=== PATIENT | female | born 1975 | race Two or more races ===

== ENCOUNTER → 2021-10-05 15:24 | Outpatient (BNV) | payer MEDICAID, SELFPAY | PROVIDERS: PCP Family Medicine; Visit Provider Internal Medicine Medical Oncology | DX: D50.9 Iron deficiency anemia, unspecified (principal) | CPT/HCPCS: 99203; 99213; 99214 ==

== ENCOUNTER 2022-05-02 13:26 | Outpatient (REF) | payer MEDICAID, SELFPAY ==
--- NOTE | ~2022-05-02 | MM_ITS ---
EXAMINATION: MM SCREENING DIGITAL BREAST TOMOSYNTHESIS, BILATERAL CLINICAL INFORMATION: Screening. Asymptomatic. The lifetime risk of breast cancer based on the Tyrer-Cuzick Model is 7%. COMPARISON: Mammography: 09/19/2019 (baseline) TECHNIQUE: Digital breast tomosynthesis is performed in both the craniocaudal and mediolateral oblique views along with computer-aided detection (CAD). Synthesized 2D images are generated from the tomosynthesis. FINDINGS: There are scattered areas of fibroglandular density (ACR BI-RADS breast composition Category b). Breast tissue composition borders on predominantly fatty. Background fibroglandular and stromal markings are normal. There is no mass or architectural abnormality or abnormal calcifications. The axilla and skin contours are unremarkable. MM/MM tomosynthesis screening BI IMPRESSION: No mammographic evidence of malignancy. ASSESSMENT: BI-RADS 1: Negative RECOMMENDATION: Routine annual mammography screening. This patient's information was entered into a reminder system with a target due date for their next mammogram.
== END 2022-05-02 13:27 | disposition home or self-care (01) ==
LOC: HO.MAMMO 13:26
PROVIDERS: Visit Provider Family Medicine
DX: Z12.31 Encounter for screening mammogram for malignant neoplasm of breast (principal)
CPT/HCPCS: 77063; 77067

== ENCOUNTER 2022-10-24 10:56 | Outpatient (REF) | payer MEDICAID, SELFPAY | END 2022-10-24 10:57 | disposition home or self-care (01) | LOC: HO.MDS 10:56 | PROVIDERS: Visit Provider Internal Medicine Medical Oncology | DX: D50.9 Iron deficiency anemia, unspecified (principal) | CPT/HCPCS: 96365; J1756 ==

== ENCOUNTER 2022-10-28 17:01 | Outpatient (REF) | payer MEDICAID, SELFPAY ==
--- NOTE | ~2022-10-28 | US_ITS ---
EXAMINATION: US VENOUS WITH DOPPLER UPPER EXTREMITY, RIGHT CLINICAL INFORMATION: Right arm edema and swelling. Thrombophlebitis suspected. COMPARISON: None TECHNIQUE: Ultrasound of the upper extremity is performed using compression sonography and color and pulse Doppler flow with assessment of augmentation of flow. There is also imaging and Doppler assessment of the jugular and subclavian veins. Spectral analysis with color-flow imaging is performed. FINDINGS: Respiratory variation, normal compression, and augmented flow are noted throughout the upper extremity including the axillary and brachial veins. There is normal flow in the internal jugular and subclavian veins. There is superficial venous thrombosis in the distal cephalic vein. The brachial vein appears patent and compressible. US/US venous duplex UE RT IMPRESSION: 1. No DVT demonstrated in the right upper extremity. 2. Superficial venous thrombosis/thrombophlebitis of the distal cephalic vein.
== END 2022-10-28 17:02 | disposition home or self-care (01) ==
LOC: HO.US 17:01
PROVIDERS: Visit Provider Emergency Medicine
DX: T80.1XXA Vascular complications following infusion, transfusion and therapeutic injection, initial encounter (principal); I80.8 Phlebitis and thrombophlebitis of other sites; M79.601 Pain in right arm
CPT/HCPCS: 93971

== ENCOUNTER 2022-11-04 12:45 | Outpatient (REF) | payer MEDICAID, SELFPAY | END 2022-11-04 12:46 | disposition home or self-care (01) | LOC: HO.MDS 12:45 | PROVIDERS: Visit Provider Internal Medicine Medical Oncology | DX: D50.9 Iron deficiency anemia, unspecified (principal) | CPT/HCPCS: 96365; J1756 ==

== ENCOUNTER 2022-11-21 12:52 | Outpatient (REF) | payer MEDICAID, SELFPAY ==
[2022-11-21 13:36] LABS: MANUAL DIFF FLAG NO
[2022-11-21 13:44] LABS: Basophils Percent Auto 0.5 % (0-2); Eosinophils Absolute Auto 0.2 X10*3/uL (0.0-0.4); Eosinophils Percent Auto 2.5 % (0-4); Hematocrit 32.1 % (37.0-47.0); Hemoglobin 9.4 g/dl (12.0-16.0); Imm Gran Abs Auto 0.02 X10*3/uL (0.00-0.03); Imm Gran Pct Auto 0.3 % (0.0-0.4); Lymphocytes Absolute Auto 1.9 X10*3/uL (1.2-4.9); Lymphocytes Percent Auto 28.7 % (20-40); Mean Corpuscular HGB Conc 29.3 g/dl (31.0-35.0); Mean Corpuscular Hemoglobin 21.2 pg (27.0-33.0); Mean Corpuscular Volume 72.3 fL (80.0-98.0); Monocytes Absolute Auto 0.4 X10*3/uL (0.1-1.2); Neutrophils Absolute Auto 4.1 x10*3/uL (2.0-8.3); Platelet Count 311 X10*3/uL (160-400); Red Blood Count 4.44 X10*6/uL (4.20-5.50); Red Cell Distribution Width 22.7 % (11.0-16.0); White Blood Count 6.5 X10*3/uL (4.8-10.8)
== END 2022-11-21 12:53 | disposition home or self-care (01) ==
LOC: HO.MDS 12:52
PROVIDERS: Visit Provider Internal Medicine Medical Oncology
DX: D50.9 Iron deficiency anemia, unspecified (principal)
CPT/HCPCS: 36415; 85025; 96365; J1756

== ENCOUNTER 2022-12-06 11:02 | Outpatient (REF) | payer MEDICAID, SELFPAY ==
[2022-12-06 11:33] LABS: MANUAL DIFF FLAG NO
[2022-12-06 11:35] LABS: Basophils Percent Auto 0.5 % (0-2); Eosinophils Absolute Auto 0.2 X10*3/uL (0.0-0.4); Eosinophils Percent Auto 3.2 % (0-4); Hematocrit 33.9 % (37.0-47.0); Hemoglobin 10.3 g/dl (12.0-16.0); Imm Gran Abs Auto 0.02 X10*3/uL (0.00-0.03); Imm Gran Pct Auto 0.3 % (0.0-0.4); Lymphocytes Absolute Auto 1.7 X10*3/uL (1.2-4.9); Lymphocytes Percent Auto 26.6 % (20-40); Mean Corpuscular HGB Conc 30.4 g/dl (31.0-35.0); Mean Corpuscular Hemoglobin 22.2 pg (27.0-33.0); Mean Corpuscular Volume 72.9 fL (80.0-98.0); Mean Platelet Volume 9.5 fL (9.4-12.3); Monocytes Absolute Auto 0.4 X10*3/uL (0.1-1.2); Monocytes Percent Auto 6.6 % (2-11); Neutrophils Absolute Auto 4.1 x10*3/uL (2.0-8.3); Neutrophils Percent Auto 62.8 % (45-73); Platelet Count 238 X10*3/uL (160-400); Red Blood Count 4.65 X10*6/uL (4.20-5.50); White Blood Count 6.5 X10*3/uL (4.8-10.8)
== END 2022-12-06 11:03 | disposition home or self-care (01) ==
LOC: HO.MDS 11:02
PROVIDERS: Visit Provider Internal Medicine Medical Oncology
DX: D50.9 Iron deficiency anemia, unspecified (principal)
CPT/HCPCS: 36415; 85025; 96365; J1756

== ENCOUNTER 2022-12-15 10:59 | Outpatient (REF) | payer MEDICAID, SELFPAY | END 2022-12-15 11:00 | disposition home or self-care (01) | LOC: HO.MDS 10:59 | PROVIDERS: Visit Provider Internal Medicine Medical Oncology | DX: D50.9 Iron deficiency anemia, unspecified (principal) | CPT/HCPCS: 96365; J1756 ==

== ENCOUNTER 2022-12-23 15:27 | Outpatient (REF) | payer MEDICAID, SELFPAY ==
[2022-12-23 15:13] LABS: MANUAL DIFF FLAG NO
[2022-12-23 15:15] LABS: Basophils Percent Auto 0.5 % (0-2); Eosinophils Absolute Auto 0.2 X10*3/uL (0.0-0.4); Eosinophils Percent Auto 2.9 % (0-4); Hematocrit 33.3 % (37.0-47.0); Hemoglobin 10.3 g/dl (12.0-16.0); Lymphocytes Absolute Auto 1.8 X10*3/uL (1.2-4.9); Mean Corpuscular HGB Conc 30.9 g/dl (31.0-35.0); Mean Corpuscular Hemoglobin 23.7 pg (27.0-33.0); Mean Corpuscular Volume 76.7 fL (80.0-98.0); Mean Platelet Volume 10.2 fL (9.4-12.3); Monocytes Absolute Auto 0.4 X10*3/uL (0.1-1.2); Monocytes Percent Auto 6.2 % (2-11); Neutrophils Absolute Auto 4.1 x10*3/uL (2.0-8.3); Neutrophils Percent Auto 62.4 % (45-73); Platelet Count 317 X10*3/uL (160-400); Red Blood Count 4.34 X10*6/uL (4.20-5.50); Red Cell Distribution Width 22.8 % (11.0-16.0); White Blood Count 6.5 X10*3/uL (4.8-10.8)
== END 2022-12-23 15:28 | disposition home or self-care (01) ==
LOC: HO.MDS 15:27
PROVIDERS: Visit Provider Internal Medicine Medical Oncology
DX: D50.9 Iron deficiency anemia, unspecified (principal)
CPT/HCPCS: 36415; 85025; 96365; J1756

== ENCOUNTER 2024-01-02 13:21 | Outpatient (REF) | payer MEDICAID, SELFPAY | END 2024-01-02 13:22 | disposition home or self-care (01) | LOC: HO.MAMMO 13:21 | PROVIDERS: PCP Family Medicine; Visit Provider Family Medicine | DX: Z12.31 Encounter for screening mammogram for malignant neoplasm of breast (principal) | CPT/HCPCS: 77063; 77067 ==

== ENCOUNTER → 2024-01-02 13:30 | Outpatient (BNV) | payer MEDICAID, SELFPAY | PROVIDERS: PCP Family Medicine; Visit Provider Radiology Diagnostic Radiology | DX: Z12.31 Encounter for screening mammogram for malignant neoplasm of breast (principal) | CPT/HCPCS: 77063; 77067 ==

== ENCOUNTER 2024-01-10 13:04 | Outpatient (AMB) | payer MEDICAID, SELFPAY ==
--- NOTE | 2024-01-10 13:10 | A.OFFVIS_ITS ---
Intake Vital Signs 01/10/24 13:12 Height 5 ft 3 in Weight 167 lb 8.821 oz BMI 29.7 BP 132/80 Blood Pressure Location Lt brachial Position Sitting Pulse 94 Intake Visit Reasons: Colonoscopy screening Intake Note: Siobhan presents in the office as a new patient colonoscopy screening. CC: Head Of Human Resources Required: No Allergies No Known Allergies [No Known Allergies*] Allergy (Unverified 01/10/24 13:12) Medication List - Last Reconciled 01/10/24 by Loulou Fuentes PA-C cholecalciferol (vitamin D3) (Vitamin D3) 1 cap PO DAILY lisinopril 30 mg PO DAILY omeprazole 1 cap PO DAILY HPI HPI Comments History of Present Illness Details A 48 y/o female referred for index screening colonoscopy She is hesitant- she does not want colonoscopy- her sister did cologuard-she had questions about this. No family hx colon cancer She has no GI concerns Appetite good Bowels are normal No nausea, Vomiting, hematemesis, hematochezia fever or chills PFSH Medical History (Updated 01/10/24 @ 13:40 by Loulou Fuentes PA-C) Personal history of kidney stones Depression Anxiety High cholesterol Pre-diabetes Microcytic anemia Surgical History Hx of removal of cyst Family History Maternal Grandmother Heart disease Father Cirrhosis of liver Social History Household Members: Spouse and Children Housing: Apartment Are you a primary inspector health care facilities to a significant other at home: No Do you presently have visiting nurse or other home services: No Alcohol intake: current Alcohol intake frequency: holidays/special occasions only Patient Tobacco Use Status: Current everyday Tobacco user Tobacco use type: Cigarette service: No Current occupational status: employed Current occupation: [employer] Review of Systems Const Details: All systems reviewed and are negative All systems reviewed & are unremarkable except as noted in HPI and below Physical Exam Vital Signs: Last Vital Signs Pulse 94 01/10/24 13:12 BP 132/80 01/10/24 13:12 BMI result Body Mass Index 29.7 Const General: cooperative, healthy appearing, comfortable and no acute distress Orientation/consciousness: patient oriented x3 Limitations: no limitations Eyes Sclerae: sclerae normal Resp Effort & Inspection: normal respiratory effort and able to speak in complete sentences Auscultation: clear to auscultation bilaterally, no rales, no rhonchi and no wheezes Cardio Rate: regular rate Rhythm: regular rhythm Heart sounds: S1 normal heart sound present and S2 normal heart sound present GI Palpation (GI): Soft to palpation and nontender Auscultation: normal bowel sounds Skin General skin exam: no rashes or lesions noted Neuro General: patient oriented x3 Extrem General: Yes full ROM Psych Appearance: grossly normal and well kempt Mental Status: mental status grossly normal Speech and movement: Normal speech and movement present and Clear speech present Affect: normal affect Attitude: cooperative Thought process: Normal thought process present Thought content: Normal thought content present Insight: Good insight present (Psych) Judgement: Good judgement present (Psych) Assessment & Plan Assessment & Plan (1) Encounter for screening colonoscopy: Comment: Very pleasant 48-year-old female referred for index screening colonoscopy very hesitant-we discussed alternatives to include Cologuard, proximally 13% false positive-if positive if we recommend colonoscopy Colonoscopy is gold standard Code(s): Z12.11 - Encounter for screening for malignant neoplasm of colon Plan: Cologuard if positive colonoscopy Plan cologuard if positive colonoscopy Orders: Orders Colonoscopy - GI Use Only 01/10/24 Z12.11 - Encounter for screening for malignant neoplasm of colon Referrals Cologuard Test Z12.11 - Encounter for screening for malignant neoplasm of colon Medications: New polyethylene glycol 3350 (Miralax) Take as directed by mouth the day before your procedure. 238 grams PO ONCE PRN 238 grams 0RF laxative effect 1 day bisacodyl (Dulcolax (bisacodyl)) Day before procedure @ 12 noon Take 4 tablets by mouth followed by large glass of water 20 mg (4 x 5 mg) PO ONCE PRN 4 tabs 0RF colonoscopy prep 1 day Z12.11 - Encounter for screening for malignant neoplasm of colon Patient Instructions: Will schedule colonoscopy-however if she reconsiders she will inform us. We discussed procedure, rare risk need for escorted due to anesthesia as well as prep MiraLax Gatorade, reviewed literature given We have submitted for Cologuard-at least this will give us - colon cancer screen. She will call 2 weeks after submitting sample for results She is encouraged to call with any questions or concerns or reconsideration. Appreciate the opportunity assist in the care this pleasant patient Coding Level of Care Code New Pt Level 3 (36393) Diagnoses Encounter for screening colonoscopy Z12.11 Time Spent (min) 30
[2024-01-10 13:12] VITALS: BP 132/80; PULSE 94; BMI 29.7
== END 2024-01-10 14:30 | disposition home or self-care (01) ==
PROVIDERS: Visit Provider Physician Assistant
DX: Z12.11 Encounter for screening for malignant neoplasm of colon (principal); Z01.818 Encounter for other preprocedural examination
CPT/HCPCS: 99203

== ENCOUNTER → 2024-01-10 13:04 | Outpatient (BNVA) | payer MEDICAID, SELFPAY | PROVIDERS: Visit Provider Physician Assistant | DX: Z01.818 Encounter for other preprocedural examination (principal) | CPT/HCPCS: 99212 ==

== ENCOUNTER 2024-01-17 10:45 | Outpatient (REF) | payer MEDICAID, SELFPAY ==
--- NOTE | ~2024-01-17 | US_ITS ---
EXAMINATION: US PELVIS CLINICAL INFORMATION: Ongoing menorrhagia and anemia; the last menstrual period was on 11/30/2023. COMPARISON: CT abdomen and pelvis dated 07/07/2020. TECHNIQUE: Ultrasound of the pelvis is performed using both transabdominal and transvaginal transducers along with Doppler. Transvaginal imaging is performed due to inadequate visualization transabdominally. FINDINGS: The uterus is of normal size and echogenicity, measuring 8.5 x 4.9 x 5.4 cm. The uterus is anteverted and anteflexed. A regular homogeneous endometrium is identified measuring 1.1 cm. Nabothian cysts are seen within the cervix FIBROIDS: There is 1 fibroid seen. 1. Location: Mid rightward body, subendometrial. Size: 3.4 x 2.8 x 3.1 cm. Fibroid characteristics: Heterogeneous echotexture. Both ovaries are of normal size and echogenicity. The ovaries show normal doppler flow. The right ovary measures 2.7 x 2.0 x 1.9 cm for a volume of 5.2 mL. A few punctate calcifications are noted. The left ovary measures 2.7 x 1.9 x 2.1 cm for a volume of 5.5 mL. There is no pelvic free fluid. No adnexal mass is seen. US/US pelvic and transvaginal IMPRESSION: 1. A uterine fibroid is seen, as detailed. 2. Nabothian cysts are seen within the cervix. 3. .There are punctate calcifications, possibly sequela of prior infection or inflammation, or psammomatous calcifications. These are of doubtful clinical significance.
== END 2024-01-17 10:46 | disposition home or self-care (01) ==
LOC: HO.US 10:45
PROVIDERS: PCP Student in an Organized Health Care Education/Training Program; Visit Provider Student in an Organized Health Care Education/Training Program
DX: D50.9 Iron deficiency anemia, unspecified (principal); D25.9 Leiomyoma of uterus, unspecified; N88.8 Other specified noninflammatory disorders of cervix uteri; N84.1 Polyp of cervix uteri
CPT/HCPCS: 76830; 76856

== ENCOUNTER 2024-01-19 11:43 | Outpatient (REF) | payer MEDICAID, SELFPAY ==
[2024-01-19 14:03] LABS: Estimated Average Glucose 148 mg/dL; Hemoglobin A1c % 6.8 % (<6.0)
[2024-01-19 14:04] LABS: Hematocrit 35.6 % (37.0-47.0); Hemoglobin 9.8 g/dl (12.0-16.0); Mean Corpuscular HGB Conc 27.5 g/dl (31.0-35.0); Mean Corpuscular Hemoglobin 18.3 pg (27.0-33.0); Mean Corpuscular Volume 66.4 fL (80.0-98.0); Mean Platelet Volume 10.4 fL (9.4-12.3); Platelet Count 270 X10*3/uL (160-400); Red Blood Count 5.36 X10*6/uL (4.20-5.50); Red Cell Distribution Width 19.4 % (11.0-16.0); White Blood Count 5.5 X10*3/uL (4.8-10.8)
[2024-01-19 14:23] LABS: Alanine Aminotransferase 32 U/L (0-31); Albumin Level 4.4 g/dL (3.5-5.0); Alkaline Phosphatase 81 U/L (39-117); Anion Gap 13 (12-20); Aspartate Amino Transferase 30 U/L (5-31); Bilirubin Total 0.3 mg/dL (0.0-1.0); Blood Urea Nitrogen 12 mg/dL (9-16); Calcium 9.4 mg/dL (8.4-10.2); Carbon Dioxide 28 mmol/L (22-29); Chloride 103 mmol/L (96-108); Cholesterol 216 mg/dL (<200); Estimated Glomerular Filt Rate > 60; Glucose Random 173 mg/dL (60-115); HDL Cholesterol 43 mg/dL (>40); Iron 23 mcg/dL (30-160); LDL Cholesterol Calculated 129 mg/dL (<100); Percent Iron Saturation 5 % (15-50); Potassium 5.3 mmol/L (3.3-5.1); Sodium 139 mmol/L (135-145); Total Iron Binding Capacity 470 mcg/dL (228-428); Total Protein 7.7 g/dL (6.5-8.0); Triglycerides 224 mg/dL (<150); Unsaturated Iron Binding 447 ug/dL
[2024-01-19 14:26] LABS: Ferritin 11 ng/mL (10-250); TSH reflex Free T4 1.09 uIU/mL (0.32-4.0)
[2024-01-19 17:16] LABS: CT PCR NOT DETECTED (Not Detect.); NG PCR NOT DETECTED (Not Detect.)
[2024-01-20 09:47] LABS: HBS Num1 119.73 mIU/mL (0-7.99); HBc Num1 0.13 S/CO (0.00-0.79); HBsAGNum1 0.43 S/CO (0.00-0.99); HIV AB/AG Nonreactive (Nonreactive); HIV Num 1 0.06 S/CO (0.00-0.99); Hepatitis B Core Antibody Nonreactive (Nonreactive); Hepatitis B Surface Antigen Negative (Negative); ~HepC Num1 0.14 S/CO (0.00-0.79); ~Hepatitis B Surface Antibody REACTIVE (Nonreactive); ~Hepatitis C Antibody Nonreactive (Nonreactive)
[2024-01-20 09:51] LABS: Syphilis Screen Nonreactive (Nonreactive)
== END 2024-01-19 11:44 | disposition home or self-care (01) ==
LOC: HO.HHCL 11:43
PROVIDERS: Visit Provider Student in an Organized Health Care Education/Training Program
DX: Z00.00 Encounter for general adult medical examination without abnormal findings (principal); D50.9 Iron deficiency anemia, unspecified; Z20.2 Contact with and (suspected) exposure to infections with a predominantly sexual mode of transmission
CPT/HCPCS: 0353U; 36415; 80053; 80061; 82728; 83036; 83540; 84443; 85027; 86704; 86706; 86780; 86803; 87340; 87389

== ENCOUNTER 2024-03-27 10:54 | Outpatient (AMB) | payer MEDICAID, SELFPAY ==
--- NOTE | 2024-03-27 10:59 | A.OFFVIS_ITS ---
Vital Signs 03/27/24 11:00 Height 5 ft 3 in Weight 169 lb BMI 29.9 BP 142/80 H Intake Visit Reasons: US follow up/bleeding/PCP referral Intake Note: Having irregular period and painful Field Recorder Required: No Information Interpreted: non-clinical & clinical Rehab/Pre Vocational Counselor: Rehab/Pre Vocational Counselor Present (Aidyn) Allergies No Known Allergies [No Known Allergies*] Allergy (Verified 03/27/24 11:07) Is last menstrual period known: Yes Last menstrual period: 02/28/24 Post menopausal: No HPI Comments Details: Patient is here today referred from her primary care due to her heavy menstrual bleeding and history of anemia. She reports her cycles were usually on time but had skipped up to 3 months in early winter. Bleeding is 6 days and heavy with clots for the entirety. She reports her last Pap was 2021. Records reveal GC chlamydia were negative, fibroid noted on ultrasound. Admits to being sexually active with long-term recent STD exposure. Does not have any pelvic pain. Currently having treatment plan and follow up for her hypertension. [facility] Medical History (Updated 03/27/24 @ 12:48 by Madison Epstein CNM) Fibroid Personal history of kidney stones Depression Anxiety High cholesterol Pre-diabetes Microcytic anemia Surgical History Hx of tubal ligation Hx of removal of cyst Family History Maternal Grandmother Heart disease Father Cirrhosis of liver Social History Household Members: Spouse and Children Housing: Apartment Are you a primary career development manager to a significant other at home: No Do you presently have visiting nurse or other home services: No Alcohol intake: current Alcohol intake frequency: a few times a week Patient Tobacco Use Status: Current everyday Tobacco user Tobacco use type: Cigarette Cigarettes Per Day: 9 service: No Current occupational status: employed 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 Female Reproductive History Menstrual Age of Menarche: 15 Date of last menstrual period: 02/28/24 control method: permanent sterilization Total pregnancies: 4 Full term: 3 Number of Living Children: 3 Ab induced: 1 Date of last pap smear: 03/16/22 (negative) History of abnormal pap smear: Yes Date of Mammogram: 01/02/24 Review of Systems Const All systems reviewed & are unremarkable except as noted in HPI and below Physical Exam Vital Signs: Last Vital Signs BP 142/80 H 03/27/24 11:00 BMI result Body Mass Index 29.9 Const General: cooperative, healthy appearing and no acute distress Orientation/consciousness: patient oriented x3 GI Inspection: Yes normal to inspection Palpation (GI): Soft to palpation and Other GI palpation findings present (Nontender) Rectal Exam - Female: visual inspection normal General: Yes bladder normal to palpation External Female Exam: normal appearance of the urethra Speculum Exam - Vagina: normal appearance of the vagina, normal palpation and normal vaginal discharge Speculum Exam - Cervix: normal appearance of the cervix, normal palpation and Other cervical findings present (Ectopy with superficial blood vessels bled slightly with Pap) Bimanual exam- vagina & uterus: normal bimanual exam, normal palpation, uterine size normal, bladder normal to palpation, normal palpation, uterine shape normal and non-tender Bimanual Exam- Adnexa, other: normal adnexae Neuro General: patient oriented x3 Results Reviewed Results Reviewed: [place] [id number] Ultrasound Report Signed Patient: Siobhan Armijo MR#: [id number] : 1975 Acct:[id number] Age/Sex: 48 / F ADM Date: 01/17/24 Loc: .[place] Attending Dr: Angelia Minor MD Ordering Physician: Angelia Magdaleno MD Date of Service: 01/17/24 Procedure(s): US pelvic and transvaginal Accession Number(s): [id number] cc: Angelia Magdaleno MD~ EXAMINATION: US PELVIS CLINICAL INFORMATION: Ongoing menorrhagia and anemia; the last menstrual period was on 11/30/2023. COMPARISON: CT abdomen and pelvis dated 07/07/2020. TECHNIQUE: Ultrasound of the pelvis is performed using both transabdominal and transvaginal transducers along with Doppler. Transvaginal imaging is performed due to inadequate visualization transabdominally. FINDINGS: The uterus is of normal size and echogenicity, measuring 8.5 x 4.9 x 5.4 cm. The uterus is anteverted and anteflexed. A regular homogeneous endometrium is identified measuring 1.1 cm. Nabothian cysts are seen within the cervix FIBROIDS: There is 1 fibroid seen. 1. Location: Mid rightward body, subendometrial. Size: 3.4 x 2.8 x 3.1 cm. Fibroid characteristics: Heterogeneous echotexture. Both ovaries are of normal size and echogenicity. The ovaries show normal doppler flow. The right ovary measures 2.7 x 2.0 x 1.9 cm for a volume of 5.2 mL. A few punctate calcifications are noted. The left ovary measures 2.7 x 1.9 x 2.1 cm for a volume of 5.5 mL. There is no pelvic free fluid. No adnexal mass is seen. US/US pelvic and transvaginal IMPRESSION: 1. A uterine fibroid is seen, as detailed. 2. Nabothian cysts are seen within the cervix. 3. .There are punctate calcifications, possibly sequela of prior infection or inflammation, or psammomatous calcifications. These are of doubtful clinical significance. Dictated By: Derek Kirkpatrick MD Signed By: <Electronically signed by Derek Kirkpatrick MD in OV> 01/22/24 1520 DD/ 1119 TD/TT: Direct Support Staff Member: GURPREET Assessment & Plan Assessment & Plan (1) Abnormal uterine bleeding (AUB): Code(s): N93.9 - Abnormal uterine and vaginal bleeding, unspecified (2) Fibroid: Code(s): D21.9 - Benign neoplasm of connective and other soft tissue, unspecified Plan Discussed: Workup for AUB to include an endometrial biopsy, anticipatory guidance reviewed today for biopsy to include [id number] Tylenol or ibuprofen per manufacture's recommendation on dosing to be taken 1 hour before her procedure with food and fluids. Advised her that treatment would include consideration for progesterone only products with the recommendation of a Mirena IUD. Today she has not that interested because she had a friend to reports she developed cancer from her IUD. Due to her recent hypertension I advised her estrogen would be avoided at this time. All of her questions and concerns were addressed to the best of my ability and shared decision making. She is agreeable to the plan of care. Appointment to be scheduled today before leaving the office. This note is constructed using voice recognition software. While every effort has been made to ensure accuracy, rolling mill operator errors may have been included. Orders: Orders Pap Smear Today N93.9 - Abnormal uterine and vaginal bleeding, unspecified Bacterial Vaginosis Panel Today N93.9 - Abnormal uterine and vaginal bleeding, unspecified Coding Level of Care Code New Pt Level 4 (51480) Diagnoses Abnormal uterine bleeding (AUB) N93.9 Fibroid D21.9
[2024-03-27 11:00] VITALS: BP 142/80; BMI 29.9
== END 2024-03-27 13:23 | disposition home or self-care (01) ==
PROVIDERS: PCP Student in an Organized Health Care Education/Training Program; Visit Provider Advanced Practice Midwife
DX: N93.9 Abnormal uterine and vaginal bleeding, unspecified (principal); D21.9 Benign neoplasm of connective and other soft tissue, unspecified
CPT/HCPCS: 99204

== ENCOUNTER 2024-03-27 10:54 | Outpatient (REF) | payer MEDICAID, SELFPAY ==
[2024-03-27 16:15] LABS: Bacterial Vaginosis PCR NEGATIVE (Negative); Candida Group PCR NOT DETECTED (Not Detect); Candida glab krusei PCR NOT DETECTED (Not Detect); Trichomonas vaginalis PCR NOT DETECTED (Not Detect)
[2024-04-03 20:44] LABS: HPV mRNA E6/E7 rflx Not Detected (Not Detected)
== END 2024-03-27 10:55 | disposition home or self-care (01) ==
LOC: HO.LNP 10:54
PROVIDERS: PCP Student in an Organized Health Care Education/Training Program; Visit Provider Advanced Practice Midwife
DX: N93.9 Abnormal uterine and vaginal bleeding, unspecified (principal); N92.6 Irregular menstruation, unspecified; R10.2 Pelvic and perineal pain; D21.9 Benign neoplasm of connective and other soft tissue, unspecified; Z20.2 Contact with and (suspected) exposure to infections with a predominantly sexual mode of transmission
CPT/HCPCS: 0352U; 87624; 88142; 99212

== ENCOUNTER 2024-11-14 13:46 | Outpatient (REF) | payer MEDICAID, SELFPAY ==
[2024-11-14 16:17] LABS: Eosinophils Absolute Auto 0.2 X10*3/uL (0.0-0.4); Imm Gran Abs Auto 0.01 X10*3/uL (0.00-0.03); Imm Gran Pct Auto 0.2 % (0.0-0.4); MANUAL DIFF FLAG SCAN; SCAN SMEAR FLAG 1
[2024-11-14 16:18] LABS: Basophils Percent Auto 0.8 % (0-2); Eosinophils Percent Auto 3.2 % (0-4); Lymphocytes Absolute Auto 1.6 X10*3/uL (1.2-4.9); Lymphocytes Percent Auto 29.3 % (20-40); Mean Corpuscular HGB Conc 26.2 g/dl (31.0-35.0); Mean Corpuscular Hemoglobin 15.8 pg (27.0-33.0); Monocytes Absolute Auto 0.5 X10*3/uL (0.1-1.2); Monocytes Percent Auto 8.7 % (2-11); Neutrophils Absolute Auto 3.1 x10*3/uL (2.0-8.3); Neutrophils Percent Auto 57.8 % (45-73); PLT CLUMP 1; Red Blood Count 4.31 X10*6/uL (4.20-5.50); Red Cell Distribution Width 21.1 % (11.0-16.0)
[2024-11-14 16:24] LABS: Mean Corpuscular Volume 60.3 fL (80.0-98.0); PLT ABN DIST 1
[2024-11-14 16:27] LABS: Hemoglobin 6.8 g/dl (12.0-16.0)
[2024-11-14 16:28] LABS: Estimated Average Glucose 128 mg/dL; Hemoglobin A1C 75.3013 umol/L; Hemoglobin A1c % 6.1 % (<6.0); Total Hemoglobin (HGBA1C) 1742.7531 umol/L
[2024-11-14 16:38] LABS: Platelet Count 198 X10*3/uL (160-400); White Blood Count 5.3 X10*3/uL (4.8-10.8)
[2024-11-14 16:39] LABS: SLIDE REVIEW VERIFIED
[2024-11-14 17:07] LABS: Vitamin B12 422 pg/mL (200-900)
--- OUTSIDE RECORDS SUMMARY | 2024-11-14 17:37 | XMS_ITS | Clinical Summary ---
Author Organization [employer] Address [address] [place] [address] [address] [place] [address] Care Team Providers Care Science And Operations Officer Name Role Phone Sheyla Harris MD Primary Care Provider [phone] Madison Epstein Unavailable Meka García LEI Unavailable Allergies No known active allergies Medications rosuvastatin (Crestor) 10 MG tabletIndication s:Type 2 diabetes mellitus without complication, without long-term current use of insulin (CMS/HCC),Dyslip idemia Take 1 tablet (10 mg) by mouth Once per day. 30 tablet 02/28/20 24 025 Active Blood Glucose Monitoring Suppl (FreeStyle [place] Lite) w/Device kitIndications:T ype 2 diabetes mellitus without complication, without long-term current use of insulin (CMS/HCC) Use to test blood sugar bid dx dm 1 kit 02/28/20 24 Active glucose blood (FREESTYLE LITE) test stripIndications :Type 2 diabetes mellitus without complication, without long-term current use of insulin (CMS/HCC) Use bid. Dx diabetes 60 each 02/28/20 24 Active FreeStyle lancetsIndicatio ns:Type 2 diabetes mellitus without complication, without long-term current use of insulin (CMS/HCC) 1 each by Other route 2 times daily. Use bid, dx type 2 diabetes 60 each 02/28/20 24 Active Alcohol Swabs (Alcohol Pads) 70 % padsIndications: Type 2 diabetes mellitus without complication, without long-term current use of insulin (CMS/HCC) Use as directed on skin 100 each 02/28/20 24 Active semaglutide (Ozempic) 2 MG/1.5ML solution pen-injectorIndi cations:Type 2 diabetes mellitus without complication, without long-term current use of insulin ([facility]) Inject 0.25mg subcutaneously q week x 4 weeks then incase to 0.5mg subcutaneously q week. 1.5 mL 02/28/20 24 Active sennosides (Senokot) 8.6 MG tabletIndication s:Iron deficiency anemia, unspecified iron deficiency anemia type 1-2 tabs po nightly prn constipation 60 tablet 02/28/20 24 Active ferrous sulfate 325 (65 Fe) MG EC tabletIndication s:Iron deficiency anemia, unspecified iron deficiency anemia type TAKE 1 TABLET BY MOUTH TWICE A DAY WITH FOOD DONT CRUSH OR CHEW OR SPLIT 180 tablet 1 02/28/20 24 Active docusate sodium (Colace) 100 MG capsuleIndicatio ns:Iron deficiency anemia, unspecified iron deficiency anemia type Take 1 tab po bid prn constipation 60 capsule 02/28/20 24 Active Lancet Device misc 1 each 2 times daily. Use to check blood sugar twice per day 1 each 03/20/20 24 Active metFORMIN, OSM, (Fortamet) 500 MG 24 hr tabletIndication s:Type 2 Diabetes Mellitus Take 1 tablet (500 mg) by mouth Once per day. Do not crush, chew, or split. 90 tablet 3 05/02/20 24 025 Active dextran 70-hypromellose (artificial tears) 0.1-0.3 % ophthalmic solutionIndicati ons:Dry eyes, bilateral Administer 1 drop into both eyes if needed in the morning, at noon, and at bedtime for dry eyes. 15 mL 3 06/26/20 24 025 Active omeprazole (PriLOSEC) [address] capsuleIndicatio ns:Gastroesophag eal reflux disease, unspecified whether esophagitis present TAKE 1 CAPSULE BY MOUTH EVERY DAY BEFORE A MEAL NEEDED 90 capsule 08/20/20 24 Active lisinopril (Prinivil) 20 MG tabletIndication s:Essential (primary) hypertension Take 1 tablet (20 mg) by mouth Once per day. 90 tablet 1 11/14/19 25 026 Active nicotine polacrilex (Nicorette) 2 MG gumIndications:S moking Chew and park 1 gum every 1-2 hours as needed in place of cigarette 100 each 3 11/14/19 25 Active varenicline (Chantix) 0.5 MG tabletIndication s:Tobacco dependence syndrome Take 0.5 mg PO once daily on Days 1 through 3, then 0.5 mg PO twice daily on Days 4 through 7, and finally 1 mg PO twice daily on day 8 until the end of treatment. 12 tablet 2 01/10/20 24 025 Discontin ued(Side effects) varenicline (Chantix) 1 MG tabletIndication s:Tobacco dependence syndrome Take 1 tablet (1 mg) by mouth 2 times daily. 0.5 mg PO once daily on Days 1 through 3, then 0.5 mg PO twice daily on Days 4 through 7, and finally 1 mg PO twice daily on day 8 until the end of treatment. 60 tablet 2 01/10/20 24 025 Discontin ued(Side effects) lisinopril 20 MG tabletIndication s:Type 2 diabetes mellitus without complication, without long-term current use of insulin ([facility]) TAKE 1.5 TABLETS (30 MG TOTAL) BY MOUTH ONE TIME EACH DAY. 06/25/20 24 025 Discontin ued(Dose adjustmen t) Active Problems Problem Noted Date Diagnosed Date Cardiac risk counseling 09/10/2024 Overview (09/10/2024): Calculated 09/10/24: intermediate risk The 10-year ASCVD risk score (Micah SILVER, et al., 2019) is: 9.2% Values used to calculate the score: Age: 48 years Sex: Female Is Non- : No Diabetic: Yes Tobacco smoker: Yes Systolic Blood Pressure: 130 mmHg Is BP treated: No HDL Cholesterol: 43 mg/dL Total Cholesterol: 216 mg/dL Lab Results Component Value Date LDLCHOLCAL 129 (H) 01/19/2024 -Atherosclerotic Cardiovascular Disease (ASCVD) Risk Calculator is intended for a person age 40-79 without ASCVD and with LDL-cholesterol < 190/mg/dl to assesses the chances of developing heart disease over the next 10 years. -Tobacco cessation: discussed -Statin therapy: Crestor 10mg -Importance of moderate physical activity and nutrition interventions discussed. Type 2 diabetes mellitus, wi stefani long-term current use of insulin 02/28/2024 Overview (05/02/2024): Diabetes diagnosed 02/28/24 based on elevated A1c 6.8 Lab Results Component Value Date HGBA1C 6.8 (H) 01/19/2024 HGBA1C 6.2 (H) 09/28/2021 Lab Results Component Value Date CREATININE 0.80 01/19/2024 -Curtis/Arb: none -Statin therapy: rosuvastatin 10mg daily started 02/28/24 -Diabetic eye exam: referral placed for [facility] 02/28/24 -Diabetic foot exam: normal, risk cat 0 02/28/24 -Continue lifestyle modifications -Semiglutide 0.25 weekly denied twice -followed by RN type 2 diabetes team - metformin ER 500mg daily started 05/02/24 Assessment & Plan (02/28/2024 2:54 PM EDT): Diabetes diagnosed 02/28/24 based on elevated A1c 6.8 Lab Results Component Value Date HGBA1C 6.8 (H) 01/19/2024 HGBA1C 6.2 (H) 09/28/2021 Lab Results Component Value Date CREATININE 0.80 01/19/2024 -Curtis/Arb: none -Statin therapy: rosuvastatin 10mg daily started 02/28/24 -Diabetic eye exam: referral placed for [facility] 02/28/24 -Diabetic foot exam: normal, risk cat 0 02/28/24 -Continue lifestyle modifications -Semiglutide 0.25 weekly for 4 weeks then 0.5mg weekly thereafter started 02/28/24 -referral to RN for diabetic teaching on nutrition, glucose monitoring and medication administration 02/28/24 Fibroid 02/05/2024 Overview (02/05/2024): US 12/06/23: FIBROIDS: There is 1 fibroid seen. Location: Mid rightward body, subendometrial. Size: 3.4 x 2.8 x 3.1 cm. Fibroid characteristics: Heterogeneous echotexture. Perimenopause 01/10/2024 Obesity 12/06/2023 Assessment & Plan (12/06/2023 7:46 PM EST): -Advised pt to improve diet and exercise,discussed healthy life style -discussed anesthesiology physician referral but refusing Colon cancer screening 11/22/2023 Overview (02/28/2024): -per oncology note has apt in future with GI. Need to confirm with pt at follow up -referred on 12/06/2023 for colonoscopy -pt reports had cologuard but not sure of the results, reports insurance would not cover colonoscopy Assessment & Plan (02/28/2024 2:55 PM EDT): -per oncology note has apt in future with GI. Need to confirm with pt at follow up -referred on 12/06/2023 for colonoscopy -pt reports had cologuard but not sure of the results, reports insurance would not cover colonoscopy Assessment & Plan (01/10/2024 3:31 PM EDT): -per oncology note has apt in future with GI. Need to confirm with pt at follow up -referred on 12/06/2023 for colonoscopy Preventative health care 08/26/2023 Overview (02/28/2024): -next physical exam due after November 2024 -eye care facilitated by referral placed to [facility] 02/28/24 -dental home is -health care proxy Assessment & Plan (12/06/2023 7:54 PM EST): -pap smear 03/2022 neg/neg -Mammo 2018 BIRADS-1 neg-referred today for MM -colonoscopy : never-referred today -vaccines MMRx1, COVID 19 x4 -last booster advised but refused today , tdap 2011 today booster , Flu vaccine today . Will need to discuss about pneumonia vaccine at future for active tobacco smoker -labs x annual exam-will RTC in fasting -pt agreed to have STI testing including HIV to have for baseline Alcohol consumption binge drinking 08/26/2023 Assessment & Plan (12/06/2023 7:46 PM EST): alcohol binging -1 bottle of wine on weekends and can drink 2 times a week CAGE 0/4 -advised to stop or at least to try to decrease consumption -discussed about OBAT but thinks can cut on drinking by her own Iron deficiency anemia 09/24/2022 Overview (02/28/2024): Lab Results Component Value Date FERRITIN 11 01/19/2024 HGB 9.8 (L) 01/19/2024 HGB 10.3 (L) 12/23/2022 HGB 9.1 (L) 09/28/2021 HGB 11.2 (L) 04/05/2021 HEMATOCRIT 30.5 (L) 09/28/2021 HEMATOCRIT 35.7 04/05/2021 Has pulp bleacher apt for heavy menses March 2024, seen by GI and cologuard done per pt colonoscopy was not covered by insurance. Will check FOBT 02/28/24 -reestablished with hematology 02/13/[address] Marti -hemoglobin electrophoresis: Decreased A2 otherwise normal. -once iron deficiency is corrected she could have underlying thalassemia. -Transglut. IgA:<1. -She received IV iron between October 24 till December 23, received 6 doses. -IV iron offered however she has difficulty with IV access, so would like to wait. -she will incorporate more iron containing foods in her diet and try to take the iron by mouth. -she will be following with pulp bleacher and GI in the near future. -return to hematology in 4 months Assessment & Plan (02/28/2024 2:56 PM EDT): Lab Results Component Value Date FERRITIN 11 01/19/2024 HGB 9.8 (L) 01/19/2024 HGB 10.3 (L) 12/23/2022 HGB 9.1 (L) 09/28/2021 HGB 11.2 (L) 04/05/2021 HEMATOCRIT 30.5 (L) 09/28/2021 HEMATOCRIT 35.7 04/05/2021 Has pulp bleacher apt for heavy menses March 2024, seen by GI and cologuard done per pt colonoscopy was not covered by insurance. Will check FOBT 02/28/24 -reestablished with hematology 02/13/[address] Marti -hemoglobin electrophoresis: Decreased A2 otherwise normal. -once iron deficiency is corrected she could have underlying thalassemia. -Transglut. IgA:<1. -She received IV iron between October 24 till December 23, received 6 doses. -IV iron offered however she has difficulty with IV access, so would like to wait. -she will incorporate more iron containing foods in her diet and try to take the iron by mouth. -she will be following with pulp bleacher and GI in the near future. -return to hematology in 4 months Assessment & Plan (01/10/2024 3:57 PM EDT): Lab Results Component Value Date HGB 10.3 (L) 12/23/2022 HGB 10.3 (L) 12/06/2022 HGB 9.1 (L) 09/28/2021 HGB 11.2 (L) 04/05/2021 HEMATOCRIT 30.5 (L) 09/28/2021 HEMATOCRIT 35.7 04/05/2021 -referral to floorwalker to get reestablished 01/10/2024 Assessment & Plan (12/06/2023 7:45 PM EST): She received IV iron between October until December 2022 received 6 doses. -plan was to f up w her Animal Humane Agent Supervisor in 6 mo after last apt -referred today for pelvic/TV US -referred to GIFT CONSULTANT -check CBC ,iron panel -advised pt to resume iron daily, if significant low will call pt to advise to reschedule apt w her Animal Humane Agent Supervisor Essential (primary) hypertension 03/29/2022 Overview (08/26/2023): -Blood pressure is at goal -Continue lifestyle modifications -Continue current medications Assessment & Plan (02/28/2024 2:46 PM EDT): -Blood pressure is at goal -Continue lifestyle modifications -Continue current medications Assessment & Plan (01/10/2024 4:00 PM EDT): -Blood pressure is at goal -Continue lifestyle modifications -Continue current medications Assessment & Plan (12/06/2023 7:47 PM EST): Controlled BP Referred to ophthalmology today -continue lisinopril 20mg daily Dyslipidemia 03/29/2022 Overview (02/28/2024): Lab Results Component Value Date CHOL 216 (H) 01/19/2024 TRIG 224 (H) 01/19/2024 HDL 43 01/19/2024 LDLCHOLCAL 129 (H) 01/19/2024 -continue lifestyle modification Rosuvastatin 10mg started 02/28/24 Assessment & Plan (02/28/2024 2:47 PM EDT): Lab Results Component Value Date CHOL 216 (H) 01/19/2024 TRIG 224 (H) 01/19/2024 HDL 43 01/19/2024 LDLCHOLCAL 129 (H) 01/19/2024 -continue lifestyle modification Rosuvastatin 10mg started 02/28/24 Assessment & Plan (01/10/2024 4:01 PM EDT): Lab Results Component Value Date CHOLESTEROL 213 (H) 09/28/2021 LDLCHOL 142 (H) 09/28/2021 LDLCHOL 115 (H) 04/05/2021 HDLCHOL 37 (L) 09/28/2021 CHOLHDLRAT 5.8 (H) 09/28/2021 -continue lifestyle modifications Disorder of uterine cervix 08/29/2013 Tobacco dependence syndrome 08/29/2013 Overview (02/28/2024): -Cigg/day: down to 4 cig per day, down from 1 ppd -Age started: teens -Total years smoking: > 20 -Pack year history: > 20 Encouraged smoking cessation resources such as pharmacomtherapy, [facility] smoking cessation group, and [facility] pharmacy smoking cessation clinic. Discussed USPSTF recommends annual lung cancer screening with low dose CT in people who meet the following criteria: -ages 50 to 80 years. -have a 20 pack-year smoking history. -currently smoke cigarettes or quit within the past 15 years. -LDCT: due age 50 -Prescribed tobacco patch December 2020 -01/10/2024 directed to stop using tobacco patch and start taking Chantix Assessment & Plan (02/28/2024 2:48 PM EDT): -Cigg/day: down to 4 cig per day, down from 1 ppd -Age started: teens -Total years smoking: > 20 -Pack year history: > 20 Encouraged smoking cessation resources such as pharmacomtherapy, [facility] smoking cessation group, and [facility] pharmacy smoking cessation clinic. Discussed USPSTF recommends annual lung cancer screening with low dose CT in people who meet the following criteria: -ages 50 to 80 years. -have a 20 pack-year smoking history. -currently smoke cigarettes or quit within the past 15 years. -LDCT: due age 50 -Prescribed tobacco patch December 2020 -01/10/2024 directed to stop using tobacco patch and start taking Chantix Assessment & Plan (01/10/2024 4:06 PM EDT): -Prescribed tobacco patch December 2020 -01/10/2024 directed to stop using tobacco patch and start taking Chantix -smokes almost one pack of cigarettes a day (about 15 from the pack per day) Assessment & Plan (12/06/2023 7:46 PM EST): Started tobacco smoking at 17 y of age ,1/2 PQT a day ,smoking for 31 years ,PQT calc a year 15.5 -encouraged in length about tobacco cessation -refuse tobacco cesation program offered today -agreed to try w nicotine patch 14 mg x 6 weeks then will need taper dose at next apt and px 4 mg nicotine gums prn -f w PCP Chronic rhinitis 04/04/2012 Resolved Problems Problem Noted Date Diagnosed Date Resolved Date Moderate recurrent major depression 03/29/2022 10/30/2024 Assessment & Plan (12/06/2023 7:46 PM EST): PHQ9: 11 ,JAYLYN 15 ,no SI ,denies hallucinations nor dago -Refuse BH offered today -may need to consider antidepressants -pt will f w PCP in next 4 weeks Encounters Date Type Department Care Team Description 11/14/2024 1:00 PM EST Office Visit [facility] [address] [place] [phone] Dolores Hodges ANP Essential (primary) hypertension (Primary Dx); Smoking; Encounter for immunization 11/14/2024 Telephone [facility] [address] [place] [phone] Sheyla Harris MD CRITICAL RESULT 11/14/2024 Travel 11/14/2024 Orders Only [facility] [address] [place] [phone] Sheyla Harris MD Type 2 diabetes mellitus without complication, without long-term current use of insulin ([facility]) (Primary Dx); Iron deficiency anemia, unspecified iron deficiency anemia type 11/12/2024 Telephone [facility] [address] [place] [address] Sheyla Harris MD Med Refill 10/25/2024 Telephone [facility] [address] [place] [address] Angela Banuelos [place] December Recall 09/24/2024 Refill [facility] [address] [place] [phone] Sheyla Harris MD 08/20/2024 Refill [facility] [address] [place] [phone] Sheyla Harris MD Gastroesophageal reflux disease, unspecified whether esophagitis present from Last 3 Months Immunizations Name Administration Dates Next Due DTP 05/16/1982,04/15/1978 Hep A, Adult 02/28/2024 Hep B, adult 02/28/2024 IPV 05/16/1982,1977 Influenza Injectable Quadriv alant Preservative Free IIV4 MDCK 08/12/2022 Influenza injectable quadriv alent preservative free 12/06/2023 Influenza, IIV3, injectable 07/15/2009 Influenza, seasonal, injecta ble, preservative free 11/14/2024 MMR 08/16/1978 Pfizer Covid-19 Vaccine 12+ 12/09/2021,,05/28/2021 Pfizer Covid-19 Vaccine 12+ ricky-sucrose (Jimenez Cap) 12/09/2021 Pneumococcal Conjugate PCV 20 02/28/2024 TD (adult), 2 Lf tetanus tox oid, preservative free, adsorbed 10/25/1994 Tdap 12/06/2023,06/04/2012 Family History Medical History Relation Name Comments HTN Daughter Alcohol abuse Father Glaucoma Maternal Grandmother heart dx Maternal Grandmother DM2,HTN Mother Relation Name Status Comments Daughter Father Maternal Grandmother Mother Social History Tobacco Use Types Packs/Day Years Used Date Smoking Tobacco: Every Day Cigarettes Smokeless Tobacco: Never Tobacco Cessation:Ready to Q uit: Not Asked; Counseling Given: Not Answered Comments:Started tobacco smoking at 17 y of age ,1/2 PQT a day ,smoking for 31 years ,PQT tayler 15.5 Alcohol Use Standard Drinks/Week Comments Yes 0 (1 standard drink = 0.6 oz pur e alcohol) alcohol binging Housing Stability Answer Date Recorded What is your housing situation today? I have marlyn stanton 11/27/[address] you li ve. Do you have problems with any of the following? Pests such as bugs, ants, or mice 11/27/2023 Food Insecurity Answer Date Recorded Within the past 12 months, y ou worried that your food would run out before you got money to buy more: Never True 11/27/2023 Within the past 12 months,th e food you bought just didn't last and you didn't have enough money to get more: Never True 09/2024 Transportation Answer Date Recorded In the past 12 months, has l ack of transportation kept you from medical appts, meetings, work or from getting things needed for daily living? No 11/27/2023 Utilities Answer Date Recorded In the past 12 months, has t he electric, gas, oil or water company threatened to shut off services in your home? No 11/27/2023 Depression Answer Date Recorded Patient Health Questionnaire-2 Score 3 12/06/2023 Comments Unknown Sex and Gender Information Value Date Recorded Sex Assigned at Female 08/15/2022 10:15 AM EDT Legal Sex Female 10:15 AM EDT Gender Identity Female 08/15/2022 10:15 AM EDT Sexual Orientation Straight 08/15/2022 10 :15 AM EDT Last Filed Vital Signs Vital Sign Reading Time Taken Comments Blood Pressure 160/100 11/14/2024 1:26 PM EST Pulse 89 11/14/2024 1:02 PM EST Temperature 35.6 ??C (96 ??F) 11/14/2024 1:02 PM EST Respiratory Rate 20 11/14/2024 1:02 PM EST Oxygen Saturation 100% 11/14/2024 1:02 PM EST Inhaled Oxygen Concentration - - Weight 71 kg (156 lb 9.6 oz) 11/14/2024 1:02 PM EST Height 157.5 cm (5' 2 ) 11/14/2024 1:02 PM EST Body Mass Index 28.64 11/14/2024 1:02 PM EST Plan of Treatment Upcoming Encounters Date Type Department Care Team (Late st Contact Info) Description 12/18/2024 2:45 PM EST Office Visit [facility] [address] [place] [address] Sheyla Harris MD [address] [place], [place] [phone] Health Maintenance Due Date Last Done Comments CT Colonography 1977 Colonoscopy 1977 FIT 1977 FOBT 1977 Sigmoidoscopy 1977 Alcohol/Substance Use Screening 1989 Diabetes: Urine Protein Screening 1996 Hepatitis B Vaccines (2 of 3 - 19+ 3-dose series) 03/27/2024 02/28/2024 COVID-19 Vaccine ( season) 2024 12/09/2021, 12/09/2021, 06/18/2021, Additional history exists Hepatitis A Vaccines (2 of 2 - Risk 2-dose series) 08/30/2024 02/28/2024 SDOH Screening 11/27/2024 11/27/2023 Depression Screening 12/06/2024 12/06/2023, 12/06/19 Lipid Panel 01/18/2025 01/19/2024, 09/15, 04/05/2021 Diabetes: Foot Exam 02/27/2025 02/28/2024, 02/28/2024, 02/28/2024 Family Planning (PISQ) 02/27/2025 02/28/2024 Diabetes: Hemoglobin A1C 05/14/2025 025, 01/19/2024, 09/28/2021 Tobacco Screening 11/14/2025 11/14/2024 Mammogram 01/01/2026 01/02/2024, 04/15, 05/02/2022, Additional history exists Eye Exam 06/26/2026 06/26/2024, 06/16, 06/26/2024, Additional history exists Colorectal Cancer Screening 02/16/2027 FIT DNA/Cologuard 02/16/2027 02/17/2024 Zoster Vaccines (1 of 2) 2027 Cervical Cancer Screening 03/27/2029 HPV/Cotest 03/27/2029 03/27/2024, 03/18, 10/28/2016 Pap Smear 03/27/2029 03/27/2024, 03/18, 04/14/2022 DTaP/Tdap/Td Vaccines (6 - Td or Tdap) 12/06/2033 12/06/2023, 06/04/2012, 10/25/1994, Additional history exists RSV Patients and Patients Aged 60 years or older (1 - 1-dose 75+ series) 2052 IPV Vaccines Discontinued 05/16/1982, 1977 HIV Screening Completed 01/19/2024, 09/28/2021 Hepatitis C Screening Completed 01/19/2024 Pneumococcal Vaccine: Pediatrics (0 to 5 Years) and At-Risk Patients (6 to 49) Years) Completed 02/28/2024 Influenza Vaccine Completed 11/14/2024, , 08/12/2022, Additional history exists HIB Vaccines Aged Out No longer eligi ble based on patient's age to complete this topic HPV Vaccines Aged Out No longer eligi ble based on patient's age to complete this topic Meningococcal Vaccine Aged Out No ana paula nilesh eligible based on patient's age to complete this topic RSV under 20 months Aged Out No longe r eligible based on patient's age to complete this topic Rotavirus Vaccines Aged Out No longer eligible based on patient's age to complete this topic Procedures Procedure Name Priority Date/Time Associated Diagnosis Comments SLIDE REVIEW Routine 11/14/2024 1:49 PM EST Type 2 diabetes mellitus without complication, without long-term current use of insulin ([facility]) VITAMIN B12 Routine 11/14/2024 1:49 PM EST Iron deficiency anemia, unspecified iron deficiency anemia type CBC WITH AUTO DIFFERENTIAL Routine 11/14/2024 1:49 PM EST Iron deficiency anemia, unspecified iron deficiency anemia type HEMOGLOBIN A1C Routine 11/14/2024 1:49 PM EST Type 2 diabetes mellitus without complication, without long-term current use of insulin (CMS/HCC) HPV MRNA E6/E7 REFLEX TO HPV 16, 18/45 Routine 03/27/2024 11:35 AM EDT PAP SMEAR Routine 03/27/2024 11:35 AM EDT HM FIT DNA/COLOGUARD CANCER SCREENING Routine 02/17/2024 HEPATITIS C AB W/REFL TO HCV RNA, QN, PCR Routine 01/19/2024 11:50 AM EDT Annual physical exam HIV 1/2 ANTIGEN/ANTIBODY, FOURTH GENERATION W/RFL Routine 01/19/2024 11:50 AM EDT Annual physical exam LIPID PANEL, STANDARD Routine 01/19/2024 11:50 AM EDT Annual physical exam BI MAMMOGRAM SCREENING TOMOSYNTHESIS BILATERAL Routine 01/02/2024 1:52 PM EDT Breast cancer screening by mammogram from Last 3 Months or Most Recently Relevant to Health Maintenance Results * Slide Review (11/14/2024 1:49 PM EST) Slide Review VERIFIED [facility] 11/14/2024 1:49 PM EST 11/14/2024 3:58 PM EST us Sheyla Harris MD LAB BLOOD ORDERABLES Final Result [facility] [address] [place] [phone] * (ABNORMAL) CBC auto differential (11/14/2024 1:49 PM EST) White Blood Count 5.3 4.8 - 10.8 X10*3/uL [facility] Red Blood Count 4.31 4.20 - 5.50 X10*6/uL [facility] Hemoglobin 6.8(LL) 12.0 - 16.0 g/dl [facility] Comment:Results of HGB cook d to and read back by ESPINOZA Tesfaye 11/14/24 at 1627 by YOLY. Hematocrit 26.0(L) 37.0 - 47.0 % [facility] Mean Corpuscular Volume 60.3(L) 80.0 - 98.0 fL [facility] Mean Corpuscular Hemoglobin 15.8(L) 27.0 - 33.0 pg [facility] Mean Corpuscular HGB Conc 26.2(L) 31.0 - 35.0 g/dl [facility] Red Cell Distribution Width 21.1(H) 11.0 - 16.0 % [facility] Platelet Count 198 160 - 400 X10*3/uL [facility] Mean Platelet Volume TNP 9.4 - 12.3 fL [facility] Neutrophils Percent Auto 57.8 45 - 73 % [facility] Imm Gran Pct Auto 0.2 0.0 - 0.4 % [facility] Lymphocytes Percent Auto 29.3 20 - 40 % [facility] Monocytes Percent Auto 8.7 2 - 11 % [facility] Eosinophils Percent Auto 3.2 0 - 4 % [facility] Basophils Percent Auto 0.8 0 - 2 % [facility] NRBC Pct Auto 0.0 0.0 - 0.2 /100WBC [facility] Neutrophils Absolute Auto 3.1 2.0 - 8.3 x10*3/uL [facility] Imm Gran Abs Auto 0.01 0.00 - 0.03 X10*3/uL [facility] Lymphocytes Absolute Auto 1.6 1.2 - 4.9 X10*3/uL [facility] Monocytes Absolute Auto 0.5 0.1 - 1.2 X10*3/uL [facility] Eosinophils Absolute Auto 0.2 0.0 - 0.4 X10*3/uL [facility] Basophils Absolute Auto 0.0 0.0 - 0.2 X10*3/uL [facility] NRBC Abs Auto 0.000 0.0 - 0.012 X10*3/uL [facility] Blood Venous blood specimen / Unknown 11/14/2024 1:49 PM EST 11/14/2024 3:58 PM EST Sheyla aHrris MD LAB BLOOD ORDERABLES Edite d Result - Final Performing Organization Address [facility]/ZIP Co de Phone Number [facility] [address] [place] [phone] * (ABNORMAL) Hemoglobin A1c (11/14/2024 1:49 PM EST) Hemoglobin A1c 6.1(H) <6.0 % [facility] Comment:Hemoglobin A1C Refer ence Range Adults: 4.8 - 6.0 % Non diabetic: < 6.0 % Goal: < 7.0 %Additional Action Suggested: > 8.0 %Note: Hemoglobin A1c results are invalid for patients with abnormal amounts of HbF. Blood transfusions may impact the HbA1c concentration in the patient sample. Estimated Average Glucose 128 mg/dL [facility] Comment:eAG = Estimated ave rage glucose which is %A1C expressed asaverage glucose, using the formula of the C7J-EpsmokbYdcurut Glucose study (ADAG), Diabetes Care, Vol.31,#8,2007 Blood Venous blood specimen / Unknown 11/14/2024 1:49 PM EST 11/14/2024 3:58 PM EST Sheyla Harris MD LAB BLOOD ORDERABLES Final Result Performing Organization Address [facility]/ZIP Co de Phone Number [facility] [address] [place] [phone] * Vitamin B12 (11/14/2024 1:49 PM EST) Vitamin B12 422 200 - 900 pg/mL [facility] Comment:NORMAL 200-900 PG/ML INDETERMINATE 160-199 PG/ML DEFICIENT < 160 PG/ML Blood Venous blood specimen / Unknown 11/14/2024 1:49 PM EST 11/14/2024 3:58 PM EST us Sheyla Harris MD LAB BLOOD ORDERABLES Final Result [facility] [address] [place] [address] [phone] * HPV mRNA E6/E7 w/Reflex to HPV Genotypes 16, 18/45 (03/27/2024 11:35 AM EDT) Pathologist [facility] HPV nRNA E6/E7 Not Detected Not Detected [facility] Comment:Methodology: Transcr iption-Mediated AmplificationThis assay detects E6/E7 viral messenger RNA (mRNA) from 14high-risk HPV types (16,18,31,33,35,39,45,51,52,56,58,59,66,68).Cervical sources are required for HPV testing.If a vaginal source from a patient who has had atotal hysterectomy with removal of cervix wassubmitted, please contact the testing laboratoryfor alternative testing options.For additional information, please refer tohttp://education.Embue/faq/CHC742r0(This link if provided for information/educational purposes only.)THIS TEST WAS PERFORMED AT:[facility] [place] [phone] MELÉNDEZ MD HPV mRNA E6/E7 TNP [facility] HPV 16 RNA [facility] HPV 18/45 RNA [facility] 03/27/2024 11:3 5 AM EDT 03/28/2024 8:00 AM EDT us Generic External Data Provider LAB CYTOLOGY JESÚS CHADWICK Final Result [facility] [address] [place] [address] [phone] * Pap Smear (03/27/2024 11:35 AM EDT) 03/27/2024 11:3 5 AM EDT 03/28/2024 8:00 AM EDT Michael [facility] - 04/14/2024 3:51 PM EDT ----- ------- Name: Siobhan Armijo ? Age/Sex: 48/F ? : 1975 Unit#: [id number] ?? Attend Dr: Madison Epstein CNM ?Re03/27/24 ?Status: DEP REF ? Location: HO.LNP ?Disch: ? ----- ------- SPEC : [id number] ?RECD: 03/28/24-799 ? STATUS: ??SOUT ? REQ NUM: [id number] ? KAVITA: 03/27/24-5 ? SUBM DR: Madison Epstein CNM ? ENTERED: ??03/28/24-905 ?SP TYPE: Pap Smr ?OTHR DR: Angelia Magdaleno MD ORDERED: ??Pap Smear ? Interpretation ?? Satisfactory for evaluation. ?? Negative for intraepithelial lesion or malignancy. ? HPV mRNA E6/E7: ?NOT DETECTED ? This assay detects E6/E7 viral messenger RNA (mRNA) from 14 high-risk HPV types (16, 18, ?? 31, 33, 35, 39, 45, 51, 52, 56, 58, 59, 66, 68) ? HPV testing performed by [facility], [place], [place]. ??See reference laboratory ?? portion of the EMR for entire report. ?Clinical Information LMP: 02/28/24 Previous PAP test: WN Clinical history: Abnormal uterine and vaginal bleeding. ? Material Received ?? ThinPrep-Cervical Copies To: ?? Madison Epstein CNM ?? [facility] ?? [address] ?? [place] [address] ?? [phone] ?? Angelia Magdaleno MD ?? [address] ?? [place] [address] ?? [phone] ----- ------- Signed (signature on file) Alexus Gordon 04/14/24 1551 ? ----- ------- ? END OF REPORT ? Generic External Data Provider LAB CYTOLOGY JESÚS CHADWICK Final Result [facility] [address] [place] [phone] * FIT DNA/Cologuard Cancer Screening (02/17/2024) Pathologist [facility] Cologuard Cancer Screen Negative Stool Historical Provider HEALTH MAINTENANCE Final Result * Hepatitis C Antibody with Reflex to HCV, RNA, Quantitative, Real-Time PCR (01/19/2024 11:50 AM EDT) Pathologist [facility] Hepatitis C Antibody Nonreactive Nonreactive [facility] Comment:Antibodies to HCV no t detected; does not exclude early acuteHCV infection. Blood Venous blood specimen / Unknown 01/19/2024 11:50 AM EDT 01/19/2024 1:11 PM EDT Angelia Minor MD LAB BLOOD ORDERAB LES Final Result Performing Organization Address [facility]/ZIP Co de Phone Number [facility] [address] [place] [phone] * HIV-1/2 Antigen and Antibodies, Fourth Generation, with Reflexes (01/19/2024 11:50 AM EDT) HIV AB/AG Nonreactive Nonreactive [facility] Comment:HIV-1 p24 Ag and/or HIV-1/HIV-2 Ab not detected.A test result that is nonreactive does not exclude thepossibility of exposure to or infection with HIV-1 and/orHIV-2. Nonreactive results in this assay for individualswith prior exposure to HIV-1 and/or HIV-2 may be due toantigen and antibody levels that are below the limit ofdetection of this assay.The SilMach HIV Ag/Ab Combo assay result andsupplemental assay results should be interpreted inconjunction with the patient's clinical presentation,history and other laboratory results. If the results areinconsistent with clinical evidence, additional testing issuggested to confirm the result. Blood Venous blood specimen / Unknown 01/19/2024 11:50 AM EDT 01/19/2024 1:11 PM EDT us Angelia Minor MD LAB BLOOD ORDERAB LES Final Result Performing Organization Address [facility]/ZIP Co de Phone Number [facility] [address] [place] [address] [phone] * (ABNORMAL) Lipid Panel, Standard (01/19/2024 11:50 AM EDT) Triglycerides 224(H) <150 mg/dL [facility] Comment:Desirable Triglyceri de: less than 150 mg/dLBorderline High Triglyceride 150-199 mg/dLHigh Triglyceride: 200-499 mg/dLVery High Triglyceride: greater than or equal to 5OO mg/dL Cholesterol 216(H) <200 mg/dL [facility] Comment:Desirable Cholestero l: less than 200 mg/dLBorderline High Cholesterol: 200-239 mg/dLHigh Cholesterol: greater than 239 mg/dL LDL Cholesterol Calculated 129(H) <100 mg/dL [facility] Comment:Desirable LDL: less than 100 mg/dLNear Optimal/Above Optimal LDL: 110- 129 mg/dLBorderline High LDL: 130-159 mg/dLHigh LDL: 160-189 mg/dLVery High LDL: greater than or equal to 190 mg/dL HDL Cholesterol 43 >40 mg/dL [facility] Comment:Desirable HDL: great er than 40 mg/dL Note: This HDL assay may give artificially low results in patients with liver disease. Blood Venous blood specimen / Unknown 01/19/2024 11:50 AM EDT 01/19/2024 1:11 PM EDT Angelia Minor MD LAB BLOOD ORDERAB LES Final Result Performing Organization Address City/State/[facility] Co de Phone Number [facility] [address] [place] [address] [phone] * BI Mammogram Screening Tomosynthesis Bilateral (01/02/2024 1:52 PM EDT) Anatomical Region Laterality Modality Breast Bilateral Mammography 01/02/2024 1:52 PM EDT Narrative 01/24/2024 12:23 AM EDT ? [facility] ? [address] ?[place] [address] ? Mammography Report ? Signed ? Patient: Armijo,Siobhan ?MR#: [id number] ?? 98 ? : 1975 ?Acct:[id number] ? Age/Sex: 48 / F ?ADM Date: 03/19/24 ? Loc: HO.MAMMO ? Attending Dr: Sheyla Harris MD ? Ordering Physician: Angelia Magdaleno MD ?Re ?? sults: 1Negative ? Date of Service: 01/02/24 ?Follow Up: 1 Year From Orig ?? inal Mammogram ? Procedure(s): MM tomosynthesis screening BI ?? Accession Number(s): [id number] ? cc: Sheyla Harris MD; Angelia Magdaleno MD ? EXAMINATION: ?? MM SCREENING DIGITAL BREAST TOMOSYNTHESIS, BILATERAL ? CLINICAL INFORMATION: ? Screening. Asymptomatic. ? COMPARISON: ?? Mammography: This study is compared with prior exams dating back to ?? 2021. ? TECHNIQUE: ?? Digital breast tomosynthesis is performed in both the craniocaudal and ?? mediolateral oblique views along with computer-aided detection (CAD). ?? Synthesized 2D images are generated from the tomosynthesis. ? FINDINGS: ?? There are scattered areas of fibroglandular density (ACR BI-RADS breast ?? composition Category b). ? There are no significant masses, abnormal calcifications, or other ?? abnormalities. ? MM/MM tomosynthesis screening BI ?? IMPRESSION: ?? No mammographic evidence of malignancy. ? ASSESSMENT: ? BI-RADS BI-RADS 1 - Negative ? RECOMMENDATION: ?? Routine annual mammography screening. ? 1 year F/U ? This examination should not preclude the clinical evaluation of a ?? suspicious palpable abnormality. ? This patient's information was entered into a reminder system with a ?? target due date for their next mammogram. ? Dictated By: ?Yoana Bruno MD ? Signed By: ?<Electronically signed by Yoana Bruno MD in OV> ? /08/089 ? DD/ ? TD/TT: ? Business Services Manager: ? Procedure Note Donotuseinterpreter, Image - 01/24/2024 [facility] [address] [place] [address] Mammography Report Signed Patient: Siobhan ArmijoMR#: [id number] 98 : 1975Acct:[id number] Age/Sex: 48 / FADM Date: 01/02/24 Loc: HO.MAMMO Attending Dr: Sheyla Harris MD Ordering Physician: Angelia Magdaleno sults: 1Negative Date of Service: 01/02/24Follow Up: 1 Year From Orig inal Mammogram Procedure(s): MM tomosynthesis screening BI Accession Number(s): [id number] cc: Sheyla Harris MD; Angelia Magdaleno MD EXAMINATION: MM SCREENING DIGITAL BREAST TOMOSYNTHESIS, BILATERAL CLINICAL INFORMATION: Screening. Asymptomatic. COMPARISON: Mammography: This study is compared with prior exams dating back to 2021. TECHNIQUE: Digital breast tomosynthesis is performed in both the craniocaudal and mediolateral oblique views along with computer-aided detection (CAD). Synthesized 2D images are generated from the tomosynthesis. FINDINGS: There are scattered areas of fibroglandular density (ACR BI-RADS breast composition Category b). There are no significant masses, abnormal calcifications, or other abnormalities. MM/MM tomosynthesis screening BI IMPRESSION: No mammographic evidence of malignancy. ASSESSMENT: BI-RADS BI-RADS 1 - Negative RECOMMENDATION: Routine annual mammography screening. 1 year F/U This examination should not preclude the clinical evaluation of a suspicious palpable abnormality. This patient's information was entered into a reminder system with a target due date for their next mammogram. Dictated By: Yoana Bruno MD Signed By: <Electronically signed by Yoana Bruno MD in OV> 01/24/24 0019 DD/ 1352 TD/TT: Business Services Manager: us Angelia Minor MD IMG BI PROCEDURES Final Result from Last 3 Months or Most Recently Relevant to Health Maintenance Insurance [facility] C3 HSN PARTIAL Care Teams Science And Operations Officer Relationship Specialty Start Date End Date Ziebach, MD Sheyla [address] [place] [address] PCP - General Family Medicine 10/16/18 Madison Epstein [address] [place] [address] Gynecology 10/30/24 Meka García OD [address] [place] [phone] Optometry 10/30/24
--- OUTSIDE RECORDS SUMMARY | 2024-11-14 17:37 | XMS_ITS | Encounter Summary ---
Author Organization [facility] Address [address] [place] [address] Phone Care Team Providers Care Radiation Therapy Technician Name Role Phone Sheyla Harris MD Primary Care Provider U keya Encounter Details Date Type Department Care Team (Late st Contact Info) Description 09/01/2022 Documentation Only [facility] [address] [place] [address] Azra Coreas Social History Tobacco Use Types Packs/Day Years Used Date Smoking Tobacco: Never Assessed Comments Unknown Sex and Gender Information Value Date Recorded Sex Assigned at Not on file Legal Sex Female 10:33 AM EDT Gender Identity Not on file Sexual Orientation Not on file documented as of this encounter Plan of Treatment Not on file documented as of this encounter Visit Diagnoses Not on filedocumented in this encounter Care Teams Radiation Therapy Technician Relationship Specialty Start Date End Date Sheyla Harris MD PCP - General Family Medicine 04/19/22 documented as of this encounter
--- OUTSIDE RECORDS SUMMARY | 2024-11-14 17:37 | XMS_ITS | Encounter Summary ---
Author Organization [employer] Address [address] [place] [address] [address] [place] [address] Care Team Providers Care Casino Runner Name Role Phone Sheyla Harris MD Primary Care Provider [phone] EpsteinShellia Unavailable Meka García OD Unavailable [phone] Encounter Details Date Type Department Care Team ([facility] Contact Info) Description 11/22/2022 Abstract [facility] [address] [place] [phone] Sheyla Harris MD [address] [place] [address] [phone] Social History Tobacco Use Types Packs/Day Years Used Date Smoking Tobacco: Every Day Cigarettes Smokeless Tobacco: Never Comments Unknown Sex and Gender Information Value Date Recorded Sex Assigned at Female 08/15/2022 10:15 AM EDT Legal Sex Female 10:15 AM EDT Gender Identity Female 08/15/2022 10:15 AM EDT Sexual Orientation Straight 08/15/2022 10 :15 AM EDT COVID-19 Exposure Response Date Recorded In the last 10 days, have yo u been in contact with someone who was confirmed or suspected to have Coronavirus/COVID-19? No / Unsure 10/28/2022 3:17 PM EST documented as of this encounter Plan of Treatment Upcoming Encounters Date Type Department Care Team ([facility] Contact Info) Description 12/18/2024 2:45 PM EST Office Visit [facility] [address] [place] [address] [phone] Sheyla Harris MD [address] [place] [address] documented as of this encounter Procedures Procedure Name Priority Date/Time Associated Diagnosis Comments MAMMOGRAPHY Routine 05/02/2022 PAP SMEAR Routine 04/14/2022 12:00 AM EDT documented in this encounter Results * Mammography (05/02/2022) Mammogram normal Anatomical Region Laterality Modality Other Historical Provider HEALTH MAINTENANCE Final Result * Pap Smear (04/14/2022 12:00 AM EDT) Swab Historical Provider LAB CYTOLOGY ORDERABLES F inal Result IMAGING documented in this encounter Visit Diagnoses Not on filedocumented in this encounter Care Teams Casino Runner Relationship Specialty Start Date End Date Sheyla Harris MD [address] [place] [address] PCP - General Family Medicine 10/16/18 Madison [place] [address] [address] Gynecology 10/30/24 Meka García OD [address] [place] [phone] Optometry 10/30/24 documented as of this encounter
--- OUTSIDE RECORDS SUMMARY | 2024-11-14 17:37 | XMS_ITS | Encounter Summary ---
Author Organization [employer] Address [address] [facility] 7t [place] [address] Care Team Providers Care Photonics Engineering Technician Name Role Phone Sheyla Harris MD Primary Care Provider [phone] Madison Epstein Unavailable Meka García OD Unavailable [phone] Encounter Details Date Type Department Care Team (Late st Contact Info) Description 11/14/2024 Orders Only [facility] [address] [place] [address] Sheyla Harris MD [address] [place] [address] Type 2 diabetes mellitus without complication, without long-term current use of insulin ([facility]) (Primary Dx); Iron deficiency anemia, unspecified iron deficiency anemia type Social History Tobacco Use Types Packs/Day Years Used Date Smoking Tobacco: Every Day Cigarettes Smokeless Tobacco: Never Comments:Started tobacco smo karrie at 17 y of age ,1/2 PQT [...] Orientation Straight 08/15/2022 10 :15 AM EDT documented as of this encounter Plan of Treatment Upcoming Encounters Date Type Department Care Team (Late st Contact Info) Description 12/18/2024 2:45 PM EST Office Visit [facility] [address] [place] [address] Sheyla Harris MD [address] [place] [address] Scheduled Orders Name Type Priority Associated Diagnoses Orde r Schedule Albumin, Random Urine W/Creatinine Lab Routine Type 2 diabetes mellitus without complication, without long-term current use of insulin ([facility]) Expected: 11/14/2024 (Approximate), Expires: 11/14/2025 Hepatic Function Panel Lab Routine Type 2 diabetes mellitus without complication, without long-term current use of insulin ([facility]) Expected: 11/14/2024 (Approximate), Expires: 11/14/2025 Lipid Panel, Standard Lab Routine Type 2 diabetes mellitus without complication, without long-term current use of insulin ([facility]) Expected: 11/14/2024 (Approximate), Expires: 11/14/2025 Basic Metabolic Panel Lab Routine Type 2 diabetes mellitus without complication, without long-term current use of insulin ([facility]) Expected: 11/14/2024 (Approximate), Expires: 11/14/2025 Ferritin Lab Routine Iron deficiency anemia, unspecified iron deficiency anemia type Expected: 11/14/2024, Expires: 11/14/2025 Iron And Total Iron Binding Capacity Lab Routine Iron deficiency anemia, unspecified iron deficiency anemia type Expected: 11/14/2024, Expires: 11/14/2025 TSH with Reflex to Free T4 Lab Routine Iron deficiency anemia, unspecified iron deficiency anemia type Expected: 11/14/2024, Expires: 11/14/2025 documented as of this encounter Procedures Procedure Name Priority Date/Time Associated Diagnosis Comments SLIDE REVIEW Routine 11/14/2024 1:49 PM EST Type 2 diabetes mellitus without complication, without long-term current use of insulin ([facility]) CBC WITH AUTO DIFFERENTIAL Routine 11/14/2024 1:49 PM EST Iron deficiency anemia, unspecified iron deficiency anemia type HEMOGLOBIN A1C Routine 11/14/2024 1:49 PM EST Type 2 diabetes mellitus without complication, without long-term current use of insulin ([facility]) VITAMIN B12 Routine 11/14/2024 1:49 PM EST Iron deficiency anemia, unspecified iron deficiency anemia type documented in this encounter Results * Slide Review (11/14/2024 1:49 PM EST) Slide Review VERIFIED [facility] 11/14/2024 1:49 PM EST 11/14/2024 3:58 PM EST Sheyla Harris MD LAB BLOOD ORDERABLES Final Result [facility] [address] [place] [address] [phone] * Vitamin B12 (11/14/2024 1:49 PM EST) Vitamin B12 422 200 - 900 pg/mL [facility] Comment:NORMAL 200-900 PG/ML INDETERMINATE 160-199 PG/ML DEFICIENT < 160 PG/ML Blood Venous blood specimen / Unknown 11/14/2024 1:49 PM EST 11/14/2024 3:58 PM EST us Sheyla Harris MD LAB BLOOD ORDERABLES Final Result [facility] [address] [place] [phone] [phone] * (ABNORMAL) CBC auto differential (11/14/2024 1:49 PM EST) White Blood Count 5.3 4.8 - 10.8 X10*3/uL [facility] Red Blood Count 4.31 4.20 - 5.50 X10*6/uL [facility] Hemoglobin 6.8(LL) 12.0 - 16.0 g/dl [facility] Comment:Results of HGB cook d to and read back by ESPINOZA Tesfaye 11/14/24 at 1627 by YOLY. Hematocrit 26.0(L) 37.0 - 47.0 % [facility] Mean Corpuscular Volume 60.3(L) 80.0 - 98.0 fL [facility] Mean Corpuscular Hemoglobin 15.8(L) 27.0 - 33.0 pg [facility] Mean Corpuscular HGB Conc 26.2(L) 31.0 - 35.0 g/dl [facility] Red Cell Distribution Width 21.1(H) 11.0 - 16.0 % [facility] Platelet Count 198 160 - 400 X10*3/uL [facility] Mean Platelet Volume TNP 9.4 - 12.3 fL [facility] Neutrophils Percent Auto 57.8 45 - 73 % [facility] Imm Gran Pct Auto 0.2 0.0 - 0.4 % [facility] Lymphocytes Percent Auto 29.3 20 - 40 % [facility] Monocytes Percent Auto 8.7 2 - 11 % [facility] Eosinophils Percent Auto 3.2 0 - 4 % [facility] Basophils Percent Auto 0.8 0 - 2 % [facility] NRBC Pct Auto 0.0 0.0 - 0.2 /100WBC [facility] Neutrophils Absolute Auto 3.1 2.0 - 8.3 x10*3/uL [facility] Imm Gran Abs Auto 0.01 0.00 - 0.03 X10*3/uL [facility] Lymphocytes Absolute Auto 1.6 1.2 - 4.9 X10*3/uL [facility] Monocytes Absolute Auto 0.5 0.1 - 1.2 X10*3/uL [facility] Eosinophils Absolute Auto 0.2 0.0 - 0.4 X10*3/uL [facility] Basophils Absolute Auto 0.0 0.0 - 0.2 X10*3/uL [facility] NRBC Abs Auto 0.000 0.0 - 0.012 X10*3/uL [facility] Blood Venous blood specimen / Unknown 11/14/2024 1:49 PM EST 11/14/2024 3:58 PM EST Sheyla Harris MD LAB BLOOD ORDERABLES Edite d Result - Final [facility] [address] [place] [phone] * (ABNORMAL) Hemoglobin A1c (11/14/2024 1:49 PM EST) Hemoglobin A1c 6.1(H) <6.0 % [facility] Comment:Hemoglobin A1C Refer ence Range Adults: 4.8 - 6.0 % Non diabetic: < 6.0 % Goal: < 7.0 %Additional Action Suggested: > 8.0 %Note: Hemoglobin A1c results are invalid for patients with abnormal amounts of HbF. Blood transfusions may impact the HbA1c concentration in the patient sample. Estimated Average Glucose 128 mg/dL [facility] Comment:eAG = Estimated ave rage glucose which is %A1C expressed asaverage glucose, using the formula of the [id number]-[id number] Glucose study (ADAG), Diabetes Care, Vol.31,#8,May. 2007 Blood Venous blood specimen / Unknown 11/14/2024 1:49 PM EST 11/14/2024 3:58 PM EST us Sheyla Harris MD LAB BLOOD ORDERABLES Final Result [facility] [address] [place] [phone] [phone] documented in this encounter Visit Diagnoses Diagnosis Type 2 diabetes mellitus without complication, without long-term current use of insulin ([facility])- Primary Iron deficiency anemia, unspecified iron deficiency anemia type Dietary counseling Dietary surveillance and counseling Exercise counseling Class 1 obesity due to excess calories with serious comorbidity and body mass index (BMI) of 31.0 to 31.9 in adult Type 2 diabetes mellitus without complication, without long-term current use of insulin ([facility]) documented in this encounter Care Teams Photonics Engineering Technician Relationship Specialty Start Date End Date Sheyla Harris MD [address] [place] [address] PCP - General Family Medicine 10/16/18 Madison Epstein [address] [place] [phone] Gynecology 10/30/24 Meka García OD [address] [place] [phone] Optometry 10/30/24 documented as of this encounter
--- OUTSIDE RECORDS SUMMARY | 2024-11-14 17:37 | XMS_ITS | Encounter Summary ---
Author Organization [facility] Address [address] [facility] [address] [place] [address] Phone Care Team Providers Care Health Plan Specialist Name Role Phone Sheyla Harris MD Primary Care Provider U navailable Reason for Visit * Reason Comments Med Refill Encounter Details Date Type Department Care Team (Late st Contact Info) Description 11/12/2024 Refill [facility] [address] [facility] [address] [place] [address] Jeff Carroll MD [address] [facility] [address] [place] [address] Social History Tobacco Use Types Packs/Day Years [...] on filedocumented in this encounter Care Teams Health Plan Specialist Relationship Specialty Start Date End Date Sheyla Harris MD PCP - General Family Medicine 04/19/22 documented as of this encounter
--- OUTSIDE RECORDS SUMMARY | 2024-11-14 17:37 | XMS_ITS | Encounter Summary ---
Author Organization [employer] Address 75 [facility] 7t [place] [address] Care Team Providers Care Filling And Stapling Machine Operator Name Role Phone Sheyla Harris MD Primary Care Provider [phone] Madison Epstein Unavailable Ricky Meka OD Unavailable Encounter Details Date Type Department Care Team ([facility] st Contact Info) Description 11/14/2024 1:00 PM EST Office Visit [facility] [address] [place] [address] Dolores Hodges, ANP [address] [place], [place] [phone] Essential (primary) hypertension (Primary Dx); Smoking; Encounter for immunization Social History Tobacco Use Types Packs/Day Years [...] AM EDT documented as of this encounter Last Filed Vital Signs Vital Sign Reading [...] Mass Index 28.64 11/14/2024 1:02 PM EST documented in this encounter Progress Notes * ORQUIDEA Ragland - 11/14/2024 1:00 PM EST Subjective Patient ID: Siobhan Armijo is a 49 y.o. female who presents for hypertension sick visit. HPI PMHx hypertension, tobacco dependence, alcohol consumption binge, anemia, and dyslipidemia Patient of Dr. Harris here for blood pressure sick visit. Elevated home BP. BP at last PCP visit February 2025 130/76. Reports that on 20mg lisinopril, BP has been very good. Original prescription was for 20 mg tablet 1.5 tablet daily. She reports that she nevertook the extra 0.5 tablet. has been out of med 2d. Rx'd previously by nephrology. Has labs to get pending - ordered but not yet drawn. Had elevated potassium in January last year 5.3 and has not yet had repeat done. 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 Very stressful. Smoking more asa result. 10 cigs/d. Up from 5 cigs/d. Had bad dreams with Chantix but would like to re-trial nicotine gum. Review of Systems Constitutional: Negative for chills and fever. HENT: Negative for sore throat. Eyes: Negative for pain and visual disturbance. Respiratory: Negative for cough and shortness of breath. Cardiovascular: Negative for chest pain. Gastrointestinal: Negative for constipation and diarrhea. Endocrine: Negative for polydipsia, polyphagia and polyuria. Genitourinary: Negative for dysuria. Neurological: Negative for weakness and headaches. Objective BP (!) 160/100 (BP Location: Right arm, Patient Position: Sitting, BP Cuff Size: Large adult) Pulse 89 Temp 96 ??F (35.6 ??C) (Temporal) Resp 20 Ht 5' 2 (1.575 m) Wt 156 lb 9.6 oz (71 kg) SpO2 100% BMI 28.64 kg/m?? Physical Exam Vitals reviewed. Constitutional: General: She is not in acute distress. Appearance: Normal appearance. She is not ill-appearing. HENT: Head: Normocephalic and atraumatic. Eyes: General: No scleral icterus. Extraocular Movements: Extraocular movements intact. Pupils: Pupils are equal, round, and reactive to light. Cardiovascular: Rate and Rhythm: Normal rate and regular rhythm. Pulmonary: Effort: Pulmonary effort is normal. No accessory muscle usage or respiratory distress. Neurological: Mental Status: She is alert and oriented to person, place, and time. Psychiatric: Mood and Affect: Mood normal. Behavior: Behavior normal. Assessment/Plan Diagnoses and all orders for this visit: Essential (primary) hypertension Mildly improved on repeat but remains elevated. Goal </= 130/80. she is asymptomatic today in regards to chest pain, shortness of breath, headache, vision changes. Re-start lisinopril 20mg daily She will get labs now and if potassium elevated we will switch to amlodipine 5mg daily. Reviewed risks of hyperkalemia and reasoning for labs needed before taking med. RN visit for BP check/log review early next week. Follow-up with PCP as scheduled. - lisinopril (Prinivil) 20 MG tablet; Take 1 tablet (20 mg) by mouth Once per day. Smoking Smoking cessation discussion > 3min. declines patches, will send NRT gum. Smokin/2 PPD Affirmed desire to quit. Encouraged exercise, sugarfree gum, healthy coping. Pick quit date. Reviewed instructions for NRT gum/lozenges/patches. - nicotine polacrilex (Nicorette) 2 MG gum; Chew and park 1 gum every 1-2 hours [address] needed in place of cigarette Encounter for immunization - FLU VACCINE TRIVALENT (Fluarix) 6 mo + documented in this encounter Plan of Treatment Upcoming Encounters Date Type Department Care Team (Late st Contact Info) Description 12/18/2024 2:45 PM EST Office Visit [facility] [address] [place] [address] Sheyla Harris MD [address] [place] [address] documented as of this encounter Visit Diagnoses Diagnosis Essential (primary) hypertension- Primary Unspecified essential hypertension Smoking Tobacco use disorder Encounter for immunization Dietary counseling Dietary surveillance and counseling Exercise counseling Class 1 obesity due to excess calories with serious comorbidity and body mass index (BMI) of 31.0 to 31.9 in adult Type 2 diabetes mellitus without complication, without long-term current use of insulin ([facility]) documented in this encounter Care Teams Filling And Stapling Machine Operator Relationship Specialty Start Date End Date Sheyla Harris MD [address] [place] [address] PCP - General Family Medicine 10/16/18 Madison Epstein [address] [place] [address] Gynecology 10/30/24 Meka García OD [address] [place] [address] [phone] Optometry 10/30/24 documented as of this encounter
--- OUTSIDE RECORDS SUMMARY | 2024-11-14 17:37 | XMS_ITS | Encounter Summary ---
Author Organization [employer] Address 75 [facility] 7t [place] [address] Care Team Providers Care Quick Mixer Operator Name Role Phone Sheyla Harris MD Primary Care Provider [phone] Reason for Visit * Reason Onset Date Comments December Recall 10/25/2024 Encounter Details Date Type Department Care Team ([facility] Contact Info) Description 10/25/2024 Telephone [facility] [address] [place], [place] [phone] Angela Banuelos [place] December Recall Social History Tobacco Use Types Packs/Day Years [...] AM EDT documented as of this encounter Miscellaneous Notes * Telephone Encounter - Angela Banuelos [place] - 10/25/2024 1:19 PM EST Pt agreed to schedule PE on 12/18/24 @ 2:45 pm. Reminder letter mailed. documented in this encounter Plan of Treatment Upcoming Encounters Date Type Department Care Team (Late st Contact Info) Description 12/18/2024 2:45 PM EST Office Visit [facility] [address] [place] [address] Sheyla Harris MD [address] [place] [address] documented as of this encounter Visit Diagnoses Not on filedocumented in this encounter Care Teams Quick Mixer Operator Relationship Specialty Start Date End Date Sheyla Harris MD [address] [place] [address] PCP - General Family Medicine 10/16/18 documented as of this encounter
--- OUTSIDE RECORDS SUMMARY | 2024-11-14 17:37 | XMS_ITS | Encounter Summary ---
Author Organization [employer] Address 75 [facility] 7t [place] [address] Care Team Providers Care Hospice Office Coordinator Name Role Phone Sheyla Harris MD Primary Care Provider [phone] Madison Epstein Unavailable Meka García LEI Unavailable [phone] Encounter Details Date Type Department Care Team (Latest Contact Info) Description 11/14/2024 Travel Social History Tobacco Use Types Packs/Day Years [...] Description 12/18/2024 2:45 PM EST Office Visit [facility] [address] [place] [address] Sheyla Harris MD [address] [place] [address] documented as of this encounter Visit Diagnoses Not on filedocumented in this encounter Care Teams Hospice Office Coordinator Relationship Specialty Start Date End Date Sheyla Harris MD [address] [place] [address] PCP - General Family Medicine 10/16/18 Madison Epstein [address] [address] Gynecology 10/30/24 Meka García OD [address] [place] [phone] Optometry 10/30/24 documented as of this encounter
--- OUTSIDE RECORDS SUMMARY | 2024-11-14 17:37 | XMS_ITS | Encounter Summary ---
Author Organization [employer] Address 75 [facility] 7t [place] [address] Care Team Providers Care Metal Tank Erector Name Role Phone Sheyla Harris MD Primary Care Provider [phone] Madison Epstein Unavailable Meka García OD Unavailable [phone] Reason for Visit * Reason Onset Date Comments Med Refill 11/12/2024 Encounter Details Date Type Department Care Team ([facility] st Contact Info) Description 11/12/2024 Telephone [facility] [address] [place] [address] Sheyla Harris MD [address] [place], [place] [phone] Med Refill Social History Tobacco Use Types Packs/Day Years [...] encounter Miscellaneous Notes * Telephone Encounter - Selina Franklin RN - 11/14/2024 9:47 AM EST Spoke to PCP in office who stated that she will prescribe BP medications for the patient but the ptneeds labwork to be completed in order to inform which BP meds. She stated that the pt needs a provider appt as well. Called pt to status check. Pt reports being in bed still, states she is feeling better than yesterday. Denies dizziness, chest pain, headache, shortness of breath, states she still has some nausea. Pt took BP while on the phone, BP was 162/92. Advised pt that PCP is willing to prescribe BP meds however labs need to be completed prior to inform which med. Wind Plant Manager advised for pt to come in today forvisit and to get labs done per PCP request, pt declined and said she was really tired. Strongly advised pt that it was important that she be seen to obtain this medication and be evaluated for her recent symptoms, offered multiple sick on sites and Walk in Clinic. Pt stated she was okay to see Dolores Hodges NP at 1pm today. Advised pt in the interim to go to ED if develops chest pain or shortness of breath. Pt verbalized understanding, to call clinic PRN before appt. * Telephone Encounter - Selina Franklin RN - 11/13/2024 1:35 PM EST Telephone call to pt, advised that lisinopril is prescribed by pipe connector below. Pt stated I only went to him once, I took the last pill yesterday. She stated she prefers this med to be prescribed by PCP since I see her more. Pt reports that since she was out of the med today, she broke in half my mom's 40mg lisinopril pill and took this today. Since then, pt is reporting stomach upset, dizziness, and feeling a little out of breath. Pt conversing with ease on the phone. Denies chest pain or other symptoms. Wind Plant Manager strongly advised pt to go to ED immediately due to concern for hypertension symptoms and possible intake of incorrect medication/dose, no available appt times and per heavy equipment sales manager, unable to direct book in walk in clinic. Pt stated she preferred to go home, check her BP, andthen go to the ED if BP was high. Pt stated she is in [place] dropping her daughter off with a friend driving, account underwriter asked recommended go to ED now due to symptoms, pt stated not really, no because of long wait times and reported anxiety while waiting for doctors. Asked pt if she would be willing to come to [facility] walk in clinic (gave extended hours), pt stated she would come after dropping off her daughter. Will task to status check tomorrow and send PCP message regarding need for lisinopril refill. Jeff Carroll MD at [facility]: * Telephone Encounter - Chet Allen - 11/13/2024 12:45 PM EST TC from pt stating that she needs the Refill But she doesn't Remember who that doctor is. Contact pt at [phone] for more information. * Telephone Encounter - Azra Angel LPN - 11/12/2024 10:31 AM EST Medication is prescribed by Jeff Carroll. * Telephone Encounter - Silvia Steven - 11/12/2024 9:49 AM EST TC from pt requesting medication refill. Medications needing refill : lisinopril 20 MG tablet To be sent to: [id number]/pharmacy #[id number] documented in this encounter Plan of Treatment Upcoming Encounters Date Type Department Care Team (Late st Contact Info) Description 12/18/2024 2:45 PM EST Office Visit [facility] [address] [place] [address] Sheyla Harris MD [address] [place] [address] documented as of this encounter Visit Diagnoses Not on filedocumented in this encounter Care Teams Metal Tank Erector Relationship Specialty Start Date End Date Sheyla Harris MD [address] [place] [address] PCP - General Family Medicine 10/16/18 Madison Epstein [address] [address] Gynecology 10/30/24 Meka García OD [address] [place] [phone] Optometry 10/30/24 documented as of this encounter
--- OUTSIDE RECORDS SUMMARY | 2024-11-14 17:37 | XMS_ITS | Encounter Summary ---
Author Organization [employer] Address [address] [place] [address] 7 [place] [address] Care Team Providers Care Student Services Dean Name Role Phone Sheyla Harris MD Primary Care Provider [phone] Madison Epstein Unavailable Meka García OD Unavailable [phone] Reason for Visit * Reason Comments Med Refill Encounter Details Date Type Department Care Team (Late Contact Info) Description 05/30/2023 Refill [facility] [address] [place] [phone] Ayesha Shannon MD [address] [place] [address] Gastroesophageal reflux disease, unspecified whether esophagitis present Social History Tobacco Use Types Packs/Day Years [...] Encounters Date Type Department Care Team (Late Contact Info) Description 12/18/2024 2:45 PM EST Office Visit [facility] [address] [place] [address] Sheyla Harris MD [address] [place] [address] documented as of this encounter Visit Diagnoses Diagnosis Gastroesophageal reflux disease, unspecified whether esophagitis present Dietary counseling Dietary surveillance and counseling Exercise counseling Class 1 obesity due to excess calories with serious comorbidity and body mass index (BMI) of 31.0 to 31.9 in adult Type 2 diabetes mellitus without complication, without long-term current use of insulin ([facility]) documented in this encounter Care Teams Student Services Dean Relationship Specialty Start Date End Date Sheyla Harris MD [address] [place] [address] PCP - General Family Medicine 10/16/18 Madison Epstein [address] [address] Gynecology 10/30/24 Meka García OD [address] [place] [phone] Optometry 10/30/24 documented as of this encounter
--- OUTSIDE RECORDS SUMMARY | 2024-11-14 17:37 | XMS_ITS | Encounter Summary ---
Author Organization [employer] Address [address] [facility] 7t [place] [address] Care Team Providers Care Drop Man Name Role Phone Sheyla Harris MD Primary Care Provider +1- [phone] Madison Epstein Unavailable Meka García OD Unavailable Reason for Visit * Reason Comments Med Refill Encounter Details Date Type Department Care Team ([facility] st Contact Info) Description 09/24/2024 Refill [facility] [address] [place] [address] Sheyla Harris MD [address] [place] [address] Social History Tobacco Use Types Packs/Day Years [...] Description 12/18/2024 2:45 PM EST Office Visit [facility] 230 [place] [address] Sheyla Harris MD [address] [place] [address] documented as of this encounter Visit Diagnoses Not on filedocumented in this encounter Care Teams Drop Man Relationship Specialty Start Date End Date Sheyla Harris MD [address] [place] [address] PCP - General Family Medicine 10/16/18 Madison Epstein [address] [place] [address] Gynecology 10/30/24 Meka García OD [address] [place] [address] Optometry 10/30/24 documented as of this encounter
--- OUTSIDE RECORDS SUMMARY | 2024-11-14 17:37 | XMS_ITS | Encounter Summary ---
Author Organization [employer] Address [address] [place] [address] 7t [place] [address] Care Team Providers Care Shower Enclosure Installer Name Role Phone Sheyla Harris MD Primary Care Provider +1- [phone] Madison Epstein Unavailable Meka García OD Unavailable Encounter Details Date Type Department Care Team ([facility] Contact Info) Description 04/20/[address] [facility] [address] [place] [address] Sheyla Harris MD [address] [place] [address] [phone] Social History Tobacco Use Types Packs/Day Years [...] Upcoming Encounters Date Type Department Care Team ([facility] Contact Info) Description 12/18/2024 2:45 PM EST Office Visit [facility] [address] [place] [address] [phone] Sheyla Harris MD [address] [place] [address] documented as of this encounter Visit Diagnoses Not on filedocumented in this encounter Care Teams Shower Enclosure Installer Relationship Specialty Start Date End Date Sheyla Harris MD 230 [place] [address] PCP - General Family Medicine 10/16/18 Madison Epstein [address] [place] [address] Gynecology 10/30/24 Meka García OD [address] [place] [address] Optometry 10/30/24 documented as of this encounter
--- OUTSIDE RECORDS SUMMARY | 2024-11-14 17:37 | XMS_ITS | Encounter Summary ---
Author Organization [facility] Address [address] [place] [address] Phone Care Team Providers Care Directory Clerk Name Role Phone Sheyla Harris MD Primary Care Provider U keya Encounter Details Date Type Department Care Team (Late st Contact Info) Description 09/01/2022 Documentation Only [facility] [address] [place] [address] Azra Coreas Social History Tobacco [...] on filedocumented in this encounter Care Teams Directory Clerk Relationship Specialty Start Date End Date Sheyla Harris MD PCP - General Family Medicine 04/19/22 documented as of this encounter
--- OUTSIDE RECORDS SUMMARY | 2024-11-14 17:37 | XMS_ITS | Clinical Summary ---
Author Organization [facility] Address [address] [place] [address] Care Team Providers Care Featheredge Machine Operator Name Role Phone Sheyla Harris MD Primary Care Provider U navailable Allergies No known active allergies Medications omeprazole (PriLOSEC) [address] capsule TAKE 1 CAPSULE BY MOUTH EVERY DAY BEFORE A MEAL NEEDED 2 Active Vitamin D, Ergocalciferol, 19623 units capsule Take 1,000 mg by mouth Active ferrous sulfate 325 (65 Fe) MG tablet Take 325 mg by mouth 1 (one) time each day with breakfast Active hydrOXYzine (ATARAX) 25 MG tablet TAKE 1 TABLET BY MOUTH AT BEDTIME NEEDED FOR ANXIETY 2 Active amLODIPine (NORVASC) 2.5 MG tablet Take 1 tablet (2.5 mg total) by mouth 1 (one) time each day Take at bedtime 90 tablet 11 2 Active lisinopril 20 MG tablet Take 1.5 tablets (30 mg total) by mouth 1 (one) time each day 135 tablet 3 3 Active Active Problems Problem Noted Date Diagnosed Date Essential (primary) hypertension 07/19/2022 Anemia, not otherwise specified 07/19/2022 Dyslipidemia 07/19/2022 Encounters Date Type Department Care Team Description 11/12/2024 Refill [facility] [address] [place] [id number] Jeff Carroll MD from Last 3 Months Social History Tobacco Use Types Packs/Day Years Used Date Smoking Tobacco: Never Assessed Comments Unknown Sex and Gender Information Value Date Recorded Sex Assigned at Not on file Legal Sex Female 10:33 AM EDT Gender Identity Not on file Sexual Orientation Not on file Last Filed Vital Signs Vital Sign Reading Time Taken Comments Blood Pressure 110/70 08/31/2022 1:26 PM EST Pulse 91 08/31/2022 1:26 PM EST Temperature - - Respiratory Rate - - Oxygen Saturation 99% 08/31/2022 1:26 PM EST Inhaled Oxygen Concentration - - Weight 77.1 kg (170 lb) 08/31/2022 1:26 PM EST Height - - Body Mass Index - - Plan of Treatment Health Maintenance Due Date Last Done Comments Hepatitis B Vaccine (1 of 3 - 19+ 3-dose series) 1996 02/28/2024 Influenza Vaccine (#1) 2024 12/06/2023, 2021 Diabetes: Hemoglobin A1C 11/12/2024 01/19/2024, 09/15 Diabetes: Ophthalmology Exam 11/12/2024 Diabetes: Pedal Pulse Checked 11/12/2024 Diabetes: Sensory Foot Exam 11/12/2024 Diabetes: Visual Foot Exam 11/12/2024 Pneumococcal Vaccine: Pediat rics (0 to 5 Years) and At-Risk Patients (6 to 64 Years) Completed 02/28/2024 Procedures Procedure Name Priority Date/Time Associated Diagnosis Comments EXT RESULT ENTRY Routine 09/28/2021 from Last 3 Months or Most Recently Relevant to Health Maintenance Results * (ABNORMAL) EXT RESULT ENTRY (09/28/2021) WBC 5.7 3.3 - 10.0 10*3/ML Red Blood Cell Count 4.54 Hemoglobin 9.1(A) 12.0 - 16.0 Hematocrit 30.5(A) 36.0 - 46.0 MCV 67.2(A) 82.0 - 108.0 Iron 17 UG/DL Iron Saturation (TSat) 3 % TIBC 534 ug/dL Ferritin 4.0(A) 9.0 - 150.0 NG/ML Hemoglobin A1C 6.2(A) 4.0 - 6.0 09/28/2021 us Historical Provider LAB BLOOD ORDERABLES Nani l Result from Last 3 Months or Most Recently Relevant to Health Maintenance Insurance MEDICAID ID MEDICAID ID Care Teams Featheredge Machine Operator Relationship Specialty Start Date End Date Steven, Sheyla Jackson MD PCP - General Family Medicine 04/19/22
--- OUTSIDE RECORDS SUMMARY | 2024-11-14 17:37 | XMS_ITS | Encounter Summary ---
Author Organization [employer] Address [address] [facility] 7t [place] [address] Care Team Providers Care Cook Mess Name Role Phone Sheyla Harris MD Primary Care Provider +1- [phone] Madison Epstein Unavailable Meka García OD Unavailable Encounter Details Date Type Department Care Team ([facility] st Contact Info) Description 04/07/2024 Abstract [facility] [address] [place] [address] Sheyla Harris MD 230 [place] [address] Social History Tobacco Use Types Packs/Day Years [...] Description 12/18/2024 2:45 PM EST Office Visit [facility] [address] [place] [address] Sheyla Harris MD [address] [place] [address] documented as of this encounter Procedures Procedure Name Priority Date/Time Associated Diagnosis Comments HM FIT DNA/COLOGUARD CANCER SCREENING Routine 02/17/2024 documented in this encounter Results * FIT DNA/Cologuard Cancer Screening (02/17/2024) Cologuard Cancer Screen Negative Stool Historical Provider HEALTH MAINTENANCE Final Result documented in this encounter Visit Diagnoses Not on filedocumented in this encounter Care Teams Cook Mess Relationship Specialty Start Date End Date Sheyla Harris MD [address] [place] [address] [phone] PCP - General Family Medicine 10/16/18 Madison Epstein [address] [address] Gynecology 10/30/24 Meka García OD [address] [place] [address] Optometry 10/30/24 documented as of this encounter
--- OUTSIDE RECORDS SUMMARY | 2024-11-14 17:37 | XMS_ITS | Encounter Summary ---
Author Organization [employer] Address [address] [place] [address] 7t [place] [address] Care Team Providers Care Supervisory Lifeguard Name Role Phone Sheyla Harris MD Primary Care Provider [phone]- [phone] Madison Epstein Unavailable Meka García OD Unavailable [phone] Reason for Visit * Reason Comments Med Refill Encounter Details Date Type Department Care Team (Late st Contact Info) Description 11/28/2022 Refill [facility] 230 [place], [place] [phone] Sheyla Harris MD [address] [place] [address] [phone] Anxiety Social History Tobacco Use Types Packs/Day Years [...] Description 12/18/2024 2:45 PM EST Office Visit [facility] 230 [place], [place] [phone] Sheyla Harris MD 230 [place], [place] [phone] documented as of this encounter Visit Diagnoses Diagnosis Anxiety Anxiety state, unspecified Dietary counseling Dietary surveillance and counseling Exercise counseling Class 1 obesity due to excess calories with serious comorbidity and body mass index (BMI) of 31.0 to 31.9 in adult Type 2 diabetes mellitus without complication, without long-term current use of insulin ([facility]) documented in this encounter Care Teams Supervisory Lifeguard Relationship Specialty Start Date End Date Sheyla Harris MD 230 [place] [address] PCP - General Family Medicine 10/16/18 Madison Epstein [address] [place] [address] Gynecology 10/30/24 eMka García OD [address] [place] [address] Optometry 10/30/24 documented as of this encounter
[2024-11-14 18:42] LABS: Alanine Aminotransferase 19 U/L (0-31); Albumin Level 4.3 g/dL (3.5-5.0); Anion Gap 13 (12-20); Aspartate Amino Transferase 38 U/L (5-31); Bilirubin Direct 0.1 mg/dL (0.0-0.5); Bilirubin Total 0.3 mg/dL (0.0-1.0); Blood Urea Nitrogen 8 mg/dL (9-16); Calcium 9.4 mg/dL (8.4-10.2); Carbon Dioxide 27 mmol/L (22-29); Chloride 104 mmol/L (96-108); Cholesterol 103 mg/dL (<200); Estimated Glomerular Filt Rate > 60; Glucose Random 104 mg/dL (60-115); HDL Cholesterol 29 mg/dL (>40); Iron 13 mcg/dL (30-160); LDL Cholesterol Calculated 42 mg/dL (<100); Percent Iron Saturation 3 % (15-50); Potassium 4.7 mmol/L (3.3-5.1); Sodium 139 mmol/L (135-145); Total Iron Binding Capacity 458 mcg/dL (228-428); Total Protein 7.7 g/dL (6.5-8.0); Triglycerides 161 mg/dL (<150); Unsaturated Iron Binding 445 ug/dL
[2024-11-14 18:57] LABS: Alkaline Phosphatase 84 U/L (39-117); Ferritin 9 ng/mL (10-250); TSH reflex Free T4 0.59 uIU/mL (0.32-4.0)
== END 2024-11-14 13:47 | disposition home or self-care (01) ==
LOC: HO.HHCL 13:46
PROVIDERS: Visit Provider Family Medicine
DX: E11.9 Type 2 diabetes mellitus without complications (principal); D50.9 Iron deficiency anemia, unspecified
CPT/HCPCS: 36415; 80048; 80061; 80076; 82607; 82728; 83036; 83540; 84443; 85025

== ENCOUNTER 2024-11-14 17:08 | Emergency (ER) | payer MEDICAID, SELFPAY ==
[2024-11-14 17:24] VITALS: BP 187/76; PULSE 89; RESP 16; TEMP 36.2; O2SAT 100; BMI 28.4
--- NOTE | 2024-11-14 17:26 | ED_ITS ---
HPI - General Adult General Chief complaint: Recheck/Abnormal Lab/Rx Stated complaint: blood transfusion needed Time Seen by Provider: 11/14/24 20:48 Source: patient Mode of arrival: ambulatory Limitations: no limitations History of Present Illness ED Provider: Dr. Niharika Mcginnis HPI narrative: Patient comes to the emergency room complaining of low hemoglobin. Patient states that she is aware that she has history of anemia and iron deficiency. Patient states that she had issues with her iron infusion about a year ago, and completely stopped her treatments. Patient went to see her PCP today, blood work showed a hemoglobin of 6.8. Patient received a phone call to come to emergency room for a blood transfusion. Patient states that she has never had a transfusion in the past but she has had multiple iron infusions. Patient complaining of occasional lightheadedness, no chest pain or shortness of breath. Also, it was noted that patient's blood pressure is significantly elevated in the 200s systolic. Patient states that she was out of lisinopril for several days. 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 Related Data Home Medications ?Medication ?Instructions ?Recorded ?Confirmed cholecalciferol (vitamin D3) 25 1 cap PO DAILY 10/05/21 02/13/24 mcg (1,000 unit) capsule (Vitamin D3) omeprazole 20 mg capsule,delayed 1 cap PO DAILY 10/05/21 02/13/24 release lisinopril 20 mg tablet 20 mg PO DAILY 01/10/24 02/13/24 rosuvastatin 5 mg tablet 5 mg PO DAILY 03/27/24 Allergies Allergy/AdvReac Type Severity Reaction Status Date / Time No Known Allergies Allergy Verified 11/14/24 17:26 [No Known Allergies*] Review of Systems 2 Review of Systems: Constitutional : No Weight loss, No Fever, No Chills, No Night Sweats, No Fatigue, No Malaise ENT/Mouth : No Hearing loss, No Ear Pain, No Nasal Congestion, No Sinus Pain, No Hoarseness, No sore throat, No Rhinorrhea, No Swallowing Difficulty Eyes: No Eye Pain, No Swelling, No Redness, No Foreign Body, No Discharge, No Vision Changes Cardiovascular : No Chest Pain, No SOB, No Dyspnea on Exertion, No Orthopnea, No Edema, No Palpitations Respiratory : No Cough, No Sputum, No Wheezing, No Smoke Exposure, No Dyspnea Gastrointestinal : No Nausea, No Vomiting, No Diarrhea, No Constipation, No abdominal Pain, No Hematochezia, No Melena Genitourinary : no irregular bleeding, No Dysuria, No Urinary Frequency, No Hematuria, No Urinary Incontinence, No Urgency, No Flank Pain, No Urinary Flow Changes, No Hesitancy Musculoskeletal : No joint pain, No Myalgias, No Joint Swelling Skin : No Skin Lesions, No rash Neuro : No Weakness, No Numbness, No Paresthesias, No Loss of Consciousness, complaining of occasional dizziness, unsteadiness, my headache Psych : No Anxiety/Panic, No Depression, No SI/HI/AH/VH, No Social Issues, Heme/Lymph: No Bruising, No Bleeding,No Lymphadenopathy, complaining of low hemoglobin Endocrine : No Polyuria, No Polydipsia, No Temperature Intolerance PMFSH Past Medical History Medical History Fibroid Personal history of kidney stones Depression Anxiety High cholesterol Pre-diabetes Microcytic anemia Surgical History Hx of tubal ligation Hx of removal of cyst Family History Family History Maternal Grandmother Heart disease Father Cirrhosis of liver Social History Social History Household Members: Spouse and Children Housing: Apartment Are you a primary plant health care technician to a significant other at home: No Do you presently have visiting nurse or other home services: No Alcohol intake: current Alcohol intake frequency: does not drink Patient Tobacco Use Status: Current everyday Tobacco user Tobacco use type: Cigarette Cigarettes Per Day: 9 Smoked in Last 30 Days: No Use of substances other than those prescribed or required for medical reasons: No Advance Directives: No Advance Directives Information Provided: Yes service: No Current occupational status: employed 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 Physical Exam ED Vital Signs: Vital Signs - 24 hr 11/14/24 17:24 11/14/24 20:34 11/14/24 21:52 Temperature 97.2 F 98.6 F Pulse Rate 89 85 86 Respiratory Rate 16 14 16 Blood Pressure 187/76 H 198/100 H 165/98 H Pulse Oximetry 100 100 Oxygen Delivery Method Room Air Room Air 11/14/24 22:04 11/14/24 22:20 11/14/24 22:23 Temperature 98.6 F 98.6 F 98.6 F Pulse Rate 86 84 84 Respiratory Rate 16 14 14 Blood Pressure 165/98 H 159/83 H 159/83 H Pulse Oximetry 99 Oxygen Delivery Method Room Air 11/15/24 00:04 11/15/24 01:30 11/15/24 02:16 Temperature 98.6 F 98.7 F 97.3 F Pulse Rate 88 89 81 Respiratory Rate 16 16 18 Blood Pressure 166/82 H 163/94 H 148/112 H Pulse Oximetry 100 99 Oxygen Delivery Method Room Air Room Air 11/15/24 03:40 11/15/24 03:57 11/15/24 04:06 Temperature 98.7 F 98.7 F 98.2 F Pulse Rate 75 78 74 Respiratory Rate 18 15 16 Blood Pressure 165/93 H 167/85 H 167/85 H Pulse Oximetry 94 Oxygen Delivery Method Room Air 11/15/24 06:01 Temperature 98 F Pulse Rate 69 Respiratory Rate 18 Blood Pressure 176/94 H Pulse Oximetry 98 Oxygen Delivery Method Room Air BMI result Body Mass Index 28.4 Const Other: Appearance: Alert. Oriented X3. No acute distress. Eyes: Pupils equal, round and reactive to light. ENT: Pharynx normal. Neck: Normal inspection. Neck supple. No lymph nodes noted. No crepitus CVS: Normal heart rate and rhythm. Pulses normal. Normal S1 and S2 Respiratory: No respiratory distress. Breath sounds normal. No Wheezing. No rales Abdomen: Soft and nontender. No rigidity. No distention. Skin: Skin warm and dry. Mildly Pale skin color. Normal skin turgor. Extremities: No lower extremity edema. No Lacerations. No Rash Neuro: Oriented X 3. No motor deficit. No sensory deficit. Moving all extremities. No slurred speech. CN 2 through 12 grossly intact Psych: calm, cooperative, normal affect Course Course Course Narrative: RME, this is a rapid medical exam performed by Tomas Baca please refer to primary provider for complete H&P- 49-year-old with past medical history significant for iron-deficiency anemia and Pica presents for evaluation of abnormal labs. Patient had outpatient labs about 3 hours ago that show hemoglobin was 6.8. The patient reports she stopped taking her iron supplementation about 5 months ago due to adverse effects of GI upset. She reports feeling dizzy. Plans for type and screen, she denies any black or bloody stool. Medications Administered Discontinued Medications Generic Name Dose Route Start Last Admin Trade Name Christopher PRN Reason Stop Dose Admin Acetaminophen 975 mg 11/14/24 23:57 11/15/24 00:03 Acetaminophen 325 Mg Tablet PO 11/14/24 23:58 975 mg ONCE ONE Administration Diphenhydramine HCl 50 mg 11/15/24 01:59 11/15/24 02:18 Diphenhydramine Hcl 50 Mg/Ml Vial IVPUSH 11/15/24 02:00 50 mg ONCE ONE Administration Famotidine 20 mg 11/15/24 01:59 11/15/24 02:18 Famotidine/Pf 20 Mg/2 Ml Vial IVPUSH 11/15/24 02:00 20 mg ONCE ONE Administration Lisinopril 40 mg 11/14/24 21:17 11/14/24 22:08 Lisinopril 40 Mg Tablet PO 11/14/24 21:18 40 mg ONCE ONE Administration Protocol Methylprednisolone Sodium Succinate 125 mg 11/15/24 01:59 11/15/24 02:18 Methylprednisolone Sod Succ 125 Mg/2 Ml Vial IVPUSH 11/15/24 02:00 125 mg ONCE ONE Administration Medical Decision Making Medical Decision Making MDM Narrative: Patient's hemoglobin from this morning was 6.8. Patient states that she does have history of heavy menstrual periods, however, for the last few cycles she has had fairly normal periods. Patient states that she has never received blood before. I discussed with the patient the risks versus benefits of a blood transfusion. Patient agreeable to proceed with the transfusion. Consent signed For the blood pressure, patient was given 40 mg of lisinopril. It is possible that patient may need other medication p.o.. Otherwise we will do IV meds as well. Patient was given 40 mg of lisinopril, blood pressure 166/82. Patient completed the 1st unit of blood, patient states that she feels hot. Requesting ice packs and water. Patient denies chest pain or shortness of breath, no itching. Patient's temperature was checked, no fever. Empirically, patient was given a dose of IV Solu-Medrol, Pepcid and Benadryl. After the transfusion, patient may be discharged. Sign-out given to my colleague Dr. Moctezuma 620 am Patient is feeling much better now received 2 units of blood, will discharge patient home Differential Diagnosis Differential Diagnoses: The differential diagnosis associated with the presentation includes (Iron deficiency anemia, microcytic anemia, hypertension, hypertensive urgency) Admission/Observation Consideration of admission/observation: Escalation of care including admission/observation considered (Given patient's presentation and vitals, observation/admission has been considered) Lab Data 11/14/24 21:18 Labs: Lab Results 11/14/24 11/14/24 11/14/24 Range/Units 20:41 20:45 21:18 WBC 6.8 (4.8-10.8) X10*3/uL RBC 4.33 (4.20-5.50) X10*6/uL Hgb 6.8 L* (12.0-16.0) g/dl Hct 25.6 L (37.0-47.0) % MCV 59.1 L (80.0-98.0) fL MCH 15.7 L (27.0-33.0) pg MCHC 26.6 L (31.0-35.0) g/dl RDW 20.5 H (11.0-16.0) % Plt Count 195 (160-400) X10*3/uL MPV TNP Immature Gran % (Auto) 0.3 (0.0-0.4) % Neut % (Auto) 59.9 (45-73) % Lymph % (Auto) 29.3 (20-40) % [place] % (Auto) 7.5 (2-11) % Eos % (Auto) 2.3 (0-4) % Baso % (Auto) 0.7 (0-2) % Lymph # (Auto) 2.0 (1.2-4.9) X10*3/uL [place] # (Auto) 0.5 (0.1-1.2) X10*3/uL Eos # (Auto) 0.2 (0.0-0.4) X10*3/uL Baso # (Auto) 0.1 (0.0-0.2) X10*3/uL Abs Immat Gran (auto) 0.02 (0.00-0.03) X10*3/uL Absolute Neuts (auto) 4.1 (2.0-8.3) x10*3/uL Absolute Nucleated RBC 0.000 (0.0-0.012) X10*3/uL Nucleated RBC % (auto) 0.0 (0.0-0.2) /100WBC POC Glucose 102 (60-115) mg/dL Blood Type O Positive Antibody Screen NEGATIVE Crossmatch See Detail Critical Care Time Critical Care Time Critical Care Time: Yes Total Critical Care Time: 60 Attestation: I have personally provided critical care time. Time includes review of lab data, radiology results, discussion with consultants, and monitoring for potential decompensation. Intervention performed as documented. Discharge Plan Discharge Clinical Impression: Anemia, Hypertensive urgency Patient Disposition: Home, Self-Care Instructions: Hypertensive Crisis (ED), Anemia (ED) Additional Instructions: Please follow-up with your primary care physician tomorrow. If you have any worsening or new symptoms, please return to the emergency room or call 911 Prescriptions: No Action omeprazole 20 mg capsule,delayed release(DR/EC) 1 cap PO DAILY cholecalciferol (vitamin D3) [Vitamin D3] 25 mcg (1,000 unit) capsule 1 cap PO DAILY lisinopril 20 mg tablet 20 mg PO DAILY rosuvastatin 5 mg tablet 5 mg PO DAILY Print Language: Slovak
[2024-11-14 20:34] VITALS: BP 198/100; PULSE 85; RESP 14; TEMP 37; O2SAT 100
[2024-11-14 20:44] LABS: Glucose, Whole Blood 102 mg/dL (60-115)
[2024-11-14 21:22] LABS: MANUAL DIFF FLAG NO
[2024-11-14 21:24] LABS: SCAN SMEAR FLAG 1
[2024-11-14 21:26] LABS: Basophils Absolute Auto 0.1 X10*3/uL (0.0-0.2); Basophils Percent Auto 0.7 % (0-2); Eosinophils Absolute Auto 0.2 X10*3/uL (0.0-0.4); Eosinophils Percent Auto 2.3 % (0-4); Hematocrit 25.6 % (37.0-47.0); Imm Gran Abs Auto 0.02 X10*3/uL (0.00-0.03); Imm Gran Pct Auto 0.3 % (0.0-0.4); Lymphocytes Percent Auto 29.3 % (20-40); Mean Corpuscular HGB Conc 26.6 g/dl (31.0-35.0); Mean Corpuscular Hemoglobin 15.7 pg (27.0-33.0); Mean Corpuscular Volume 59.1 fL (80.0-98.0); Monocytes Absolute Auto 0.5 X10*3/uL (0.1-1.2); Monocytes Percent Auto 7.5 % (2-11); Neutrophils Absolute Auto 4.1 x10*3/uL (2.0-8.3); Neutrophils Percent Auto 59.9 % (45-73); PLT CLUMP 1; Red Blood Count 4.33 X10*6/uL (4.20-5.50); Red Cell Distribution Width 20.5 % (11.0-16.0)
[2024-11-14 21:27] LABS: PLT ABN DIST 1
[2024-11-14 21:39] LABS: Hemoglobin 6.8 g/dl (12.0-16.0)
[2024-11-14 21:52] VITALS: BP 165/98; PULSE 86; RESP 16
[2024-11-14 21:53] LABS: Platelet Count 195 X10*3/uL (160-400); White Blood Count 6.8 X10*3/uL (4.8-10.8)
--- NOTE | 2024-11-14 21:53 | PC.NURSE ---
pt recheck as documented. md aware. pt states did not take lisinopril dose x 2 days d/t running out.
[2024-11-14 22:04] VITALS: BP 165/98; PULSE 86; RESP 16; TEMP 37
[2024-11-14] MEDS: lisinopriL 40 MG TABLET PO (22:08)
[2024-11-14 22:20] VITALS: BP 159/83; PULSE 84; RESP 14; TEMP 37
[2024-11-14 22:23] VITALS: BP 159/83; PULSE 84; RESP 14; TEMP 37; O2SAT 99
[2024-11-15] VITALS (8 sets, daily range): BP systolic 148–176; BP diastolic 82–112; PULSE 69–89; RESP 15–18; TEMP 36.3–37.1; O2SAT 94–100
[2024-11-15] MEDS: Acetaminophen 325 MG TABLET 975 MG PO (00:03)
--- NOTE | 2024-11-15 01:32 | PC.NURSE ---
late entry approx 2330 pt reported feeling nauseous but stated she is hungry, son brought her food per MD approal to eat, pt reports nausea improved after eating. 2355 pt reports 9/10 JEAN, per MD verbal order tylenol given. 0125 1RBC infusion finished, vitals as documented. no adverse reaction noted. pt speaking full clear sentences lung sounds cta, sats 100% on RA.
--- NOTE | 2024-11-15 01:59 | PC.NURSE ---
pt reports feeling hot. no sweating/rash/fever noted. MD made aware. to hold off on 2nd prbc, meds ordered per dec.
[2024-11-15] MEDS: Famotidine/PF 20 MG/2 ML VIAL IVPUSH (02:18)
[2024-11-15] MEDS: diphenhydrAMINE HCL 50 MG/ML VIAL IVPUSH (02:18)
[2024-11-15] MEDS: methylPREDNISolone Sod Succ 125 MG/2 ML VIAL IVPUSH (02:18)
== END 2024-11-15 06:25 | disposition home or self-care (01) ==
PROVIDERS: Emergency Provider Emergency Medicine; PCP Family Medicine
DX: D50.9 Iron deficiency anemia, unspecified (principal); I16.0 Hypertensive urgency; R42 Dizziness and giddiness; E11.9 Type 2 diabetes mellitus without complications; E78.5 Hyperlipidemia, unspecified; F17.210 Nicotine dependence, cigarettes, uncomplicated; Z79.02 Long term (current) use of antithrombotics/antiplatelets; Z79.899 Other long term (current) drug therapy
CPT/HCPCS: 36415; 36430; 82947; 85025; 86850; 86900; 86901; 86923; 96374; 96375; 99285; J1200; J2919; P9016

== ENCOUNTER 2024-11-15 09:48 | Outpatient (REF) | payer MEDICAID, SELFPAY ==
--- OUTSIDE RECORDS SUMMARY | 2024-11-15 10:25 | XMS_ITS | Encounter Summary ---
Author Organization [employer] Address [address] [facility] 7t [place] [address] Care Team Providers Care Pellet Mill Operator Name Role Phone Sheyla Harris MD Primary Care Provider [phone]- [phone] Madison Epstein Unavailable Meka García OD Unavailable Reason for Visit * Reason Onset Date Comments CRITICAL RESULT 11/14/2024 Encounter Details Date Type Department Care Team ([facility] st Contact Info) Description 11/14/2024 Telephone [facility] 230 [place], [place] [phone] Sheyla Harris MD 230 [place], [place] [phone] CRITICAL RESULT Social History Tobacco Use Types Packs/Day Years [...] is your housing situation today? I have marlynfrances stanton 11/27/[address] you [...] encounter Miscellaneous Notes * Telephone Encounter - Magaly Maynard RN - 11/15/2024 8:49 AM EST Pt seen at [facility] ED last night, given 2 units PRB and discharged. Has appt with PCP today. Uploaded ED summary under media * Telephone Encounter - Magaly Maynard RN - 11/14/2024 4:37 PM EST Telephone call placed to pt. Advised to have someone drive her to the ED as she needs blood transfusion. Pt states will go to [facility] now. * Telephone Encounter - Silvia Woodson RN - 11/14/2024 4:26 PM EST Incoming call to the Critical Result line 11/14/24 at 4:26 PM Name of Caller/Facility:[facility] [place] [facility] Callback number: [phone] Reason for Call: HGB of 6.8 drawn today at 1346 Message to be forwarded to Sheyla Harris MD and team nurses for follow up. documented in this encounter Plan of Treatment Upcoming Encounters Date Type Department Care Team (Late st Contact Info) Description 12/18/2024 2:45 PM EST Office Visit [facility] 230 [place] [address] Sheyla Harris MD [address] [place] [address] documented as of this encounter Visit Diagnoses Not on filedocumented in this encounter Care Teams Pellet Mill Operator Relationship Specialty Start Date End Date Sheyla Harris MD [address] [place] [address] PCP - General Family Medicine 10/16/18 Madison Epstein [address] [place] [address] Gynecology 10/30/24 Meka García OD [address] [place] [address] Optometry 10/30/24 documented as of this encounter
--- OUTSIDE RECORDS SUMMARY | 2024-11-15 10:27 | XMS_ITS | Encounter Summary ---
Author Organization [employer] Address [address] [place] [address] 7 [place] [address] Care Team Providers Care Senior Game Advisor Name Role Phone Sheyla Harris MD Primary Care Provider [phone]- [phone] Madison Epstein Unavailable Meka García OD Unavailable [phone] Reason for Visit * Reason Comments Med Refill Encounter Details Date Type Department Care Team (Late Contact Info) Description 05/30/2023 Refill [facility] [address] [place] [address] Ayesha Shannon MD [address] [place] [address] Gastroesophageal reflux disease, unspecified whether esophagitis present [...] Description 12/18/2024 2:45 PM EST Office Visit [facility] 230 [place] [address] Sheyla Harris MD 230 [place] [address] documented as of this encounter Visit Diagnoses Diagnosis Gastroesophageal reflux disease, unspecified whether esophagitis present Dietary counseling Dietary surveillance and counseling Exercise counseling Class 1 obesity due to excess calories with serious comorbidity and body mass index (BMI) of 31.0 to 31.9 in adult Type 2 diabetes mellitus without complication, without long-term current use of insulin ([facility]) documented in this encounter Care Teams Senior Game Advisor Relationship Specialty Start Date End Date Sheyla Harris MD 230 [place] [address] PCP - General Family Medicine 10/16/18 Madison Epstein [address] [address] Gynecology 10/30/24 Meka García OD [address] [place] [address] Optometry 10/30/24 documented as of this encounter
--- OUTSIDE RECORDS SUMMARY | 2024-11-15 10:27 | XMS_ITS | Encounter Summary ---
Author Organization [employer] Address 75 [facility] 7t [place] [address] Care Team Providers Care Sidehand Name Role Phone Sheyla Harris MD Primary Care Provider [phone]- [phone] Madison Epstein Unavailable Ricky Meka OD Unavailable Encounter Details Date Type Department Care Team ([facility] st Contact Info) Description 11/14/2024 1:00 PM EST Office Visit [facility] 230 [place] [address] Dolores Hodges, ANP 230 [place], [place] [phone] Essential (primary) hypertension (Primary Dx); Smoking; Encounter [...] not yet had repeat done. 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 [...] Description 12/18/2024 2:45 PM EST Office Visit [facility] [address] [place] [address] Sheyla Harris MD [address] [place] [address] documented as of this encounter Visit Diagnoses Diagnosis Essential (primary) hypertension- Primary Unspecified essential hypertension Smoking Tobacco use disorder Encounter for immunization Dietary counseling Dietary surveillance and counseling Exercise counseling Class 1 obesity due to excess calories with serious comorbidity and body mass index (BMI) of 31.0 to 31.9 in adult Type 2 diabetes mellitus without complication, without long-term current use of insulin ([facility]) documented in this encounter Care Teams Sidehand Relationship Specialty Start Date End Date Sheyla Harris MD 230 [place] [address] PCP - General Family Medicine 10/16/18 Madison Epstein [address] [place] [address] Gynecology 10/30/24 Meka García OD [address] [place] [address] [phone] Optometry 10/30/24 documented as of this encounter
--- OUTSIDE RECORDS SUMMARY | 2024-11-15 10:27 | XMS_ITS | Encounter Summary ---
Author Organization [employer] Address [address] [facility] 7t [place] [address] Care Team Providers Care Broadcast Maintenance Technician Name Role Phone Sheyla Harris MD Primary Care Provider [phone]- [phone] Madison Epstein Unavailable Meka García OD Unavailable [phone] Reason for Visit * Reason Comments Med Refill Encounter Details Date Type Department Care Team ([facility] st Contact Info) Description 09/24/2024 Refill [facility] 230 [place] [address] Sheyla Harris MD 230 [place] [address] Social History Tobacco Use Types Packs/Day Years [...] Description 12/18/2024 2:45 PM EST Office Visit [facility] 230 [place] [address] Sheyla Harris MD 230 [place] [address] documented as of this encounter Visit Diagnoses Not on filedocumented in this encounter Care Teams Broadcast Maintenance Technician Relationship Specialty Start Date End Date Sheyla Harris MD 230 [place] [address] PCP - General Family Medicine 10/16/18 Madison Epstein [address] [place] [address] Gynecology 10/30/24 Meka García OD [address] [place] [address] Optometry 10/30/24 documented as of this encounter
--- OUTSIDE RECORDS SUMMARY | 2024-11-15 10:27 | XMS_ITS | Clinical Summary ---
Author Organization [facility] Address [address] [place] [address] Care Team Providers Care Bioinformatics Analyst Name Role Phone Sheyla Harris MD Primary Care Provider U navailable Allergies No known active allergies Medications omeprazole (PriLOSEC) [address] capsule TAKE 1 CAPSULE BY MOUTH EVERY DAY BEFORE A MEAL NEEDED 2 Active Vitamin D, Ergocalciferol, 12751 units capsule Take 1,000 mg by mouth [...] Of [place] [address] [place] [phone] Jeff Carroll MD from Last 3 Months [...] Recently Relevant to Health Maintenance Insurance [place] Care Teams Bioinformatics Analyst Relationship Specialty Start Date End Date Steven, Sheyla Jackson MD PCP - General Family Medicine 04/19/22
--- OUTSIDE RECORDS SUMMARY | 2024-11-15 10:27 | XMS_ITS | Encounter Summary ---
Author Organization [employer] Address [address] [facility] 7t [place] [address] Care Team Providers Care English As A Second Language Teacher Name Role Phone Sheyla Harris MD Primary Care Provider [phone]- [phone] Reason for Visit * Reason Onset Date Comments December Recall 10/25/2024 Encounter Details Date Type Department Care Team ([facility] Contact Info) Description 10/25/2024 Telephone [facility] [address] [place], [place] [phone] Angela Banuelos [place] December Recall Social History Tobacco Use Types [...] 12/18/2024 2:45 PM EST Office Visit [facility] [address] [place] [address] Sheyla Harris MD 230 [place] [address] documented as of this encounter Visit Diagnoses Not on filedocumented in this encounter Care Teams English As A Second Language Teacher Relationship Specialty Start Date End Date Sheyla Harris MD 230 [place] [address] PCP - General Family Medicine 10/16/18 documented as of this encounter
--- OUTSIDE RECORDS SUMMARY | 2024-11-15 10:27 | XMS_ITS | Encounter Summary ---
Author Organization [employer] Address [address] [facility] 7t [place] [address] Care Team Providers Care Electrical Construction Project Manager Name Role Phone Sheyla Harris MD Primary Care Provider [phone] Madison Epstein Unavailable Meka García LEI Unavailable [phone] Encounter Details Date Type Department Care [...] your housing situation today? I have marlyn statnon 11/27/[address] you li [...] Description 12/18/2024 2:45 PM EST Office Visit [facility] 230 [place] [address] Sheyla Harris MD 230 [place] [address] documented as of this encounter Visit Diagnoses Not on filedocumented in this encounter Care Teams Electrical Construction Project Manager Relationship Specialty Start Date End Date Sheyla Harris MD 230 [place] [address] PCP - General Family Medicine 10/16/18 Madison Epstein [address] [address] Gynecology 10/30/24 Meka García OD [address] [place] [address] Optometry 10/30/24 documented as of this encounter
--- OUTSIDE RECORDS SUMMARY | 2024-11-15 10:27 | XMS_ITS | Encounter Summary ---
Author Organization [employer] Address [address] [facility] 7t [place] [address] Care Team Providers Care Phone Counselor Name Role Phone Sheyla Harris MD Primary Care Provider [phone]- [phone] Madison Epstein Unavailable Meka García OD Unavailable Encounter Details Date Type Department Care Team (Late st Contact Info) Description 11/14/2024 Orders Only [facility] [address] [place] [address] Sheyla Harris MD [address] [place] [address] Type 2 diabetes mellitus without complication, without long-term current use of insulin (CMS/[facility]) (Primary Dx); Iron deficiency anemia, unspecified iron [...] 12/18/2024 2:45 PM EST Office Visit [facility] [address] [place] [address] Sheyla Harris MD [address] [place] [address] Scheduled Orders Name Type Priority Associated Diagnoses Orde r Schedule Albumin, Random Urine W/Creatinine Lab Routine Type 2 diabetes mellitus without complication, without long-term current use of insulin (CMS/HCC) Expected: 11/14/2024 (Approximate), Expires: 11/14/2025 documented as of this encounter Procedures Procedure Name Priority Date/Time Associated Diagnosis Comments CBC WITH AUTO DIFFERENTIAL Routine 11/14/2024 9:18 PM EST Type 2 diabetes mellitus without complication, without long-term current use of insulin (CMS/HCC) RED BLOOD COUNT Routine 11/14/2024 8:45 PM EST Type 2 diabetes mellitus without complication, without long-term current use of insulin (CMS/HCC) TYPE AND SCREEN Routine 11/14/2024 8:45 PM EST Type 2 diabetes mellitus without complication, without long-term current use of insulin (CMS/HCC) GLUCOSE, WHOLE BLOOD Routine 11/14/2024 8:41 PM EST Type 2 diabetes mellitus without complication, without long-term current use of insulin (CMS/HCC) SLIDE REVIEW Routine 11/14/2024 1:49 PM EST Type 2 diabetes mellitus without complication, without long-term current use of insulin (CMS/HCC) TSH W/REFLEX TO FT4 Routine 11/14/2024 1 :49 PM EST Iron deficiency anemia, unspecified iron deficiency anemia type CBC WITH AUTO DIFFERENTIAL Routine 11/14/2024 1:49 PM EST Iron deficiency anemia, unspecified iron deficiency anemia type IRON AND TOTAL IRON BINDING CAPACITY Routine 11/14/2024 1:49 PM EST Iron deficiency anemia, unspecified iron deficiency anemia type HEMOGLOBIN A1C Routine 11/14/2024 1:49 PM EST Type 2 diabetes mellitus without complication, without long-term current use of insulin (CMS/HCC) FERRITIN Routine 11/14/2024 1:49 PM EST Iron deficiency anemia, unspecified iron deficiency anemia type VITAMIN B12 Routine 11/14/2024 1:49 PM EST Iron deficiency anemia, unspecified iron deficiency anemia type HEPATIC FUNCTION PANEL Routine 11/14/2024 1:49 PM EST Type 2 diabetes mellitus without complication, without long-term current use of insulin (CMS/HCC) LIPID PANEL, STANDARD Routine 11/14/2024 1:49 PM EST Type 2 diabetes mellitus without complication, without long-term current use of insulin (CMS/HCC) BASIC METABOLIC PANEL Routine 11/14/2024 1:49 PM EST Type 2 diabetes mellitus without complication, without long-term current use of insulin (CMS/HCC) documented in this encounter Results * (ABNORMAL) CBC auto differential (11/14/2024 9:18 PM EST) White Blood Count 6.8 4.8 - 10.8 X10*3/uL [facility] Red Blood Count 4.33 4.20 - 5.50 X10*6/uL [facility] Hemoglobin 6.8(LL) 12.0 - 16.0 g/dl [facility] Comment:Results of HGB cook d to and read back by Marie 11/14/24 at 2128 by YOLY. Hematocrit 25.6(L) 37.0 - 47.0 % [facility] Mean Corpuscular Volume 59.1(L) 80.0 - 98.0 fL [facility] Mean Corpuscular Hemoglobin 15.7(L) 27.0 - 33.0 pg [facility] Mean Corpuscular HGB Conc 26.6(L) 31.0 - 35.0 g/dl [facility] Red Cell Distribution Width 20.5(H) 11.0 - 16.0 % [facility] Platelet Count 195 160 - 400 X10*3/uL [facility] Mean Platelet Volume TNP 9.4 - 12.3 fL [facility] Neutrophils Percent Auto 59.9 45 - 73 % [facility] Imm Gran Pct Auto 0.3 0.0 - 0.4 % [facility] Lymphocytes Percent Auto 29.3 20 - 40 % [facility] Monocytes Percent Auto 7.5 2 - 11 % [facility] Eosinophils Percent Auto 2.3 0 - 4 % [facility] Basophils Percent Auto 0.7 0 - 2 % [facility] NRBC Pct Auto 0.0 0.0 - 0.2 /100WBC [facility] Neutrophils Absolute Auto 4.1 2.0 - 8.3 x10*3/uL [facility] Imm Gran Abs Auto 0.02 0.00 - 0.03 X10*3/uL [facility] Lymphocytes Absolute Auto 2.0 1.2 - 4.9 X10*3/uL [facility] Monocytes Absolute Auto 0.5 0.1 - 1.2 X10*3/uL [facility] Eosinophils Absolute Auto 0.2 0.0 - 0.4 X10*3/uL [facility] Basophils Absolute Auto 0.1 0.0 - 0.2 X10*3/uL [facility] NRBC Abs Auto 0.000 0.0 - 0.012 X10*3/uL [facility] 11/14/2024 9:18 PM EST 11/14/2024 9:21 PM EST Generic External Data Provider LAB BLOOD ORDERAB LES Final Result Performing Organization Address [facility]/ZIP Co de Phone Number [facility] [address] [place] [phone] * Red blood count (11/14/2024 8:45 PM EST) Red Blood Cells: [id number] OP RC TRANSFUSED 11/14/242157 [id number] OP RC TRANSFUSED 11/15/24 0333 [facility] 11/14/2024 8:45 PM EST 11/14/2024 8:50 PM EST Generic External Data Provider LAB BLOOD ORDERAB LES Final Result Performing Organization Address [facility] de Phone Number [facility] [address] [place] [phone] * Type and screen (11/14/2024 8:45 PM EST) Blood Type OP [facility] Comment:RH IMMUNE GLOBULIN I NDICATED: NO Antibody Screen NEGATIVE [facility] 11/14/2024 8:45 PM EST 11/14/2024 8:50 PM EST Narrative [facility] - 11/15/2024 6:23 AM EST Results at Issue Units as of 11/14/24 2158 ...Test View Group: Most Recent HGB ?? HCT Results ?LABORATORYDate ?Time Test ?Result ?Flag Normal Range11/14/242117 HGB ?6.8 ?*L ?? 12.0-16.0 g/dlResults of HGB called to and read back by Yast 11/14/24 at 2127 by YOLY.11/14/242117 HCT ?25.6 ?L ?? 37.0-47.0 % Results at Issue Units as of 11/15/24 0334 ...Test View Group: Most Recent HGB ?? HCT Results ?LABORATORYDate ?Time Test ?Result ?Flag Normal Range11/14/242117 HGB ?6.8 ?*L ?? 12.0-16.0 g/dlResults of HGB called to and read back by Yast 11/14/24 at 2127 by YOLY.11/14/242117 HCT ?25.6 ?L ?? 37.0-47.0 % No us Generic External Data Provider LAB BLOOD BANK TE ST ORDERABLES Final Result [facility] [address] [place] [address] [phone] * Glucose, Whole Blood (11/14/2024 8:41 PM EST) Glucose, Whole Blood 102 60 - 115 mg/dL [facility] Comment:METER #: [id number] 11/14/2024 8:41 PM EST 11/14/2024 8:44 PM EST Generic External Data Provider LAB BLOOD ORDERAB LES Final Result Performing Organization Address [facility] Co de Phone Number [facility] [address] [place] [phone] * Slide Review (11/14/2024 1:49 PM EST) Slide Review VERIFIED [facility] 11/14/2024 1:49 PM EST 11/14/2024 3:58 PM EST Sheyla Harris MD LAB BLOOD ORDERABLES Final Result Performing Organization Address [facility] de Phone Number [facility] [address] [place] [phone] * TSH with Reflex to Free T4 (11/14/2024 1:49 PM EST) TSH reflex Free T4 0.59 0.32 - 4.0 uIU/mL [facility] Blood 11/14/2024 1:49 PM EST 11/14/2024 3:58 PM EST Sheyla Harris MD LAB BLOOD ORDERABLES Final Result Performing Organization Address [facility] Co de Phone Number [facility] [address] [place] [phone] * Vitamin B12 (11/14/2024 1:49 PM EST) Vitamin B12 422 200 - 900 pg/mL [facility] Comment:NORMAL 200-900 PG/ML INDETERMINATE 160-199 PG/ML DEFICIENT < 160 PG/ML Blood Venous blood specimen / Unknown 11/14/2024 1:49 PM EST 11/14/2024 3:58 PM EST Sheyla Harris MD LAB BLOOD ORDERABLES Final Result Performing Organization Address [facility] de Phone Number [facility] [address] [place] [phone] * (ABNORMAL) Iron And Total Iron Binding Capacity (11/14/2024 1:49 PM EST) [facility] Iron 13(L) 30 - 160 mcg/dL [facility] Total Iron Binding Capacity 458(H) 228 - 428 mcg/dL [facility] Percent Iron Saturation 3(L) 15 - 50 % [facility] Unsaturated Iron Binding 445 ug/dL [facility] Blood Venous blood specimen / Unknown 11/14/2024 1:49 PM EST 11/14/2024 3:58 PM EST Sheyla Harris MD LAB BLOOD ORDERABLES Final Result Performing Organization Address [facility] de Phone Number [facility] [address] [place] [phone] * (ABNORMAL) Ferritin (11/14/2024 1:49 PM EST) [facility] Ferritin 9(L) 10 - 250 ng/mL [facility] Blood Venous blood specimen / Unknown 11/14/2024 1:49 PM EST 11/14/2024 3:58 PM EST Sheyla Harris MD LAB BLOOD ORDERABLES Final Result Performing Organization Address [facility] Co de Phone Number [facility] [address] [place] [phone] * (ABNORMAL) CBC auto differential (11/14/2024 1:49 PM EST) [facility] White Blood Count 5.3 4.8 - 10.8 X10*3/uL [facility] Red Blood Count 4.31 4.20 - 5.50 X10*6/uL [facility] Hemoglobin 6.8(LL) 12.0 - 16.0 g/dl [facility] Comment:Results of HGB cook d to and read back by ESPINOZA Tesfaye 11/14/24 at 1627 by YOLY. Hematocrit 26.0(L) 37.0 - 47.0 % [facility] Mean Corpuscular Volume 60.3(L) 80.0 - 98.0 fL [facility] Mean Corpuscular Hemoglobin 15.8(L) 27.0 - 33.0 pg [facility] Mean Corpuscular HGB Conc 26.2(L) 31.0 - 35.0 g/dl [facility] Red Cell Distribution Width 21.1(H) 11.0 - 16.0 % [facility] Platelet Count 198 160 - 400 X10*3/uL [facility] Mean Platelet Volume TNP 9.4 - 12.3 fL [facility] Neutrophils Percent Auto 57.8 45 - 73 % [facility] Imm Gran Pct Auto 0.2 0.0 - 0.4 % [facility] Lymphocytes Percent Auto 29.3 20 - 40 % [facility] Monocytes Percent Auto 8.7 2 - 11 % [facility] Eosinophils Percent Auto 3.2 0 - 4 % [facility] Basophils Percent Auto 0.8 0 - 2 % [facility] NRBC Pct Auto 0.0 0.0 - 0.2 /100WBC [facility] Neutrophils Absolute Auto 3.1 2.0 - 8.3 x10*3/uL [facility] Imm Gran Abs Auto 0.01 0.00 - 0.03 X10*3/uL [facility] Lymphocytes Absolute Auto 1.6 1.2 - 4.9 X10*3/uL [facility] Monocytes Absolute Auto 0.5 0.1 - 1.2 X10*3/uL [facility] Eosinophils Absolute Auto 0.2 0.0 - 0.4 X10*3/uL [facility] Basophils Absolute Auto 0.0 0.0 - 0.2 X10*3/uL [facility] NRBC Abs Auto 0.000 0.0 - 0.012 X10*3/uL [facility] Blood Venous blood specimen / Unknown 11/14/2024 1:49 PM EST 11/14/2024 3:58 PM EST Sheyla Harris MD LAB BLOOD ORDERABLES Edite d Result - Final Performing Organization Address City/[facility]/ZIP Co de Phone Number [facility] [address] [place] [address] [phone] * (ABNORMAL) Basic Metabolic Panel (11/14/2024 1:49 PM EST) Sodium 139 135 - 145 mmol/L [facility] Potassium 4.7 3.3 - 5.1 mmol/L [facility] Chloride 104 96 - 108 mmol/L [facility] Carbon Dioxide 27 22 - 29 mmol/L [facility] Anion Gap 13 12 - 20 [facility] Urea Nitrogen (BUN) 8(L) 9 - 16 mg/dL [facility] Creatinine, Serum 0.77 0.5 - 1.4 mg/dL [facility] Estimated Glomerular Filt Rate >60 [facility] Comment:Chronic Kidney Disea se: Estimated GFR < 60 mL/min/1.76n1Pboghz Kidney Disease: Estimated GFR < 15 mL/min/1.73m2 Glucose 104 60 - 115 mg/dL [facility] Calcium 9.4 8.4 - 10.2 mg/dL [facility] Blood Venous blood specimen / Unknown 11/14/2024 1:49 PM EST 11/14/2024 3:58 PM EST Sheyla Harris MD LAB BLOOD ORDERABLES Final Result Performing Organization Address [facility]/ZIP Co de Phone Number [facility] [address] [place] [address] [phone] * (ABNORMAL) Hemoglobin A1c (11/14/2024 1:49 PM EST) Hemoglobin A1c 6.1(H) <6.0 % [facility] Comment:Hemoglobin A1C Refer ence Range Adults: 4.8 - 6.0 % Non diabetic: < 6.0 % Goal: < 7.0 %Additional Action Suggested: > 8.0 %Note: Hemoglobin A1c results are invalid for patients with abnormal amounts of HbF. Blood transfusions may impact the HbA1c concentration in the patient sample. Estimated Average Glucose 128 mg/dL [facility] Comment:eAG = Estimated ave rage glucose which is %A1C expressed asaverage glucose, using the formula of the [id number] Glucose study (ADAG), Diabetes Care, Vol.31,#8,May. 2007 Blood Venous blood specimen / Unknown 11/14/2024 1:49 PM EST 11/14/2024 3:58 PM EST us Sheyla Harris MD LAB BLOOD ORDERABLES Final Result [facility] [address] [place] [address] [phone] * (ABNORMAL) Lipid Panel, Standard (11/14/2024 1:49 PM EST) Triglycerides 161(H) <150 mg/dL [facility] Comment:Desirable Triglyceri de: less than 150 mg/dLBorderline High Triglyceride 150-199 mg/dLHigh Triglyceride: 200-499 mg/dLVery High Triglyceride: greater than or equal to 5OO mg/dL Cholesterol 103 <200 mg/dL [facility] Comment:Desirable Cholestero l: less than 200 mg/dLBorderline High Cholesterol: 200-239 mg/dLHigh Cholesterol: greater than 239 mg/dL LDL Cholesterol Calculated 42 <100 mg/dL [facility] Comment:Desirable LDL: less than 100 mg/dLNear Optimal/Above Optimal LDL: 110- 129 mg/dLBorderline High LDL: 130-159 mg/dLHigh LDL: 160-189 mg/dLVery High LDL: greater than or equal to 190 mg/dL HDL Cholesterol 29(L) >40 mg/dL [facility] Comment:Desirable HDL: great er than 40 mg/dL Note: This HDL assay may give artificially low results in patients with liver disease. Blood Venous blood specimen / Unknown 11/14/2024 1:49 PM EST 11/14/2024 3:58 PM EST Sheyla Harris MD LAB BLOOD ORDERABLES Final Result Performing Organization Address [facility] Co de Phone Number [facility] [address] [place] [address] [phone] * (ABNORMAL) Hepatic Function Panel (11/14/2024 1:49 PM EST) Bilirubin, Total 0.3 0.0 - 1.0 mg/dL [facility] Bilirubin, Direct 0.1 0.0 - 0.5 mg/dL [facility] Aspartate Amino Transferase 38(H) 5 - 31 U/L [facility] Alanine Aminotransferase 19 0 - 31 U/L [facility] Total Protein 7.7 6.5 - 8.0 g/dL [facility] Albumin Level 4.3 3.5 - 5.0 g/dL [facility] Alkaline Phosphatase 84 39 - 117 U/L [facility] Blood Venous blood specimen / Unknown 11/14/2024 1:49 PM EST 11/14/2024 3:58 PM EST Result [facility] Sheyla Harris MD LAB BLOOD ORDERABLES Final Result Performing Organization Address [facility] de Phone Number [facility] [address] [place] [phone] documented in this encounter Visit Diagnoses Diagnosis Type 2 diabetes mellitus without complication, without long-term current use of insulin (CMS/HCC)- Primary Iron deficiency anemia, unspecified iron deficiency anemia type Dietary counseling Dietary surveillance and counseling Exercise counseling Class 1 obesity due to excess calories with serious comorbidity and body mass index (BMI) of 31.0 to 31.9 in adult Type 2 diabetes mellitus without complication, without long-term current use of insulin (CMS/HCC) documented in this encounter Care Teams Phone Counselor Relationship Specialty Start Date End Date Sheyla Harris MD [address] [place], [place] [phone] PCP - General Family Medicine 10/16/18 Madison Epstein [address] [place] [address] [phone] Gynecology 10/30/24 Meka García OD [address] [place] [address] [phone] Optometry 10/30/24 documented as of this encounter
--- OUTSIDE RECORDS SUMMARY | 2024-11-15 10:27 | XMS_ITS | Encounter Summary ---
Author Organization [employer] Address [address] [place] [address] 7 [place] [address] Care Team Providers Care Project Control Analyst Name Role Phone Sheyla Harris MD Primary Care Provider [phone] Madison Epstein Unavailable Meka García OD Unavailable [phone] Reason for Visit * Reason Comments Med Refill Encounter Details Date Type Department Care Team (Late st Contact Info) Description 11/28/2022 Refill [facility] [address] [place], [place] [phone] Sheyla Harris MD [address] [place] [address] [phone] Anxiety Social History Tobacco Use Types Packs/Day [...] Description 12/18/2024 2:45 PM EST Office Visit [facility] [address] [place], [place] [phone] Sheyla Harris MD [address] [place], [place] [phone] documented as of this encounter Visit Diagnoses Diagnosis Anxiety Anxiety state, unspecified Dietary counseling Dietary surveillance and counseling Exercise counseling Class 1 obesity due to excess calories with serious comorbidity and body mass index (BMI) of 31.0 to 31.9 in adult Type 2 diabetes mellitus without complication, without long-term current use of insulin ([facility]) documented in this encounter Care Teams Project Control Analyst Relationship Specialty Start Date End Date Sheyla Harris MD [address] [place] [phone] PCP - General Family Medicine 10/16/18 Madison Epstein [address] [place] [phone] Gynecology 10/30/24 Meka García OD [address] [place] [phone] Optometry 10/30/24 documented as of this encounter
--- OUTSIDE RECORDS SUMMARY | 2024-11-15 10:27 | XMS_ITS | Encounter Summary ---
Author Organization [employer] Address [address] [place] [address] [address] [place] [address] Care Team Providers Care Systems Project Manager Name Role Phone Sheyla Harris MD Primary Care Provider [phone] EpsteinShellia Unavailable Meka García OD Unavailable [phone] Encounter Details Date Type Department Care Team ([facility] Contact Info) Description 11/22/2022 Abstract [facility] [address] [place] [phone] Sheyla Harris MD [address] [place] [address] [phone] Social History Tobacco Use Types Packs/Day Years [...] Upcoming Encounters Date Type Department Care Team ([facility] Contact Info) Description 12/18/2024 2:45 PM EST Office Visit [facility] [address] [place] [address] [phone] Sheyla Harris MD [address] [place] [address] documented as of this encounter Procedures Procedure [...] on filedocumented in this encounter Care Teams Systems Project Manager Relationship Specialty Start Date End Date Sheyla Harris MD [address] [place] [phone] PCP - General Family Medicine 10/16/18 Madison Epstein [address] [phone] Gynecology 10/30/24 Meka García OD [address] [place] [phone] Optometry 10/30/24 documented as of this encounter
--- OUTSIDE RECORDS SUMMARY | 2024-11-15 10:27 | XMS_ITS | Encounter Summary ---
Author Organization [employer] Address [address] [place] [address] 7t [place] [address] Care Team Providers Care Supervisor Microfilm Duplicating Unit Name Role Phone Sheyla Harris MD Primary Care Provider [phone] Epstein Madison Unavailable Meka García OD Unavailable [phone] Reason for Referral * Consultation (Routine) - Authorized Specialty Diagnoses / Procedures Referred By Earnestine darden Referred To Contact Pharmacy Diagnoses Essential (primary) hypertension Sheyla Harris MD [address] [place] [address] Phone: tel: fax: Referral ID Status Reason Start Date Expiration Date Visits Requested Visits Authorized [id number] Authorized Consult and Treat 11/15/2024 11/15/2025 6 6 * Consultation (Routine) - Pending Review Specialty Diagnoses / Procedures Referred By Earnestine darden Referred To Contact Hematology and Oncology Diagnoses Iron deficiency anemia, unspecified iron deficiency anemia type Sheyla Harris MD [address] [place] [address] Phone: tel: fax: Referral ID Status Reason Start Date Expiration Date Visits Requested Visits Authorized [id number] Pending Review Specialty Services Required 11/15/2024 11/15/2025 1 1 Reason for Visit * Reason Comments Follow-up Encounter Details Date Type Department Care Team ([facility] st Contact Info) Description 11/15/2024 10:00 AM EST Office Visit [facility] [address] [place] [address] Sheyla Harris MD [address] [place] [address] Type 2 diabetes mellitus without complication, without long-term current use of insulin (CMS/[facility]) (Primary Dx); Iron deficiency anemia, unspecified iron deficiency anemia type; Essential (primary) hypertension; Dyslipidemia; Tobacco dependence syndrome; Class 1 obesity due to excess calories without serious comorbidity with body mass index (BMI) of 31.0 to 31.9 in adult; Dietary counseling; Exercise counseling; Encounter for immunization; Other specified health status Social History Tobacco Use Types Packs/Day Years [...] Sign Reading Time Taken Comments Blood Pressure 158/94 11/15/2024 10:18 AM EST Pulse 67 11/15/2024 9:56 AM EST Temperature 37.2 ??C (98.9 ??F) 11/15/2024 9:56 AM ES T Respiratory Rate 20 11/15/2024 9:56 AM EST Oxygen Saturation 98% 11/15/2024 9:56 AM EST Inhaled Oxygen Concentration - - Weight 71 kg (156 lb 8 oz) 11/15/2024 9:56 AM ES T Height - - Body Mass Index 28.62 11/14/2024 1:02 PM EST documented in this encounter Miscellaneous Notes * Assessment & Plan Note - Hiram Camacho - 11/15/2024 10:26 AM ESTAssociated Problem(s): Dyslipidemia Lab Results Component Value Date CHOL 103 11/14/2024 CHOL 216 (H) 01/19/2024 TRIG 161 (H) 11/14/2024 TRIG 224 (H) 01/19/2024 HDL 29 (L) 11/14/2024 HDL 43 01/19/2024 LDLCHOLCAL 42 11/14/2024 LDLCHOLCAL 129 (H) 01/19/2024 -continue lifestyle modification Rosuvastatin 10mg started 02/28/24 * Assessment & Plan Note - Hiram Camacho - 11/15/2024 10:25 AM ESTAssociated Problem(s): Type 2 diabetes mellitus, without long-term current use of insulin ([facility]) Diabetes diagnosed 02/28/24 based on elevated A1c 6.8 Lab Results Component Value Date HGBA1C 6.1 (H) 11/14/2024 HGBA1C 6.8 (H) 01/19/2024 HGBA1C 6.2 (H) 09/28/2021 Lab Results Component Value Date CREATININE 0.77 11/14/2024 -Curtis/Arb: none -Statin therapy: rosuvastatin 10mg daily started 02/28/24 -Diabetic eye exam: done 08/06/24 -Diabetic foot exam: normal, risk cat 0 02/28/24 -Continue lifestyle modifications -Semiglutide 0.25 weekly denied twice -followed by RN type 2 diabetes team - metformin ER 500mg daily started 05/02/24 * Assessment & Plan Note - Hiram Camacho - 11/15/2024 10:25 AM ESTAssociated Problem(s): Essential (primary) hypertension Goal </= 130/80. On 11/14/24 BP was elevated, ordered labs, potassium normal. She is asymptomatic today in regards tochest pain, shortness of breath, headache, vision changes. Re-start lisinopril 20mg daily. -lisinopril (Prinivil) 20 MG 11/14/24 On 11/15/24 BP still elevated, will start on Amlodipine. -Start Amlodipine (Norvasc) 5 MG * Assessment & Plan Note - Hiram Camacho - 11/15/2024 10:20 AM ESTAssociated Problem(s): Exercise counseling Exercise Recommendations: At least 150 minutes of moderate-intensity physical activity per week, or an equivalent combinationof moderate- and vigorous-intensity activity * Assessment & Plan Note - Hiram Camacho - 11/15/2024 10:20 AM ESTAssociated Problem(s): Dietary counseling Dietary Recommendations: Fruits, vegetables, whole grains, protein foods, and fat-free or low-fat dairy products are healthychoices. Eat different types of protein foods in your diet. This can include seafood, lean meats, poultry, beans, peas, lentils, nuts, seeds, soy products, and eggs. Limit foods and beverages higher in added sugars, saturated fat, and sodium. * Assessment & Plan Note - Hiram Camacho - 11/15/2024 10:20 AM ESTAssociated Problem(s): Obesity Discussed weight, diet, exercise with patient in relation to health conditions. Used motivational interviewing to illicit change talk and established initial goals with patient. -offered Semaglutide, pt declined twice * Assessment & Plan Note - Hiram Camacho - 11/15/2024 10:19 AM ESTAssociated Problem(s): Tobacco dependence syndrome -Cigg/day: down to half a pack per day, down from 1 ppd -Age started: 17 y.o. -Total years smoking: > 20 -Pack year history: > 20 Encouraged smoking cessation resources such as pharmacomtherapy, [facility] smoking cessation group, and [facility] pharmacy smoking cessation clinic. Discussed USPSTF recommends annual lung cancer screening with low dose CT in people who meet the following criteria: -ages 50 to 80 years. -have a 20 pack-year smoking history. -currently smoke cigarettes or quit within the past 15 years. -LDCT: due age 52 -Prescribed tobacco patch December 2020 -01/10/2024 directed to stop using tobacco patch and start taking Chantix * Assessment & Plan Note - Hiram Camacho - 11/15/2024 10:06 AM ESTAssociated Problem(s): Other specified health status -next physical exam due after 11/15/25 -eye care facilitated by referral placed to [facility] 02/28/24 -dental home encouraged. 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 -she will be following with party plan salesperson and GI in the near future. -Hgb 6.8 on 11/14/24, sent to ED to get transfusion. Got transfused 2 units. -referred to Hematology 11/15/24 -pt agrees to start iron supplement, although had upset stomach from previous attempts, she has them at home. documented in this encounter Plan of Treatment Upcoming Encounters Date Type Department Care Team (Late st Contact Info) Description 12/18/2024 2:45 PM EST Office Visit [facility] [address] [place] [address] Sheyla Harris MD [address] [place] [address] Scheduled Referrals Name Type Priority Associated Diagnoses Orde r Schedule Referral to Hematology / Oncology Outpatient Referral Routine Iron deficiency anemia, unspecified iron deficiency anemia type Expected: 11/15/2024 (Approximate), Expires: 11/15/2025 Referral to Pharmacy CDTM Outpatient Referral Routine Essential (primary) hypertension Ordered: 11/15/2024 documented as of this encounter Visit Diagnoses Diagnosis Type 2 diabetes mellitus without complication, without long-term current use of insulin (CMS/HCC)- Primary Iron deficiency anemia, unspecified iron deficiency anemia type Essential (primary) hypertension Unspecified essential hypertension Dyslipidemia Other and unspecified hyperlipidemia Tobacco dependence syndrome Tobacco use disorder Class 1 obesity due to excess calories without serious comorbidity with body mass index (BMI) of 31.0 to 31.9 in adult Dietary counseling Dietary surveillance and counseling Exercise counseling Encounter for immunization Other specified health status Dietary counseling Dietary surveillance and counseling Exercise counseling Class 1 obesity due to excess calories with serious comorbidity and body mass index (BMI) of 31.0 to 31.9 in adult Type 2 diabetes mellitus without complication, without long-term current use of insulin (CMS/[facility]) documented in this encounter Care Teams Supervisor Microfilm Duplicating Unit Relationship Specialty Start Date End Date Sheyla Harris MD [address] [place] [phone] PCP - General Family Medicine 10/16/18 Madison Epstein [address] [place] [address] Gynecology 10/30/24 Meka García OD [address] [place] [address] Optometry 10/30/24 documented as of this encounter
--- OUTSIDE RECORDS SUMMARY | 2024-11-15 10:27 | XMS_ITS | Encounter Summary ---
Author Organization [employer] Address [address] [place] [address] 7t [place] [address] Care Team Providers Care Rn Ent Name Role Phone Sheyla Harris MD Primary Care Provider [phone] Madison Epstein Unavailable Meka García OD Unavailable [phone] Encounter Details Date Type Department Care Team ([facility] Contact Info) Description 04/20/2023 Orders Only [facility] [address] [place] [address] Sheyla Harris MD [address] [place] [address] [phone] Social History Tobacco Use Types Packs/Day Years [...] Upcoming Encounters Date Type Department Care Team ([facility] Contact Info) Description 12/18/2024 2:45 PM EST Office Visit [facility] [address] [place] [address] [phone] Sheyla Harris MD [address] [place] [address] documented as of this encounter Visit Diagnoses Not on filedocumented in this encounter Care Teams Rn Ent Relationship Specialty Start Date End Date Sheyla Harris MD [address] [place] [address] PCP - General Family Medicine 10/16/18 Madison Epstein [address] [place] [address] Gynecology 10/30/24 Meka García OD [address] [place] [address] Optometry 10/30/24 documented as of this encounter
--- OUTSIDE RECORDS SUMMARY | 2024-11-15 10:27 | XMS_ITS | Encounter Summary ---
Author Organization [employer] Address [address] [facility] 7t [place] [address] Care Team Providers Care Barratte Operator Name Role Phone Sheyla Harris MD Primary Care Provider [phone] Madison Epstein Unavailable Meka García OD Unavailable Encounter Details Date Type Department Care Team ([facility] st Contact Info) Description 04/07/2024 Abstract [facility] [address] [place] [address] Sheyla Harris MD [address] [place] [address] Social History Tobacco Use Types Packs/Day Years [...] Description 12/18/2024 2:45 PM EST Office Visit [facility] [address] [place] [address] Sheyla Harris MD [address] [place] [address] documented as of this encounter Procedures Procedure Name Priority Date/Time Associated Diagnosis Comments HM FIT DNA/COLOGUARD CANCER SCREENING Routine 02/17/2024 documented in this encounter Results * FIT DNA/Cologuard Cancer Screening (02/17/2024) Cologuard Cancer Screen Negative Stool Historical Provider HEALTH MAINTENANCE Final Result documented in this encounter Visit Diagnoses Not on filedocumented in this encounter Care Teams Barratte Operator Relationship Specialty Start Date End Date Sheyla Harris MD [address] [place] [address] [phone] PCP - General Family Medicine 10/16/18 Madison Epstein [address] [address] Gynecology 10/30/24 Meka García OD [address] [place] [address] Optometry 10/30/24 documented as of this encounter
--- OUTSIDE RECORDS SUMMARY | 2024-11-15 10:27 | XMS_ITS | Encounter Summary ---
Author Organization [employer] Address [address] [facility] 7t [place] [address] Care Team Providers Care Emergency Veterinary Assistant Name Role Phone Sheyla Harris MD Primary Care Provider [phone] Madison Epstein Unavailable Meka García OD Unavailable Reason for Visit * Reason Onset Date Comments Med Refill 11/12/2024 Encounter Details Date Type Department Care Team ([facility] st Contact Info) Description 11/12/2024 Telephone [facility] [address] [place] [address] Sheyla Harris MD [address] [place], [place] [phone] Med Refill Social History Tobacco Use Types [...] be completed prior to inform which med. Garden Center Manager advised for pt to come in [...] pt, advised that lisinopril is prescribed by vice president financial below. Pt stated I only went to [...] phone. Denies chest pain or other symptoms. Garden [facility] Manager strongly advised pt to go to ED immediately due to concern for hypertension symptoms and possible intake of incorrect medication/dose, no available appt times and per manager plumbing, unable to direct book in walk in clinic. Pt stated she preferred to go home, check her BP, andthen go to the ED if BP was high. Pt stated she is in [place] dropping her daughter off with a friend driving, writer technical publications asked recommended go to ED now due to symptoms, pt stated not really, no because of long wait times and reported anxiety while waiting for doctors. Asked pt if she would be willing to come to [facility] walk in clinic (gave extended hours), pt [...] who that doctor is. Contact pt at [phone] for more information. * Telephone Encounter - Azra Angel LPN - 11/12/2024 10:31 AM EST Medication is prescribed by Jeff Carroll. * Telephone Encounter - Silvia Steven - 11/12/2024 9:49 AM EST TC from pt requesting medication refill. Medications needing refill : lisinopril 20 MG tablet To be sent to: [facility]/pharmacy #[id number] documented in this encounter Plan of Treatment Upcoming Encounters Date Type Department Care Team (Late st Contact Info) Description 12/18/2024 2:45 PM EST Office Visit [facility] [address] [place] [phone] Sheyla Harris MD [address] [place] [address] documented as of this encounter Visit Diagnoses Not on filedocumented in this encounter Care Teams Emergency Veterinary Assistant Relationship Specialty Start Date End Date Sheyla Harris MD [address] [place] [address] PCP - General Family Medicine 10/16/18 Madison Epstein [address] [address] Gynecology 10/30/24 Meka García OD [address] [place] [address] Optometry 10/30/24 documented as of this encounter
--- OUTSIDE RECORDS SUMMARY | 2024-11-15 10:28 | XMS_ITS | Encounter Summary ---
Author Organization [facility] Address [address] [place] [address] Phone Care Team Providers Care Sand Polisher Name Role Phone Sheyla Harris MD Primary Care Provider U keya Encounter Details Date Type Department Care Team (Late st Contact Info) Description 09/01/2022 Documentation Only [facility] [address] [place] [address] [place] [address] Azra Coreas Social History Tobacco [...] on filedocumented in this encounter Care Teams Sand Polisher Relationship Specialty Start Date End Date Sheyla Harris MD PCP - General Family Medicine 04/19/22 documented as of this encounter
--- OUTSIDE RECORDS SUMMARY | 2024-11-15 10:28 | XMS_ITS | Encounter Summary ---
Author Organization [facility] Address [address] [facility] [address] [place] [address] Phone Care Team Providers Care Manager Data Name Role Phone Sheyla Harris MD Primary Care Provider U navailable Reason for Visit * Reason Comments Med Refill Encounter Details Date Type Department Care Team (Late st Contact Info) Description 11/12/2024 Refill [facility] [address] [facility] [address] [place] [address] Jeff Carroll MD [address] [facility] [address] [place] [address] Social History Tobacco Use Types [...] on filedocumented in this encounter Care Teams Manager Data Relationship Specialty Start Date End Date Sheyla Harris MD PCP - General Family Medicine 04/19/22 documented as of this encounter
--- OUTSIDE RECORDS SUMMARY | 2024-11-15 10:28 | XMS_ITS | Encounter Summary ---
Author Organization [facility] Address [address] [place] [place] [address] Phone Care Team Providers Care Fiberline Supervisor Name Role Phone Sheyla Harris MD Primary Care Provider U keya Encounter Details Date Type Department Care Team (Late st Contact Info) Description 09/01/2022 Documentation Only [facility] [address] [place] [address] [place] [address] Azra Coreas Social History Tobacco [...] on filedocumented in this encounter Care Teams Fiberline Supervisor Relationship Specialty Start Date End Date Sheyla Harris MD PCP - General Family Medicine 04/19/22 documented as of this encounter
[2024-11-15 12:28] LABS: Creatinine Urine 56.65 mg/dL; Microalbum/Creatinine Ratio Ur 128.8 ug/mg cr (<30)
== END 2024-11-15 09:49 | disposition home or self-care (01) ==
LOC: HO.HHCL 09:48
PROVIDERS: Visit Provider Family Medicine
DX: E11.9 Type 2 diabetes mellitus without complications (principal)
CPT/HCPCS: 82043; 82570

== ENCOUNTER 2025-01-07 13:25 | Outpatient (REF) | payer MEDICAID, SELFPAY ==
--- OUTSIDE RECORDS SUMMARY | 2025-01-07 16:18 | XMS_ITS | Clinical Summary ---
Author Organization [facility] Address [address] [place] [address] Care Team Providers Care Ice Hockey Coach Name Role Phone Sheyla Harris MD Primary Care Provider U navailable Allergies No known active allergies Medications omeprazole (PriLOSEC) [address] capsule TAKE 1 CAPSULE BY MOUTH EVERY DAY BEFORE A MEAL NEEDED 2 Active Vitamin D, Ergocalciferol, 51252 units capsule Take 1,000 mg by mouth [...] [place] [address] [place] [place] [phone] Jeff Carroll MD from Last 3 Months [...] Recently Relevant to Health Maintenance [place] Care Teams Ice Hockey Coach Relationship Specialty Start Date End Date Steven, Sheyla Jackson MD PCP - General Family Medicine 04/19/22
--- OUTSIDE RECORDS SUMMARY | 2025-01-07 16:18 | XMS_ITS | Encounter Summary ---
Author Organization [facility] Address [address] [place] [place] [address] Phone Care Team Providers Care Life Insurance Sales Name Role Phone Sheyla Harris MD Primary Care Provider U keya Encounter Details Date Type Department Care Team (Late st Contact Info) Description 09/01/2022 Documentation Only [facility] [address] [place] [address] [place] [address] Azra Coreas Social History Tobacco [...] on filedocumented in this encounter Care Teams Life Insurance Sales Relationship Specialty Start Date End Date Sheyla Harris MD PCP - General Family Medicine 04/19/22 documented as of this encounter
--- OUTSIDE RECORDS SUMMARY | 2025-01-07 16:18 | XMS_ITS | Encounter Summary ---
Author Organization [facility] Address [address] [place] [place] [address] Phone Care Team Providers Care Photoengraving Printer Name Role Phone Sheyla Harris MD Primary Care Provider U keya Encounter Details Date Type Department Care Team (Late st Contact Info) Description 09/01/2022 Documentation Only [facility] [address] [place] [address] [place] [address] Azra Coreas Social History Tobacco [...] on filedocumented in this encounter Care Teams Photoengraving Printer Relationship Specialty Start Date End Date Sheyla Harris MD PCP - General Family Medicine 04/19/22 documented as of this encounter
--- OUTSIDE RECORDS SUMMARY | 2025-01-07 16:18 | XMS_ITS | Encounter Summary ---
Author Organization [facility] Address [address] [facility] [address] [place] [address] Phone Care Team Providers Care Receiving Dock Checker Name Role Phone Sheyla Harris MD Primary Care Provider U navailable Reason for Visit * Reason Comments Med Refill Encounter Details Date Type Department Care Team (Late st Contact Info) Description 11/12/2024 Refill [facility] [address] [facility] [address] [place] [address] Jeff Carroll MD [address] [facility] [address] [place] [address] Social History Tobacco Use Types [...] on filedocumented in this encounter Care Teams Receiving Dock Checker Relationship Specialty Start Date End Date hSeyla Harris MD PCP - General Family Medicine 04/19/22 documented as of this encounter
== END 2025-01-07 13:26 | disposition home or self-care (01) ==
LOC: HO.MAMMO 13:25
PROVIDERS: PCP Family Medicine; Visit Provider Family Medicine
DX: Z12.31 Encounter for screening mammogram for malignant neoplasm of breast (principal)
CPT/HCPCS: 77063; 77067

== ENCOUNTER → 2025-01-07 13:30 | Outpatient (BNV) | payer MEDICAID, SELFPAY | PROVIDERS: PCP Family Medicine; Visit Provider Internal Medicine | DX: Z12.31 Encounter for screening mammogram for malignant neoplasm of breast (principal) | CPT/HCPCS: 77063; 77067 ==

== ENCOUNTER 2025-01-13 14:31 | Outpatient (REF) | payer MEDICAID, SELFPAY ==
[2025-01-13 16:18] LABS: MANUAL DIFF FLAG NO
--- OUTSIDE RECORDS SUMMARY | 2025-01-13 16:25 | XMS_ITS | Encounter Summary ---
Author Organization [employer] Address [address] [place] [address] 7t [place] [address] Care Team Providers Care Cafe Manager Name Role Phone Sheyla Harris MD Primary Care Provider [phone] Madison Epstein Unavailable Meka García OD Unavailable Sheryl Marti MD Unavailable [phone] Joy James PharmD Unavailable Encounter Details Date Type Department Care Team (Late Contact Info) Description 04/20/2023 Orders Only [facility] [address] [place] [address] [phone] Sheyla Harris MD [address] [place] [address] [phone] Social History Tobacco Use Types Packs/Day Years [...] Department Care Team (Late Contact Info) Description 01/15/2025 10:30 AM EDT Medication Management [facility] [address] [place] [phone] Joy James, PharmD [address] [place] [address] 02/17/2025 11:00 AM EDT Office Visit [facility] [address] [place] [address] Sheyla Harris MD [address] [place] [address] documented as of this encounter Visit Diagnoses Not on filedocumented in this encounter Care Teams Cafe Manager Relationship Specialty Start Date End Date Sheyla Harris MD [address] [place] [address] PCP - General Family Medicine 10/16/18 Madison Epstein [address] [place] [address] Gynecology 10/30/24 Meka García OD [address] [place] [address] Optometry 10/30/24 Sheryl Marti MD [address] [place] [address] Hematology and Oncology 12/13/24 Joy James, BrittanyD [address] [place] [address] [phone] Pharmacist Internal Medicine 12/31/24 documented as of this encounter
--- OUTSIDE RECORDS SUMMARY | 2025-01-13 16:25 | XMS_ITS | Encounter Summary ---
Author Organization [facility] Address [address] [place] [address] Phone Care Team Providers Care Powerplant Operator Name Role Phone Sheyla Harris MD Primary Care Provider U keya Encounter Details Date Type Department Care Team (Late st Contact Info) Description 09/01/2022 Documentation Only [facility] [address] [place] [address] [place] [address] Azra Coreas Social History Tobacco [...] on filedocumented in this encounter Care Teams Powerplant Operator Relationship Specialty Start Date End Date Sheyla Harris MD PCP - General Family Medicine 04/19/22 documented as of this encounter
--- OUTSIDE RECORDS SUMMARY | 2025-01-13 16:25 | XMS_ITS | Encounter Summary ---
Author Organization [facility] Address [address] [facility] [address] [place] [address] Phone Care Team Providers Care Planner Intern Name Role Phone Sheyla Harris MD Primary Care Provider U navailable Reason for Visit * Reason Comments Med Refill Encounter Details Date Type Department Care Team (Late st Contact Info) Description 11/12/2024 Refill [facility] [address] [facility] [address] [place] [address] Jeff Carroll MD [address] [facility] [address] [place] [address] Social History Tobacco Use Types [...] on filedocumented in this encounter Care Teams Planner Intern Relationship Specialty Start Date End Date Sheyla Harris MD PCP - General Family Medicine 04/19/22 documented as of this encounter
--- OUTSIDE RECORDS SUMMARY | 2025-01-13 16:25 | XMS_ITS | Encounter Summary ---
Author Organization [employer] Address [address] [facility] 7t [place] [address] Care Team Providers Care Policy Adviser Name Role Phone Sheyla Harris MD Primary Care Provider [phone] [place] Epstein Unavailable Meka García OD Unavailable Sheryl Marti MD Unavailable [phone] Joy James PharmD Unavailable [phone] Encounter Details Date Type Department Care Team (Late Contact Info) Description 11/22/2022 Abstract [facility] MEDICINE [address] [place], [place] [phone] Sheyla Harris MD [address] [place], [place] [phone] Social History Tobacco Use Types Packs/Day Years [...] Upcoming Encounters Date Type Department Care Team ([facility] Contact Info) Description 01/15/2025 10:30 AM EDT Medication Management [facility] MEDICINE [address] [place] [address] Joy James, PharmD [address] [place] [address] 02/17/2025 11:00 AM EDT Office Visit [facility] [address] [place] [address] Sheyla Harris MD [address] [place] [address] documented as of this encounter Procedures Procedure [...] on filedocumented in this encounter Care Teams Policy Adviser Relationship Specialty Start Date End Date Sheyla Harris MD [address] [place] [address] PCP - General Family Medicine 10/16/18 [place] Epstein [address] [address] Gynecology 10/30/24 Meka García OD [address] [place] [address] Optometry 10/30/24 Sheryl Marti MD 575 [place] [address] Hematology and Oncology 12/13/24 Joy James, Elena [address] [place] [address] Pharmacist Internal Medicine 12/31/24 documented as of this encounter
--- OUTSIDE RECORDS SUMMARY | 2025-01-13 16:25 | XMS_ITS | Clinical Summary ---
Author Organization [facility] Facility Address [address] [place] [address] Care Team Providers Care Mold Press Operator Name Role Phone Sheyla Harris MD Primary Care Provider U navailable Allergies No known active allergies Medications omeprazole (PriLOSEC) [address] capsule TAKE 1 CAPSULE BY MOUTH EVERY DAY BEFORE A MEAL NEEDED 2 Active Vitamin D, Ergocalciferol, 24364 units capsule Take 1,000 mg by mouth [...] Of [address] [place] [phone] Jeff Carroll MD from Last 3 Months [...] Recently Relevant to Health Maintenance [place] Care Teams Mold Press Operator Relationship Specialty Start Date End Date Steven, Sheyla Jackson MD PCP - General Family Medicine 04/19/22
--- OUTSIDE RECORDS SUMMARY | 2025-01-13 16:25 | XMS_ITS | Encounter Summary ---
Author Organization [employer] Address [address] [facility] 7t [place] [address] Care Team Providers Care Digital Coordinator Name Role Phone Sheyla Harris MD Primary Care Provider [phone]- [phone] [place] Unavailable Meka García OD Unavailable [phone] Sheryl Marti MD Unavailable [phone] Joy James PharmD Unavailable [phone] Encounter Details Date Type Department Care Team (Late st Contact Info) Description 04/07/2024 Abstract [facility] MEDICINE [address] [place], [place] [phone] Sheyla Harris MD 230 [place], [place] [phone] Social History Tobacco Use Types Packs/Day Years [...] Care Team (Late st Contact Info) Description 01/15/2025 10:30 AM EDT Medication Management [facility] MEDICINE [address] [place] [phone] Joy James PharmD [address] [place] [address] 02/17/2025 11:00 AM EDT Office Visit [facility] MED[facility] [address] [place] [address] Sheyla Harris MD [address] [place] [address] documented as of this encounter Procedures Procedure Name Priority Date/Time Associated Diagnosis Comments HM FIT DNA/COLOGUARD CANCER SCREENING Routine 02/17/2024 documented in this encounter Results * FIT DNA/Cologuard Cancer Screening (02/17/2024) Cologuard Cancer Screen Negative Stool Historical Provider HEALTH MAINTENANCE Final Result documented in this encounter Visit Diagnoses Not on filedocumented in this encounter Care Teams Digital Coordinator Relationship Specialty Start Date End Date Sheyla Harris MD 230 [place] [address] PCP - General Family Medicine 10/16/18 [place] Epstein [address] [address] Gynecology 10/30/24 Meka García OD [address] [place] [address] Optometry 10/30/24 Sheryl Marti MD 575 [place] [address] Hematology and Oncology 12/13/24 Joy James, BrittanyD 230 [place] [address] Pharmacist Internal Medicine 12/31/24 documented as of this encounter
--- OUTSIDE RECORDS SUMMARY | 2025-01-13 16:25 | XMS_ITS | Encounter Summary ---
Author Organization [employer] Address [address] [facility] 7t [place] [address] Care Team Providers Care Naval Police Coxswain Name Role Phone Sheyla Harris MD Primary Care Provider [phone] [place] Unavailable Meka García OD Unavailable Sheryl Marti MD Unavailable [phone] Joy James PharmD Unavailable Encounter Details Date Type Department Care Team (Late st Contact Info) Description 11/14/2024 Orders Only [facility] MEDICINE [address] [place], [place] [phone] Sheyla Harris MD 230 [place], [place] [phone] Type 2 diabetes mellitus without complication, without long-term current use of insulin ([facility]) (Primary Dx); Iron deficiency anemia, unspecified iron [...] the past 12 months, has t he [employer], gas, oil or water [employer] threatened to shut off services in your [...] Description 01/15/2025 10:30 AM EDT Medication Management [facility] [address] [place] [phone] Joy James, PharmD [address] [place] [address] 02/17/2025 11:00 AM EDT Office Visit [facility] [address] [place] [address] Sheyla Harris MD [address] [place] [address] documented as of this encounter Procedures Procedure Name Priority Date/Time Associated Diagnosis Comments ALBUMIN, RANDOM URINE W/CREATININE Routine 11/15/2024 9:12 AM EST Type 2 diabetes mellitus without complication, without long-term current use of insulin ([facility]) CBC WITH AUTO DIFFERENTIAL Routine 11/14/2024 9:18 [...] without long-term current use of insulin (CMS/HCC) PATHOLOGIST REVIEW - CBC Routine 11/14/2024 1:49 PM EST Type 2 [...] complication, without long-term current use of insulin ([facility]) LIPID PANEL, STANDARD Routine 11/14/2024 1:49 PM EST Type 2 diabetes mellitus without complication, without long-term current use of insulin ([facility]) BASIC METABOLIC PANEL Routine 11/14/2024 1:49 PM EST Type 2 diabetes mellitus without complication, without long-term current use of insulin ([facility]) documented in this encounter Results * (ABNORMAL) Albumin, Random Urine W/Creatinine (11/15/2024 9:12 AM EST) Creatinine, Urine 56.65 mg/dL [facility] Microalbumin Urine 73.0 mg/L [facility] Microalbum Creatinine Ratio Ur 128.8(H) <30 ug/mg cr [facility] Comment:Albumin/Creatinine R atio Reference Ranges: Normal: < 30 ug/mg creatinine Microalbuminuria: 30 - 300 ug/mg creatinineClinical Albuminuria: > 300 ug/mg creatinine Urine 11/15/2024 9:12 AM EST 11/15/2024 11:37 AM EST us Sheyla Harris MD LAB URINE ORDERABLES Final Result [facility] [address] [place] [phone] * (ABNORMAL) CBC auto differential (11/14/2024 9:18 PM EST) White Blood Count 6.8 4.8 - 10.8 X10*3/uL [facility] Red Blood Count 4.33 4.20 - 5.50 X10*6/uL [facility] Hemoglobin 6.8(LL) 12.0 - 16.0 g/dl [facility] Comment:Results of HGB cook d to and read back by Marie 01/30/25 at 2128 by YOLY. Hematocrit 25.6(L) 37.0 - 47.0 % [facility] Mean Corpuscular Volume 59.1(L) 80.0 - 98.0 fL [facility] Mean Corpuscular Hemoglobin 15.7(L) 27.0 - 33.0 pg [facility] Mean Corpuscular HGB Conc 26.6(L) 31.0 - 35.0 g/dl [facility] Red Cell Distribution Width 20.5(H) 11.0 - 16.0 % [facility] Platelet Count 195 160 - 400 X10*3/uL [facility] Mean Platelet Volume TNP 9.4 - 12.3 fL [facility] Neutrophils Percent Auto 59.9 45 - 73 % [facility] Imm Gran Pct Auto 0.3 0.0 - 0.4 % [facility] Lymphocytes Percent Auto 29.3 20 - 40 % [facility] Monocytes Percent Auto 7.5 2 - 11 % [facility] Eosinophils Percent Auto 2.3 0 - 4 % [facility] Basophils Percent Auto 0.7 0 - 2 % [facility] NRBC Pct Auto 0.0 0.0 - 0.2 /100WBC [facility] Neutrophils Absolute Auto 4.1 2.0 - 8.3 x10*3/uL [facility] Imm Gran Abs Auto 0.02 0.00 - 0.03 X10*3/uL [facility] Lymphocytes Absolute Auto 2.0 1.2 - 4.9 X10*3/uL [facility] Monocytes Absolute Auto 0.5 0.1 - 1.2 X10*3/uL [facility] Eosinophils Absolute Auto 0.2 0.0 - 0.4 X10*3/uL [facility] Basophils Absolute Auto 0.1 0.0 - 0.2 X10*3/uL [facility] NRBC Abs Auto 0.000 0.0 - 0.012 X10*3/uL [facility] 11/14/2024 9:18 PM EST 11/14/2024 9:21 PM EST us Generic External Data Provider LAB BLOOD ORDERAB LES Final Result Performing Organization Address [facility] Co de Phone Number [facility] [address] [place] [address] [phone] * Red blood count (11/14/2024 8:45 PM EST) Red Blood Cells: [id number] OP RC TRANSFUSED 11/14/242157 [id number] OP RC TRANSFUSED 11/15/24 0333 [facility] 11/14/2024 8:45 PM EST 11/14/2024 8:50 PM EST Generic External Data Provider LAB BLOOD ORDERAB LES Final Result Performing Organization Address [facility] Phone Number [facility] [address] [place] [phone] * Type and screen (11/14/2024 8:45 PM EST) Blood Type OP [facility] Comment:RH IMMUNE GLOBULIN I NDICATED: NO Antibody Screen NEGATIVE [facility] 11/14/2024 8:45 PM EST 11/14/2024 8:50 PM EST Narrative [facility] - 11/15/2024 6:23 AM EST Results at Issue Units as of 11/14/242157 ...Test View Group: Most Recent HGB ?? HCT Results ?LABORATORYDate ?Time Test ?Result ?Flag Normal Range11/14/242117 HGB ?6.8 ?*L ?? 12.0-16.0 g/dlResults of HGB called to and read back by Marie 11/14/24 at 2128 by YOLY.11/14/242117 HCT ?25.6 ?L ?? 37.0-47.0 % Results at Issue Units as of 11/15/24 0334 ...Test View Group: Most Recent HGB ?? HCT Results ?LABORATORYDate ?Time Test ?Result ?Flag Normal Range11/14/242117 HGB ?6.8 ?*L ?? 12.0-16.0 g/dlResults of HGB called to and read back by Marie 11/14/24 at 2127 by YOLY.11/14/242117 HCT ?25.6 ?L ?? 37.0-47.0 % No Generic External Data Provider LAB BLOOD BANK TE ST ORDERABLES Final Result Performing Organization Address [facility]/ZIP Co de Phone Number [facility] [address] [place] [address] [phone] * Glucose, Whole Blood (11/14/2024 8:41 PM EST) Glucose, Whole Blood 102 60 - 115 mg/dL [facility] Comment:METER #: [id number] 11/14/2024 8:41 PM EST 11/14/2024 8:44 PM EST Generic External Data Provider LAB BLOOD ORDERAB LES Final Result Performing Organization Address [facility] Co de Phone Number [facility] [address] [place] [phone] * Pathologist Review - CBC (11/14/2024 1:49 PM EST) Pathologist Review - CBC SEE NOTE [facility] Comment:- Microcytic, hypoch romic anemia with anisocytosis: consideriron deficiency.Reviewed by Autumn Balderas MD 11/14/2024 1:49 PM EST 11/14/2024 3:58 PM EST Sheyla Harris MD LAB BLOOD ORDERABLES Final Result Performing Organization Address [facility]/ZIP Co de Phone Number [facility] [address] [place] [phone] * Slide Review (11/14/2024 1:49 PM EST) Slide Review VERIFIED [facility] 11/14/2024 1:49 PM EST 11/14/2024 3:58 PM EST Sheyla Harris MD LAB BLOOD ORDERABLES Final Result Performing Organization Address [facility] Co de Phone Number [facility] [address] [place] [phone] * TSH with Reflex to Free T4 (11/14/2024 1:49 PM EST) TSH reflex Free T4 0.59 0.32 - 4.0 uIU/mL [facility] Blood 11/14/2024 1:49 PM EST 11/14/2024 3:58 PM EST Sheyla Harris MD LAB BLOOD ORDERABLES Final Result Performing Organization Address [facility] Co de Phone Number [facility] [address] [place] [phone] * Vitamin B12 (11/14/2024 1:49 PM EST) Vitamin B12 422 200 - 900 pg/mL [facility] Comment:NORMAL 200-900 PG/ML INDETERMINATE 160-199 PG/ML DEFICIENT < 160 PG/ML Blood Venous blood specimen / Unknown 11/14/2024 1:49 PM EST 11/14/2024 3:58 PM EST Sheyla Harris MD LAB BLOOD ORDERABLES Final Result Performing Organization Address [facility]/ZIP Co de Phone Number [facility] [address] [place] [phone] * (ABNORMAL) Iron And Total Iron Binding Capacity (11/14/2024 1:49 PM EST) Iron 13(L) 30 - 160 mcg/dL [facility] Total Iron Binding Capacity 458(H) 228 - 428 mcg/dL [facility] Percent Iron Saturation 3(L) 15 - 50 % [facility] Unsaturated Iron Binding 445 ug/dL [facility] Blood Venous blood specimen / Unknown 11/14/2024 1:49 PM EST 11/14/2024 3:58 PM EST Sheyla Harris MD LAB BLOOD ORDERABLES Final Result Performing Organization Address [facility]/ZIP Co de Phone Number [facility] [address] [place] [phone] * (ABNORMAL) Ferritin (11/14/2024 1:49 PM EST) Ferritin 9(L) 10 - 250 ng/mL [facility] Blood Venous blood specimen / Unknown 11/14/2024 1:49 PM EST 11/14/2024 3:58 PM EST Sheyla Harris MD LAB BLOOD ORDERABLES Final Result Performing Organization Address [facility]/ZIP Co de Phone Number [facility] [address] [place] [phone] * (ABNORMAL) CBC auto differential (11/14/2024 1:49 PM EST) White Blood Count 5.3 4.8 - 10.8 X10*3/uL [facility] Red Blood Count 4.31 4.20 - 5.50 X10*6/uL [facility] Hemoglobin 6.8(LL) 12.0 - 16.0 g/dl [facility] Comment:Results of HGB cook d to and read back by ESPINOZA Tesfaye 11/14/24 at 1627 by YOLY. Hematocrit 26.0(L) 37.0 - 47.0 % [facility] Mean Corpuscular Volume 60.3(L) 80.0 - 98.0 fL [facility] Mean Corpuscular Hemoglobin 15.8(L) 27.0 - 33.0 pg [facility] Mean Corpuscular HGB Conc 26.2(L) 31.0 - 35.0 g/dl [facility] Red Cell Distribution Width 21.1(H) 11.0 - 16.0 % [facility] Platelet Count 198 160 - 400 X10*3/uL [facility] Mean Platelet Volume TNP 9.4 - 12.3 fL [facility] Neutrophils Percent Auto 57.8 45 - 73 % [facility] Imm Gran Pct Auto 0.2 0.0 - 0.4 % [facility] Lymphocytes Percent Auto 29.3 20 - 40 % [facility] Monocytes Percent Auto 8.7 2 - 11 % [facility] Eosinophils Percent Auto 3.2 0 - 4 % [facility] Basophils Percent Auto 0.8 0 - 2 % [facility] NRBC Pct Auto 0.0 0.0 - 0.2 /100WBC [facility] Neutrophils Absolute Auto 3.1 2.0 - 8.3 x10*3/uL [facility] Imm Gran Abs Auto 0.01 0.00 - 0.03 X10*3/uL [facility] Lymphocytes Absolute Auto 1.6 1.2 - 4.9 X10*3/uL [facility] Monocytes Absolute Auto 0.5 0.1 - 1.2 X10*3/uL [facility] Eosinophils Absolute Auto 0.2 0.0 - 0.4 X10*3/uL [facility] Basophils Absolute Auto 0.0 0.0 - 0.2 X10*3/uL [facility] NRBC Abs Auto 0.000 0.0 - 0.012 X10*3/uL [facility] Blood Venous blood specimen / Unknown 11/14/2024 1:49 PM EST 11/14/2024 3:58 PM EST Sheyla Harris MD LAB BLOOD ORDERABLES Edite d Result - Final Performing Organization Address [facility]/ZIP Co de Phone Number [facility] [address] [place] [address] [phone] * (ABNORMAL) Basic Metabolic Panel (11/14/2024 1:49 PM EST) Sodium 139 135 - 145 mmol/L [facility] Potassium 4.7 3.3 - 5.1 mmol/L [facility] Chloride 104 96 - 108 mmol/L [facility] Carbon Dioxide 27 22 - 29 mmol/L [facility] Anion Gap 13 12 - 20 [facility] Urea Nitrogen (BUN) 8(L) 9 - 16 mg/dL [facility] Creatinine, Serum 0.77 0.5 - 1.4 mg/dL [facility] Estimated Glomerular Filt Rate >60 [facility] Comment:Chronic Kidney Disea se: Estimated GFR < 60 mL/min/1.37v7Mysptz Kidney Disease: Estimated GFR < 15 mL/min/1.73m2 Glucose 104 60 - 115 mg/dL [facility] Calcium 9.4 8.4 - 10.2 mg/dL [facility] Blood Venous blood specimen / Unknown 11/14/2024 1:49 PM EST 11/14/2024 3:58 PM EST Sheyla Harris MD LAB BLOOD ORDERABLES Final Result Performing Organization Address [facility]/ZIP Co de Phone Number [facility] [address] [place] [phone] * (ABNORMAL) Hemoglobin A1c (11/14/2024 1:49 PM EST) Hemoglobin A1c 6.1(H) <6.0 % [facility] Comment:Hemoglobin A1C Refer ence Range Adults: 4.8 - 6.0 % Non diabetic: < 6.0 % Goal: < 7.0 %Additional Action Suggested: > 8.0 %Note: Hemoglobin A1c results are invalid for patients with abnormal amounts of HbF. Blood transfusions may impact the HbA1c concentration in the patient sample. Estimated Average Glucose 128 mg/dL [facility] Comment:eAG = Estimated ave rage glucose which is %A1C expressed asaverage glucose, using the formula of the O0H-VjrgcxaYekuvmj Glucose study (ADAG), Diabetes Care, Vol.31,#8,May. 2007 Blood Venous blood specimen / Unknown 11/14/2024 1:49 PM EST 11/14/2024 3:58 PM EST us Sheyla Harris MD LAB BLOOD ORDERABLES Final Result [facility] [address] [place] [phone] [phone] * (ABNORMAL) Lipid Panel, Standard (11/14/2024 1:49 PM EST) Triglycerides 161(H) <150 mg/dL [facility] Comment:Desirable Triglyceri de: less than 150 mg/dLBorderline High Triglyceride 150-199 mg/dLHigh Triglyceride: 200-499 mg/dLVery High Triglyceride: greater than or equal to 5OO mg/dL Cholesterol 103 <200 mg/dL [facility] Comment:Desirable Cholestero l: less than 200 mg/dLBorderline High Cholesterol: 200-239 mg/dLHigh Cholesterol: greater than 239 mg/dL LDL Cholesterol Calculated 42 <100 mg/dL [facility] Comment:Desirable LDL: less than 100 mg/dLNear Optimal/Above Optimal LDL: 110- 129 mg/dLBorderline High LDL: 130-159 mg/dLHigh LDL: 160-189 mg/dLVery High LDL: greater than or equal to 190 mg/dL HDL Cholesterol 29(L) >40 mg/dL [facility] Comment:Desirable HDL: great er than 40 mg/dL Note: This HDL assay may give artificially low results in patients with liver disease. Blood Venous blood specimen / Unknown 11/14/2024 1:49 PM EST 11/14/2024 3:58 PM EST Sheyla Harris MD LAB BLOOD ORDERABLES Final Result [facility] [address] [place] [address] [phone] * (ABNORMAL) Hepatic Function Panel (11/14/2024 1:49 PM EST) Bilirubin, Total 0.3 0.0 - 1.0 mg/dL [facility] Bilirubin, Direct 0.1 0.0 - 0.5 mg/dL [facility] Aspartate Amino Transferase 38(H) 5 - 31 U/L [facility] Alanine Aminotransferase 19 0 - 31 U/L [facility] Total Protein 7.7 6.5 - 8.0 g/dL [facility] Albumin Level 4.3 3.5 - 5.0 g/dL [facility] Alkaline Phosphatase 84 39 - 117 U/L [facility] Blood Venous blood specimen / Unknown 11/14/2024 1:49 PM EST 11/14/2024 3:58 PM EST Sheyla Harris MD LAB BLOOD ORDERABLES Final Result Performing Organization Address [facility]/ZIP Co de Phone Number [facility] [address] [place] [phone] documented in this encounter Visit Diagnoses Diagnosis Type 2 diabetes mellitus without complication, without long-term current use of insulin (CMS/HCC)- Primary Iron deficiency anemia, unspecified iron deficiency anemia type documented in this encounter Care Teams [employer] Coxswain Relationship Specialty Start Date End Date Sheyla Harris MD [address] [place] [address] PCP - General Family Medicine 10/16/18 [place] Epstein [address] [place] [phone] Gynecology 10/30/24 Meka García OD [address] [place] [phone] Optometry 10/30/24 Sheryl Marti MD [address] [place] [phone] Hematology and Oncology 12/13/24 Joy James, BrittanyD [address] [place] [address] Pharmacist Internal Medicine 12/31/24 documented as of this encounter
--- OUTSIDE RECORDS SUMMARY | 2025-01-13 16:25 | XMS_ITS | Encounter Summary ---
Author Organization [employer] Address [address] [place] [address] 7[address] [place] [address] Care Team Providers Care Collaborating Supervising Physician Name Role Phone Sheyla Harris MD Primary Care Provider [phone] [place] Unavailable Meka García OD Unavailable [phone] Sheryl Marti MD Unavailable [phone] Joy James PharmD Unavailable Reason for Visit * Reason Comments Med Refill Encounter Details Date Type Department Care Team (Late st Contact Info) Description 11/28/2022 Refill [facility] [address] [place], [place] [phone] Sheyla Harris MD [address] [place], [place] [phone] Anxiety Social History Tobacco Use Types Packs/Day [...] Description 01/15/2025 10:30 AM EDT Medication Management [facility] [address] [place] [address] Joy James, PharmD [address] [place] [address] 02/17/2025 11:00 AM EDT Office Visit [facility] [address] [place] [address] Sheyla Harris MD [address] [place] [address] documented as of this encounter Visit Diagnoses Diagnosis Anxiety Anxiety state, unspecified documented in this encounter Care Teams Collaborating Supervising Physician Relationship Specialty Start Date End Date Sheyla Harris MD [address] [place] [address] PCP - General Family Medicine 10/16/18 [place] Epstein [address] [place] [phone] Gynecology 10/30/24 Meka García OD [address] [place] [phone] Optometry 10/30/24 Sheryl Marti MD [address] [place] [address] Hematology and Oncology 12/13/24 Joy Jaems, BrittanyD [address] [place] [phone] Pharmacist Internal Medicine 12/31/24 documented as of this encounter
--- OUTSIDE RECORDS SUMMARY | 2025-01-13 16:25 | XMS_ITS | Encounter Summary ---
Author Organization [employer] Address [address] [place] [address] Care Team Providers Care Skip Load Driver Name Role Phone Sheyla Harris MD Primary Care Provider [phone]- [phone] Madison Epstein Unavailable Meka García OD Unavailable [phone] Sheryl Marti MD Unavailable [phone] Joy James PharmD Unavailable Reason for Visit * Reason Comments Med Refill Encounter Details Date Type Department Care Team ([facility] st Contact Info) Description 09/24/2024 Refill [facility] MEDICINE [address] [place], [place] [phone] Sheyla Harris MD [address] [place], [place] [phone] Social History Tobacco Use Types Packs/Day Years [...] Description 01/15/2025 10:30 AM EDT Medication Management [facility] MEDICINE [address] [place] [phone] Joy James, PharmD [address] [place] [phone] 02/17/2025 11:00 AM EDT Office Visit [facility] MEDICINE [address] [place] [phone] Sheyla Harris MD [address] [place] [phone] documented as of this encounter Visit Diagnoses Not on filedocumented in this encounter Care Teams Skip Load Driver Relationship Specialty Start Date End Date Sheyla Harirs MD [address] [place] [phone] PCP - General Family Medicine 10/16/18 Madison Epstein [address] [address] Gynecology 10/30/24 Meka García OD [address] [place] [phone] [phone] Optometry 10/30/24 Sheryl Marti MD [address] [place] [phone] Hematology and Oncology 12/13/24 Joy James, BrittanyD [address] [place] [address] Pharmacist Internal Medicine 12/31/24 documented as of this encounter
--- OUTSIDE RECORDS SUMMARY | 2025-01-13 16:25 | XMS_ITS | Clinical Summary ---
Author Organization [employer] Address [address] [place] [address] 7[address] [place] [address] Care Team Providers Care Supervisor Partial Denture Department Name Role Phone Sheyla Harris MD Primary Care Provider [phone] Madison Epstein Unavailable Meka García OD Unavailable [phone] Sheryl Marti MD Unavailable [phone] Joy James PharmD Unavailable Allergies No known active allergies Medications * This document contains information received from the source organization and may not represent a complete record from that organization. rosuvastatin (Crestor) 10 MG tabletIndication s:Type 2 diabetes mellitus without complication, without long-term current use of insulin (CMS/HCC),Dyslip idemia Take 1 tablet (10 mg) by mouth Once per day. 30 tablet 11 4 025 Active Blood Glucose Monitoring Suppl (FreeStyle [place] Lite) w/Device kitIndications:T ype 2 diabetes mellitus without complication, without long-term current use of insulin (CMS/HCC) Use to test blood sugar bid dx dm 1 kit 4 Active glucose blood (FREESTYLE LITE) test stripIndications :Type 2 diabetes mellitus without complication, without long-term current use of insulin (CMS/HCC) Use bid. Dx diabetes 60 each 11 4 Active FreeStyle lancetsIndicatio ns:Type 2 diabetes mellitus without complication, without long-term current use of insulin (CMS/HCC) 1 each by Other route 2 times daily. Use bid, dx type 2 diabetes 60 each 4 Active Alcohol Swabs (Alcohol Pads) 70 % padsIndications: Type 2 diabetes mellitus without complication, without long-term current use of insulin ([facility]) Use as directed on skin 100 each 4 Active sennosides (Senokot) 8.6 MG tabletIndication s:Iron deficiency anemia, unspecified iron deficiency anemia type 1-2 tabs po nightly prn constipation 60 tablet 11 4 Active docusate sodium (Colace) 100 MG capsuleIndicatio ns:Iron deficiency anemia, unspecified iron deficiency anemia type Take 1 tab po bid prn constipation 60 capsule 4 Active metFORMIN, OSM, (Fortamet) 500 MG 24 hr tabletIndication s:Type 2 Diabetes Mellitus Take 1 tablet (500 mg) by mouth Once per day. Do not crush, chew, or split. 90 tablet 3 4 025 Active dextran 70-hypromellose (artificial tears) 0.1-0.3 % ophthalmic solutionIndicati ons:Dry eyes, bilateral Administer 1 drop into both eyes if needed in the morning, at noon, and at bedtime for dry eyes. 15 mL 3 4 025 Active lisinopril (Prinivil) 20 MG tabletIndication s:Essential (primary) hypertension Take 1 tablet (20 mg) by mouth Once per day. 90 tablet 1 5 026 Active nicotine polacrilex (Nicorette) 2 MG gumIndications:S moking Chew and park 1 gum every 1-2 hours as needed in place of cigarette 100 each 3 5 Active Lancet Device miscIndications: Type 2 diabetes mellitus without complication, without long-term current use of insulin ([facility]) 1 each 2 times daily. Use to check blood sugar twice per day 1 each 5 Active amLODIPine (Norvasc) 10 MG tabletIndication s:Essential (primary) hypertension Take 1 tablet (10 mg) by mouth Once per day. 30 tablet 11 5 026 Active ferrous sulfate 325 (65 Fe) MG EC tabletIndication s:Iron deficiency anemia, unspecified iron deficiency anemia type TAKE 1 TABLET BY MOUTH TWICE A DAY WITH FOOD DONT CRUSH OR CHEW OR SPLIT 180 tablet 1 5 Active omeprazole (PriLOSEC) [address] Dominik ns:Gastroesophag eal reflux disease, unspecified whether esophagitis present TAKE 1 CAPSULE BY MOUTH EVERY DAY BEFORE A MEAL NEEDED 90 capsule 5 Active hydroCHLOROthiaz jose alejandro (HYDRODiuril) 25 MG tablet Take 1 tablet (25 mg) by mouth Once per day. 30 tablet 11 5 026 Active Active Problems Problem Noted Date Diagnosed Date Anxiety 11/19/2024 Overview (11/19/2024): -referred to behavior prescriber 11/19/24 Dietary counseling 11/15/2024 Assessment & Plan (12/13/2024 10:56 AM EST): Dietary Recommendations: Fruits, vegetables, whole grains, protein foods, and fat-free or low-fat dairy products are healthy choices. Eat different types of protein foods in your diet. This can include seafood, lean meats, poultry, beans, peas, lentils, nuts, seeds, soy products, and eggs. Limit foods and beverages higher in added sugars, saturated fat, and sodium. Assessment & Plan (11/15/2024 10:20 AM EST): Dietary Recommendations: Fruits, vegetables, whole grains, protein foods, and fat-free or low-fat dairy products are healthy choices. Eat different types of protein foods in your diet. This can include seafood, lean meats, poultry, beans, peas, lentils, nuts, seeds, soy products, and eggs. Limit foods and beverages higher in added sugars, saturated fat, and sodium. Exercise counseling 11/15/2024 Assessment & Plan (12/13/2024 10:56 AM EST): Exercise Recommendations: At least 150 minutes of moderate-intensity physical activity per week, or an equivalent combination of moderate- and vigorous-intensity activity Assessment & Plan (11/15/2024 10:20 AM EST): Exercise Recommendations: At least 150 minutes of moderate-intensity physical activity per week, or an equivalent combination of moderate- and vigorous-intensity activity Skin tag 11/15/2024 Overview (11/15/2024): Reports multiple skin tags that are bothersome. No acute symptoms or changes to skin tag appearance, shape or size. Removed 1 skin tag 11/15/24 with scalpel. Assessment & Plan (11/15/2024 10:46 AM EST): Reports multiple skin tags that are bothersome. No acute symptoms or changes to skin tag appearance, shape or size. Removed 1 skin tag 11/15/24 with scalpel. Cardiac risk counseling 09/10/2024 Overview (09/10/2024): Calculated [...] nutrition interventions discussed. Type 2 diabetes mellitus, [facility] long-term current use of insulin 02/28/2024 Overview (12/13/2024): Diabetes diagnosed 02/28/24 based on elevated A1c 6.8 Lab Results Component Value Date HGBA1C 6.1 (H) 11/14/2024 HGBA1C 6.8 (H) 01/19/2024 HGBA1C 6.2 (H) 09/28/2021 Lab Results Component Value Date MICROALBUR 73.0 11/15/2024 CREATININE 0.77 11/14/2024 -Curtis/Arb: none -Statin therapy: rosuvastatin 10mg daily started 02/28/24 -Diabetic eye exam: done 08/06/24 -Diabetic foot exam: normal, risk cat 0 02/28/24 -Continue lifestyle modifications -Semiglutide 0.25 weekly denied twice -followed by RN type 2 diabetes team - metformin ER 500mg daily started 05/02/24 Assessment & Plan (11/15/2024 10:25 AM EST): Diabetes diagnosed 02/28/24 based on elevated A1c [...] 02/28/24 -Diabetic eye exam: referral placed for [facility] 02/28/24 -Diabetic foot exam: normal, risk cat [...] cm. Fibroid characteristics: Heterogeneous echotexture. Perimenopause 01/10/2024 Overweight with body mass in dex (BMI) of 29 to 29.9 in adult 12/06/2023 Overview (11/15/2024): Discussed weight, diet, exercise with patient in relation to health conditions. Used motivational interviewing to illicit change talk and established initial goals with patient. -offered Semaglutide, pt declined twice Assessment & Plan (12/13/2024 11:01 AM EST): Discussed weight, diet, exercise with patient in relation to health conditions. Used motivational interviewing to illicit change talk and established initial goals with patient. -offered Semaglutide, pt declined twice Assessment & Plan (11/15/2024 10:20 AM EST): Discussed weight, diet, exercise with patient in relation to health conditions. Used motivational interviewing to illicit change talk and established initial goals with patient. -offered Semaglutide, pt declined twice Assessment & Plan (12/06/2023 7:46 PM EST): -Advised pt to improve diet and exercise,discussed healthy life style -discussed claims administrator referral but refusing Colon cancer screening 11/22/2023 Overview (12/13/2024): -per oncology note has apt in future with GI. Need to confirm with pt at follow up -referred on 12/06/2023 for colonoscopy -pt reports had cologuard but not sure of the results, reports insurance would not cover colonoscopy -Cologuard negative 01/19/24 Assessment & Plan (02/28/2024 2:55 PM EDT): [...] follow up -referred on 12/06/2023 for colonoscopy Other specified health status 08/26/2023 Overview (11/15/2024): -next physical exam due after 11/15/25 -eye care facilitated by referral placed to [facility] 02/28/24 -dental home encouraged. -health care proxy given and filed 11/15/24 Assessment & Plan (11/15/2024 10:06 AM EST): -next physical exam due after 11/15/25 -eye care facilitated by referral placed to [facility] 02/28/24 -dental home encouraged. -health care proxy given and filed 11/15/24 Assessment & Plan (12/06/2023 7:54 PM EST): -pap smear 03/2022 neg/neg -Mammo 2018 BIRADS-1 neg-referred today for MM -colonoscopy : never-referred today -vaccines MMRx1, COVID 19 x4 -last booster advised but refused today , tdap 2012 today booster , Flu vaccine today . [...] her own Iron deficiency anemia 09/24/2022 Overview (01/07/2025): Lab Results Component Value Date FERRITIN 9 (L) 11/14/2024 FERRITIN 11 01/19/2024 HGB 6.8 (LL) 11/14/2024 HGB 6.8 (LL) 11/14/2024 HGB 9.1 (L) 09/28/2021 HGB 11.2 (L) 04/05/2021 HEMATOCRIT 30.5 (L) 09/28/2021 HEMATOCRIT 35.7 04/05/2021 Has hha apt for heavy menses March 2024, seen [...] by mouth. -she will be following with hha and GI in the near future. -Hgb 6.8 on 11/14/24, sent to ED to get transfusion. Got transfused 2 units. -referred to Hematology 11/15/24 -pt agrees to start iron supplement, although had upset stomach from previous attempts, she has them at home. -Seen by Dr. Marti 01/16/25 and IV iron scheduled -stool cards neg x 3 12/2024 Assessment & Plan (12/13/2024 11:00 AM EST): Lab Results Component Value Date FERRITIN 9 (L) 11/14/2024 FERRITIN 11 01/19/2024 HGB 6.8 (LL) 11/14/2024 HGB 6.8 (LL) 11/14/2024 HGB 9.1 (L) 09/28/2021 HGB 11.2 (L) 04/05/2021 HEMATOCRIT 30.5 (L) 09/28/2021 HEMATOCRIT 35.7 04/05/2021 Has hha apt for heavy menses March 2024, seen [...] by mouth. -she will be following with hha and GI in the near future. -Hgb 6.8 on 11/14/24, sent to ED to get transfusion. Got transfused 2 units. -referred to Hematology 11/15/24 -pt agrees to start iron supplement, although had upset stomach from previous attempts, she has them at home. -has upcoming appt with Hematology on 12/17/24, given hemoccult card 12/13/24 Assessment & Plan (11/15/2024 10:26 AM EST): Lab Results Component Value Date FERRITIN 9 (L) 11/14/2024 FERRITIN 11 01/19/2024 HGB 6.8 (LL) 11/14/2024 HGB 6.8 (LL) 11/14/2024 HGB 9.1 (L) 09/28/2021 HGB 11.2 (L) 04/05/2021 HEMATOCRIT 30.5 (L) 09/28/2021 HEMATOCRIT 35.7 04/05/2021 Has hha apt for heavy menses March 2024, seen [...] by mouth. -she will be following with hha and GI in the near future. -Hgb 6.8 on 11/14/24, sent to ED to get transfusion. Got transfused 2 units. -referred to Hematology 11/15/24 -pt agrees to start iron supplement, although had upset stomach from previous attempts, she has them at home. Assessment & Plan (02/28/2024 2:56 PM EDT): Lab Results Component Value Date FERRITIN 11 01/19/2024 HGB 9.8 (L) 01/19/2024 HGB 10.3 (L) 12/23/2022 HGB 9.1 (L) 09/28/2021 HGB 11.2 (L) 04/05/2021 HEMATOCRIT 30.5 (L) 09/28/2021 HEMATOCRIT 35.7 04/05/2021 Has hha apt for heavy menses March 2024, seen [...] by mouth. -she will be following with hha and GI in the near future. -return to hematology in 4 months Assessment & Plan (01/10/2024 3:57 PM EDT): Lab Results Component Value Date HGB 10.3 (L) 12/23/2022 HGB 10.3 (L) 12/06/2022 HGB 9.1 (L) 09/28/2021 HGB 11.2 (L) 04/05/2021 HEMATOCRIT 30.5 (L) 09/28/2021 HEMATOCRIT 35.7 04/05/2021 -referral to loan manager to get reestablished 01/10/2024 Assessment & Plan (12/06/2023 7:45 PM EST): She received IV iron between October until December 2022 received 6 doses. -plan was to f up w her Gis Administrator in 6 mo after last apt -referred today for pelvic/TV US -referred to FINANCE LEAD -check CBC ,iron panel -advised pt to resume iron daily, if significant low will call pt to advise to reschedule apt w her Gis Administrator Essential (primary) hypertension 03/29/2022 Overview (12/13/2024): Goal </= 130/80. On 11/14/24 BP was elevated, ordered labs, potassium normal. She is asymptomatic today in regards to chest pain, shortness of breath, headache, vision changes. Re- start lisinopril 20mg daily. -lisinopril (Prinivil) 20 MG 11/14/24 On 11/15/24 BP still elevated, will start on Amlodipine. -start Amlodipine (Norvasc) 5 MG 11/15/24, increased to 10mg 11/19/24 -referred to [facility] with our YOLI Parker 11/15/24 On 12/13/24 BP still elevated >140/80 -start hydroCHLOROthiazide (HYDRODiuril) 25 MG 12/13/24 -continue following with Collaborative Drug Therapy Managment Program with our YOLI Parker. -given BP log 12/13/24 Assessment & Plan (12/13/2024 10:59 AM EST): Goal </= 130/80. On 11/14/24 BP was elevated, ordered labs, potassium normal. She is asymptomatic today in regards to chest pain, shortness of breath, headache, vision changes. Re- start lisinopril 20mg daily. -lisinopril (Prinivil) 20 MG 11/14/24 On 11/15/24 BP still elevated, will start on Amlodipine. -start Amlodipine (Norvasc) 5 MG 11/15/24, increased to 10mg 11/19/24 -referred to Collaborative Drug Therapy Managment Program with our YOLI Parker 11/15/24 On 12/13/24 BP still elevated >140/80 -start hydroCHLOROthiazide (HYDRODiuril) 25 MG 12/13/24 -continue following with Collaborative Drug Therapy Managment Program with our YOLI Parker. -given BP log 12/13/24 Assessment & Plan (11/15/2024 10:27 AM EST): Goal </= 130/80. On 11/14/24 BP was elevated, ordered labs, potassium normal. She is asymptomatic today in regards to chest pain, shortness of breath, headache, vision changes. Re- start lisinopril 20mg daily. -lisinopril (Prinivil) 20 MG 11/14/24 On 11/15/24 BP still elevated, will start on Amlodipine. -Start Amlodipine (Norvasc) 5 MG 11/15/24 -referred to Collaborative Drug Therapy Managment Program with our PharmDYOLI 11/15/24 Assessment & Plan (02/28/2024 2:46 PM EDT): -Blood pressure is at goal -Continue lifestyle modifications -Continue current medications Assessment & Plan (01/10/2024 4:00 PM EDT): -Blood pressure is at goal -Continue lifestyle modifications -Continue current medications Assessment & Plan (12/06/2023 7:47 PM EST): Controlled BP Referred to ophthalmology today -continue lisinopril 20mg daily Dyslipidemia 03/29/2022 Overview (12/13/2024): Lab Results Component Value Date CHOL 103 11/14/2024 CHOL 216 (H) 01/19/2024 TRIG 161 (H) 11/14/2024 TRIG 224 (H) 01/19/2024 HDL 29 (L) 11/14/2024 HDL 43 01/19/2024 LDLCHOLCAL 42 11/14/2024 LDLCHOLCAL 129 (H) 01/19/2024 -continue lifestyle modification -rosuvastatin 10mg started 02/28/24 -doing well, continue medications as above. Assessment & Plan (12/13/2024 10:50 AM EST): Lab Results Component Value Date CHOL 103 11/14/2024 CHOL 216 (H) 01/19/2024 TRIG 161 (H) 11/14/2024 TRIG 224 (H) 01/19/2024 HDL 29 (L) 11/14/2024 HDL 43 01/19/2024 LDLCHOLCAL 42 11/14/2024 LDLCHOLCAL 129 (H) 01/19/2024 -continue lifestyle modification -rosuvastatin 10mg started 02/28/24 -doing well, continue medications as above. Assessment & Plan (11/15/2024 10:26 AM EST): Lab Results Component Value Date CHOL 103 [...] cervix 08/29/2013 Tobacco dependence syndrome 08/29/2013 Overview (12/13/2024): -Cigg/day: down to half a pack per day, down from 1 ppd -Age started: 17 y.o. -Total years smoking: > 20 -Pack year history: > 20 Encouraged smoking cessation resources such as pharmacomtherapy, [facility] smoking cessation group, and [facility] pharmacy smoking cessation clinic. Discussed USPSTF [...] using tobacco patch and start taking Chantix -12/13/24 discussed goal of 6 cigarettes and pt will try only keeping 6 cigarettes in her pack at a time and remove the rest. Assessment & Plan (12/13/2024 10:51 AM EST): -Cigg/day: down to half a pack per day, down from 1 ppd -Age started: 17 y.o. -Total years smoking: > 20 -Pack year history: > 20 Encouraged smoking cessation resources such as pharmacomtherapy, [facility] smoking cessation group, and [facility] pharmacy smoking cessation clinic. Discussed USPSTF [...] using tobacco patch and start taking Chantix -12/13/24 discussed goal of 6 cigarettes and pt will try only keeping 6 cigarettes in her pack at a time and remove the rest. Assessment & Plan (11/15/2024 10:19 AM EST): -Cigg/day: down to half a pack per day, down from 1 ppd -Age started: 17 y.o. -Total years smoking: > 20 -Pack year history: > 20 Encouraged smoking cessation resources such as pharmacomtherapy, [facility] smoking cessation group, and [facility] pharmacy smoking cessation clinic. Discussed USPSTF [...] as pharmacomtherapy, [facility] smoking cessation group, and [facility] pharmacy smoking cessation clinic. Discussed USPSTF [...] mg nicotine gums prn -f w PCP Resolved Problems Problem Noted Date Diagnosed Date Resolved Date Moderate recurrent major depression 03/29/2022 10/30/2024 Assessment & Plan (12/06/2023 7:46 PM EST): PHQ9: 11 ,JAYLYN 15 ,no SI ,denies hallucinations nor dago -Refuse BH offered today -may need to consider antidepressants -pt will f w PCP in next 4 weeks Chronic rhinitis 04/04/2012 12/13/2024 Encounters * This document contains information received from the source organization and may not represent a complete record from that organization. Date Type Department Care Team Description 01/03/2025 Telephone [facility] [address] [place] [phone] Magaly Maynard RN Results 12/31/2024 1:00 PM EDT Telemedicine [facility] [address] [place] [id number] Joy James PharmD Essential (primary) hypertension (Primary Dx) 12/31/[address] [address] Sheyla Harris MD 12/27/20[address] [facility] () [address] [phone] Provider, Population Health Generic 12/13/2024 10:30 AM EST Office Visit [address] [address] Sheyla Harris MD Essential (primary) hypertension (Primary Dx); Iron deficiency anemia, unspecified iron deficiency anemia type; Overweight with body mass index (BMI) of 29 to 29.9 in adult; Dyslipidemia; Tobacco dependence syndrome; Dietary counseling; Exercise counseling 12/13/2024 Travel 12/10/2024 Patient Outreach [address] [address] Sheyla Harris MD Pre-visit Planning (Pre-visit planning - LVM ) 12/09/[address] [address] Ban Coreas MA chartprep 11/25/[address] [address] Sheyla Harris MD Iron deficiency anemia, unspecified iron deficiency anemia type; Gastroesophageal reflux disease, unspecified whether esophagitis present 11/19/2024 Orders Only [facility] [address] [place] [phone] Sheyla Harris MD Essential (primary) hypertension (Primary Dx); Anxiety 11/18/[address] [address] Sheyla Harris MD Call Back Request 11/18/[address] [address] Sheyla Harris MD Hospital Follow-up 11/15/2024 10:00 AM EST Office Visit [address] [address] Sheyla Harris MD Type 2 diabetes mellitus without complication, without long-term current use of insulin ([facility]) (Primary Dx); Iron deficiency anemia, unspecified iron deficiency anemia type; Essential (primary) hypertension; Dyslipidemia; Skin tag; Tobacco dependence syndrome; Class 1 obesity due to excess calories without serious comorbidity with body mass index (BMI) of 31.0 to 31.9 in adult; Dietary counseling; Exercise counseling; Encounter for immunization; Other specified health status 11/14/2024 1:00 PM EST Office Visit [address] [address] Dolores Hodges ANP Essential (primary) hypertension (Primary Dx); Smoking; Encounter for immunization 11/14/[address] [address] Sheyla Harris MD CRITICAL RESULT 11/14/2024 Travel 11/14/2024 Orders Only [address] [address] Sheyla Harris MD Type 2 diabetes mellitus without complication, without long-term current use of insulin ([facility]) (Primary Dx); Iron deficiency anemia, unspecified iron deficiency anemia type 11/12/[address] [address] Sheyla Harris MD Med Refill 10/25/2024 Telephone [facility] [address] [place], [place] [id number] Angela Banuelos MA December Recall from Last 3 Months Immunizations Name Administration Dates Next Due DTP 05/16/1982,04/15/1978 Hep A, Adult 11/15/2024,02/28/2024 Hep B, adult 11/15/2024,02/28/2024 IPV 05/16/1982,1977 Influenza Injectable Quadriv alant Preservative [...] 0.6 oz pur e alcohol) alcohol binging Depression Answer Date Recorded Patient Health Questionnaire-9 Score 2 12/13/2024 Patient Health Questionnaire-9 Score 2 12/13/2024 Last PHQ-9: Questionnaire Data Not on file 0 12/13/2024 Housing Stability Answer Date Recorded What is your housing situation today? I have marlyn stanton 12/13/[address] you li ve. Do you have problems with any of the following? None of the above 12/13/2024 Food Insecurity Answer Date Recorded Within the past 12 months, y ou worried that your food would run out before you got money to buy more: Never True 12/13/2024 Within the past 12 months,th e food you bought just didn't last and you didn't have enough money to get more: Never True Transportation Answer Date Recorded In the past 12 months, has l ack of transportation kept you from medical appts, meetings, work or from getting things needed for daily living? No 12/13/2024 Utilities Answer Date Recorded In the past 12 months, has t he electric, gas, oil or water company threatened to shut off services in your home? No 12/13/2024 Depression Answer Date Recorded Patient Health Questionnaire-2 Score 1 12/13/2024 Internet Access Answer Date Recorded Internet Access Q1 Yes 12/13/2024 Internet Access Q2 Not on file 12/13/2024 Comments Unknown Sex and Gender Information Value Date Recorded Sex Assigned at Female 08/15/2022 10:15 AM EDT Legal Sex Female 10:15 AM EDT Gender Identity Female 08/15/2022 10:15 AM EDT Sexual Orientation Straight 08/15/2022 10 :15 AM EDT Last Filed Vital Signs Vital Sign Reading Time Taken Comments Blood Pressure 122/79 12/31/2024 12:56 PM EDT home BP monitor Pulse 79 12/31/2024 12:56 PM EDT home HR reading Temperature 37.2 ??C (98.9 ??F) 11/15/2024 9 :56 AM EST Respiratory Rate 21 12/13/2024 10:3 9 AM EST Oxygen Saturation 98% 11/15/2024 9:5 6 AM EST Inhaled Oxygen Concentration - - Weight 72.6 kg (160 lb) 12/13/2024 10:3 9 AM EST Height 157.5 cm (5' 2 ) 12/13/2024 10:3 9 AM EST Body Mass Index 29.26 12/13/2024 10:39 AM EST Plan of Treatment Upcoming Encounters Date Type Department Care Team (Late st Contact Info) Description 01/15/2025 10:30 AM EDT Medication Management [facility] [address] [place] [phone] Joy James, PharmD [address] [place] [address] 02/17/2025 11:00 AM EDT Office Visit [facility] [address] [place] [phone] Sheyla Harris MD [address] [place], [place] [phone] Health Maintenance Due Date Last Done Comments CT Colonography 1977 Colonoscopy 1977 FIT 1977 Sigmoidoscopy 1977 Hepatitis B Vaccines (3 of 3 - 19+ 3-dose series) 01/10/2025 11/15/2024, 02/28/2024 Diabetes: Foot Exam 02/27/2025 02/28/2024, 02/28/2024, 02/28/2024 Diabetes: Hemoglobin A1C 05/14/2025 025, 01/19/2024, 09/28/2021 Lipid Panel 11/14/2025 11/14/2024, 04/0 02/2024, 09/28/2021, Additional history exists Alcohol/Substance Use Screening 11/15/2025 11/15/2024 COVID-19 Vaccine ( season) 2025 12/09/2021, 12/09/2021, 06/18/2021, Additional history exists Postponed from 06/16/2024 (Patient Refused) Diabetes: Urine Protein Screening 11/15/2025 11/15/2024 Family Planning (PISQ) 11/15/2025 11/15/2024 Tobacco Screening 11/15/2025 11/15/2024 Depression Screening 12/13/2025 12/13/2024, 12/13/19 25 SDOH Screening 12/13/2025 12/13/2024 Mammogram 01/01/2026 01/02/2024, 04/15, 05/02/2022, Additional history exists FOBT 01/03/2026 01/03/2025, 02/17/2024 Eye Exam 06/26/2026 06/26/2024, 06/16, 06/26/2024, Additional [...] Completed 11/14/2024, , 08/12/2022, Additional history exists Hepatitis A Vaccines Aged Out 11/15/2024, 02/28/20 24 No longer eligible based on patient's age to complete this topic HIB Vaccines Aged Out No longer eligi [...] Procedure Name Priority Date/Time Associated Diagnosis Comments POCT OCCULT BLOOD BY PEROXID,FECES,1-3 NON CA SCREEN Routine 01/03/2025 9:59 AM EDT Iron deficiency anemia, unspecified iron deficiency anemia type ALBUMIN, RANDOM URINE W/CREATININE Routine 11/15/2024 9:12 AM EST Type 2 diabetes mellitus without complication, without long-term current use of insulin ([facility]) CBC WITH AUTO DIFFERENTIAL Routine 11/14/2024 9:18 PM EST Type 2 diabetes mellitus without complication, without long-term current use of insulin ([facility]) RED BLOOD COUNT Routine 11/14/2024 8:45 PM EST Type 2 diabetes mellitus without complication, without long-term current use of insulin ([facility]) TYPE AND SCREEN Routine 11/14/2024 8:45 PM EST Type 2 diabetes mellitus without complication, without long-term current use of insulin ([facility]) GLUCOSE, WHOLE BLOOD Routine 11/14/2024 8:41 PM [...] deficiency anemia, unspecified iron deficiency anemia type FERRITIN Routine 11/14/2024 1:49 PM EST Iron deficiency anemia, unspecified iron deficiency anemia type CBC WITH AUTO DIFFERENTIAL Routine 11/14/2024 1:49 PM EST Iron deficiency anemia, unspecified iron deficiency anemia type BASIC METABOLIC PANEL Routine 11/14/2024 1:49 PM EST Type 2 diabetes mellitus without complication, without long-term current use of insulin (CMS/HCC) HEMOGLOBIN A1C Routine 11/14/2024 1:49 PM EST Type 2 diabetes mellitus without complication, without long-term current use of insulin (CMS/HCC) LIPID PANEL, STANDARD Routine 11/14/2024 1:49 PM EST Type 2 diabetes mellitus without complication, without long-term current use of insulin (CMS/HCC) HEPATIC FUNCTION PANEL Routine 1:49 PM EST Type 2 diabetes mellitus [...] Recently Relevant to Health Maintenance Results * POCT Stool Card (01/03/2025 9:59 AM EDT) Fecal Occult Blood 1 Negative QC Media Lot # [id number] Lot# Expiration Date [id number] Stool 01/03/2025 9:59 AM EDT Sheyla Harris MD POINT OF CARE TEST ENTER/E DIT ORDERABLES Final Result * (ABNORMAL) Albumin, Random Urine W/Creatinine (11/15/2024 9:12 AM EST) Creatinine, Urine 56.65 mg/dL [facility] Microalbumin Urine 73.0 mg/L [facility] Microalbum Creatinine Ratio Ur 128.8(H) <30 ug/mg cr [facility] Comment:Albumin/Creatinine R atio Reference Ranges: Normal: < 30 ug/mg creatinine Microalbuminuria: 30 - 300 ug/mg creatinineClinical Albuminuria: > 300 ug/mg creatinine Urine 11/15/2024 9:12 AM EST 11/15/2024 11:37 AM EST Sheyla Harris MD LAB URINE ORDERABLES Final Result [facility] [address] [place] [address] [phone] * (ABNORMAL) CBC auto differential (11/14/2024 9:18 PM EST) Only the most recent of2 resultswithin the time period is included. White Blood Count 6.8 4.8 - 10.8 X10*3/uL [facility] Red Blood Count 4.33 4.20 - 5.50 X10*6/uL [facility] Hemoglobin 6.8(LL) 12.0 - 16.0 g/dl [facility] Comment:Results of HGB cook d to and read back by Marie 11/14/24 at 2128 by YOLY. Hematocrit 25.6(L) 37.0 - 47.0 % [facility] Mean Corpuscular Volume 59.1(L) 80.0 - 98.0 fL [facility] Mean Corpuscular Hemoglobin 15.7(L) 27.0 - 33.0 pg [facility] Mean Corpuscular HGB Conc 26.6(L) 31.0 - 35.0 g/dl [facility] Red Cell Distribution Width 20.5(H) 11.0 - 16.0 % [facility] Platelet Count 195 160 - 400 X10*3/uL [facility] Mean Platelet Volume TNP 9.4 - 12.3 fL [facility] Neutrophils Percent Auto 59.9 45 - 73 % [facility] Imm Gran Pct Auto 0.3 0.0 - 0.4 % [facility] Lymphocytes Percent Auto 29.3 20 - 40 % [facility] Monocytes Percent Auto 7.5 2 - 11 % [facility] Eosinophils Percent Auto 2.3 0 - 4 % [facility] Basophils Percent Auto 0.7 0 - 2 % [facility] NRBC Pct Auto 0.0 0.0 - 0.2 /100WBC [facility] Neutrophils Absolute Auto 4.1 2.0 - 8.3 x10*3/uL [facility] Imm Gran Abs Auto 0.02 0.00 - 0.03 X10*3/uL [facility] Lymphocytes Absolute Auto 2.0 1.2 - 4.9 X10*3/uL [facility] Monocytes Absolute Auto 0.5 0.1 - 1.2 X10*3/uL [facility] Eosinophils Absolute Auto 0.2 0.0 - 0.4 X10*3/uL [facility] Basophils Absolute Auto 0.1 0.0 - 0.2 X10*3/uL [facility] NRBC Abs Auto 0.000 0.0 - 0.012 X10*3/uL [facility] 11/14/2024 9:18 PM EST 11/14/2024 9:21 PM EST us Generic External Data Provider LAB BLOOD ORDERAB LES Final Result Performing Organization Address City/[facility]/ZIP Co de Phone Number [facility] [address] [place] [phone] * Red blood count (11/14/2024 8:45 PM EST) Pathologist [facility] Red Blood Cells: [id number] OP RC TRANSFUSED 11/14/24 2158 [id number] OP RC TRANSFUSED 11/15/24 0333 [facility] 11/14/2024 8:45 PM EST 11/14/2024 8:50 PM EST us Generic External Data Provider LAB BLOOD ORDERAB LES Final Result Performing Organization Address [facility]/ZIP Co de Phone Number [facility] [address] [place] [address] [phone] * Type and screen (11/14/2024 8:45 PM EST) Pathologist [facility] Blood Type OP [facility] Comment:RH IMMUNE GLOBULIN I NDICATED: NO Antibody Screen NEGATIVE [facility] 11/14/2024 8:45 PM EST 11/14/2024 8:50 PM EST Narrative [facility] - 11/15/2024 6:23 AM EST Results at Issue Units as of 11/14/248 ...Test View Group: Most Recent HGB ?? HCT Results ?LABORATORYDate ?Time Test ?Result ?Flag Normal Range11/14/242117 HGB ?6.8 ?*L ?? 12.0-16.0 g/dlResults of HGB called to and read back by Rowl 11/14/24 at 2127 by YOLY.11/14/242117 HCT ?25.6 ?L ?? 37.0-47.0 % Results at Issue Units as of 11/15/244 ...Test View Group: Most Recent HGB ?? HCT Results ?LABORATORYDate ?Time Test ?Result ?Flag Normal Range11/14/242117 HGB ?6.8 ?*L ?? 12.0-16.0 g/dlResults of HGB called to and read back by Rowl 11/14/24 at 2127 by YOLY.11/14/242117 HCT ?25.6 ?L ?? 37.0-47.0 % No us Generic External Data Provider LAB BLOOD BANK TE ST ORDERABLES Final Result Performing Organization Address [facility] de Phone Number [facility] [address] [place] [address] [phone] * Glucose, Whole Blood (11/14/2024 8:41 PM EST) Glucose, Whole Blood 102 60 - 115 mg/dL [facility] Comment:METER #: [id number] 11/14/2024 8:41 PM EST 11/14/2024 8:44 PM EST Generic External Data Provider LAB BLOOD ORDERAB LES Final Result Performing Organization Address [facility] de Phone Number [facility] [address] [place] [phone] * Slide Review (11/14/2024 1:49 PM EST) Slide Review VERIFIED [facility] 11/14/2024 1:49 PM EST 11/14/2024 3:58 PM EST us Sheyla Harris MD LAB BLOOD ORDERABLES Final Result Performing Organization Address [facility] de Phone Number [facility] [address] [place] [address] [phone] * Pathologist Review - CBC (11/14/2024 1:49 PM EST) Pathologist Review - CBC SEE NOTE [facility] Comment:- Microcytic, hypoch romic anemia with anisocytosis: consideriron deficiency.Reviewed by Autumn Balderas MD 11/14/2024 1:49 PM EST 11/14/2024 3:58 PM EST us Sheyla Harris MD LAB BLOOD ORDERABLES Final Result Performing Organization Address [facility] Co de Phone Number [facility] [address] [place] [phone] * TSH with Reflex to Free T4 (11/14/2024 1:49 PM EST) Pathologist [facility] TSH reflex Free T4 0.59 0.32 - 4.0 uIU/mL [facility] Blood 11/14/2024 1:49 PM EST 11/14/2024 3:58 PM EST Sheyla Harris MD LAB BLOOD ORDERABLES Final Result Performing Organization Address [facility]/ZIP Co de Phone Number [facility] [address] [place] [address] [phone] * (ABNORMAL) Iron And Total Iron Binding Capacity (11/14/2024 1:49 PM EST) [facility] Iron 13(L) 30 - 160 mcg/dL [facility] Total Iron Binding Capacity 458(H) 228 - 428 mcg/dL [facility] Percent Iron Saturation 3(L) 15 - 50 % [facility] Unsaturated Iron Binding 445 ug/dL [facility] Blood Venous blood specimen / Unknown 11/14/2024 1:49 PM EST 11/14/2024 3:58 PM EST Sheyla Harris MD LAB BLOOD ORDERABLES Final Result Performing Organization Address [facility]/ZIP Co de Phone Number [facility] [address] [place] [address] [phone] * (ABNORMAL) Hemoglobin A1c (11/14/2024 1:49 PM EST) Pathologist [facility] Hemoglobin A1c 6.1(H) <6.0 % [facility] Comment:Hemoglobin A1C Refer ence Range Adults: 4.8 - 6.0 % Non diabetic: < 6.0 % Goal: < 7.0 %Additional Action Suggested: > 8.0 %Note: Hemoglobin A1c results are invalid for patients with abnormal amounts of HbF. Blood transfusions may impact the HbA1c concentration in the patient sample. Estimated Average Glucose 128 mg/dL [facility] Comment:eAG = Estimated ave rage glucose which is %A1C expressed asaverage glucose, using the formula of the L9Q-WbmmipbOmzmeth Glucose study (ADAG), Diabetes Care, Vol.31,#8,May. 2007 Blood Venous blood specimen / Unknown 11/14/2024 1:49 PM EST 11/14/2024 3:58 PM EST Sheyla Harris MD LAB BLOOD ORDERABLES Final Result [facility] [address] [place] [phone] [phone] * (ABNORMAL) Ferritin (11/14/2024 1:49 PM EST) Ferritin 9(L) 10 - 250 ng/mL [facility] Blood Venous blood specimen / Unknown 11/14/2024 1:49 PM EST 11/14/2024 3:58 PM EST Sheyla Harris MD LAB BLOOD ORDERABLES Final Result Performing Organization Address [facility]/ZIP Co de Phone Number [facility] [address] [place] [phone] * Vitamin B12 (11/14/2024 1:49 PM EST) Vitamin B12 422 200 - 900 pg/mL [facility] Comment:NORMAL 200-900 PG/ML INDETERMINATE 160-199 PG/ML DEFICIENT < 160 PG/ML Blood Venous blood specimen / Unknown 11/14/2024 1:49 PM EST 11/14/2024 3:58 PM EST Sheyla Harris MD LAB BLOOD ORDERABLES Final Result Performing Organization Address City/[facility]/ZIP Co de Phone Number [facility] [address] [place] [address] [phone] * (ABNORMAL) Hepatic Function Panel (11/14/2024 1:49 PM EST) Bilirubin, Total 0.3 0.0 - 1.0 mg/dL [facility] Bilirubin, Direct 0.1 0.0 - 0.5 mg/dL [facility] Aspartate Amino Transferase 38(H) 5 - 31 U/L [facility] Alanine Aminotransferase 19 0 - 31 U/L [facility] Total Protein 7.7 6.5 - 8.0 g/dL [facility] Albumin Level 4.3 3.5 - 5.0 g/dL [facility] Alkaline Phosphatase 84 39 - 117 U/L [facility] Blood Venous blood specimen / Unknown 11/14/2024 1:49 PM EST 11/14/2024 3:58 PM EST us Sheyla Harris MD LAB BLOOD ORDERABLES Final Result Performing Organization Address City/State/[facility] Co de Phone Number [facility] [address] [place] [address] [phone] * (ABNORMAL) Lipid Panel, Standard (11/14/2024 1:49 PM EST) Triglycerides 161(H) <150 mg/dL [facility] Comment:Desirable Triglyceri de: less than 150 mg/dLBorderline High Triglyceride 150-199 mg/dLHigh Triglyceride: 200-499 mg/dLVery High Triglyceride: greater than or equal to 5OO mg/dL Cholesterol 103 <200 mg/dL [facility] Comment:Desirable Cholestero l: less than 200 mg/dLBorderline High Cholesterol: 200-239 mg/dLHigh Cholesterol: greater than 239 mg/dL LDL Cholesterol Calculated 42 <100 mg/dL [facility] Comment:Desirable LDL: less than 100 mg/dLNear Optimal/Above Optimal LDL: 110- 129 mg/dLBorderline High LDL: 130-159 mg/dLHigh LDL: 160-189 mg/dLVery High LDL: greater than or equal to 190 mg/dL HDL Cholesterol 29(L) >40 mg/dL [facility] Comment:Desirable HDL: great er than 40 mg/dL Note: This HDL assay may give artificially low results in patients with liver disease. Blood Venous blood specimen / Unknown 11/14/2024 1:49 PM EST 11/14/2024 3:58 PM EST Sheyla Harris MD LAB BLOOD ORDERABLES Final Result Performing Organization Address [facility]/ZIP Co de Phone Number [facility] [address] [place] [address] [phone] * (ABNORMAL) Basic Metabolic Panel (11/14/2024 1:49 PM EST) Sodium 139 135 - 145 mmol/L [facility] Potassium 4.7 3.3 - 5.1 mmol/L [facility] Chloride 104 96 - 108 mmol/L [facility] Carbon Dioxide 27 22 - 29 mmol/L [facility] Anion Gap 13 12 - 20 [facility] Urea Nitrogen (BUN) 8(L) 9 - 16 mg/dL [facility] Creatinine, Serum 0.77 0.5 - 1.4 mg/dL [facility] Estimated Glomerular Filt Rate >60 [facility] Comment:Chronic Kidney Disea se: Estimated GFR < 60 mL/min/1.72s4Mlhhib Kidney Disease: Estimated GFR < 15 mL/min/1.73m2 Glucose 104 60 - 115 mg/dL [facility] Calcium 9.4 8.4 - 10.2 mg/dL [facility] Blood Venous blood specimen / Unknown 11/14/2024 1:49 PM EST 11/14/2024 3:58 PM EST Sheyla Harris MD LAB BLOOD ORDERABLES Final Result Performing Organization Address [facility] Co de Phone Number [facility] [address] [place] [address] [phone] * HPV mRNA E6/E7 w/Reflex to HPV Genotypes 16, 18/45 (03/27/2024 11:35 AM EDT) HPV nRNA E6/E7 Not Detected Not Detected [facility] Comment:Methodology: Transcr iption-Mediated AmplificationThis assay detects E6/E7 viral messenger RNA (mRNA) from 14high-risk HPV types (16,18,31,33,35,39,45,51,52,56,58,59,66,68).Cervical sources are required for HPV testing.If a vaginal source from a patient who has had atotal hysterectomy with removal of cervix wassubmitted, please contact the testing laboratoryfor alternative testing options.For additional information, please refer tohttp://education.Mavent/faq/KCV667u5(This link if provided for information/educational purposes only.)THIS TEST WAS PERFORMED AT:[facility] [place] [phone] MELÉNDEZ MD HPV mRNA E6/E7 TNP [facility] HPV 16 RNA [facility] HPV 18/45 RNA [facility] 03/27/2024 11:3 5 AM EDT 03/28/2024 8:00 AM EDT us Generic External Data Provider LAB CYTOLOGY JESÚS CHADWICK Final Result [facility] [address] [place] [address] [phone] * Pap Smear (03/27/2024 11:35 AM EDT) 03/27/2024 11:3 5 AM EDT 03/28/2024 8:00 AM EDT Narrative [facility] - 04/14/2024 3:51 PM EDT ----- ------- Name: Siobhan Armijo ? Age/Sex: 48/F ? : 1975 Unit#: [id number] ?? Attend Dr: Madison Epstein CNM ?Re03/27/24 ?Status: DEP REF ? Location: HO.LNP ?Disch: ? ----- ------- SPEC : [id number] ?RECD: 03/28/24 ? STATUS: ??SOUT ? REQ NUM: [id number] ? KAVITA: 03/27/24 ? SUBM DR: Madison Epstein CNM ? ENTERED: ??03/28/24 ?SP TYPE: Pap Smr ?OTHR DR: Angelia [...] 66, 68) ? HPV testing performed by [facility], [place], [place]. ??See reference laboratory ?? portion of the EMR for entire report. ?Clinical Information LMP: 02/28/24 Previous PAP test: 2021, WN Clinical history: Abnormal uterine and vaginal bleeding. ? Material Received ?? ThinPrep-Cervical Copies To: ?? Madison Epstein CNM ?? [facility] ?? [address] ?? [place] [address] ?? [phone] ?? Angelia Magdaleno MD ?? [address] ?? [place] [address] ?? [phone] ----- ------- Signed (signature on file) Alexus Tran Heidi 04/14/24 1551 ? ----- ------- ? END OF REPORT ? Generic External Data Provider LAB CYTOLOGY ORDE RABLES Final Result Performing Organization Address [facility] Co de Phone Number [facility] [address] [place] [phone] [phone] * FIT DNA/Cologuard Cancer Screening (02/17/2024) [facility] Cologuard Cancer Screen Negative Stool Historical Provider HEALTH MAINTENANCE Final Result * Hepatitis C Antibody with Reflex to HCV, RNA, Quantitative, Real-Time PCR (01/19/2024 11:50 AM EDT) [facility] Hepatitis C Antibody Nonreactive Nonreactive [facility] Comment:Antibodies to HCV no t detected; does not exclude early acuteHCV infection. Blood Venous blood specimen / Unknown 01/19/2024 11:50 AM EDT 01/19/2024 1:11 PM EDT Angelia Minor MD LAB BLOOD ORDERAB LES Final Result Performing Organization Address [facility] Co de Phone Number [facility] [address] [place] [phone] * HIV-1/2 Antigen and Antibodies, Fourth Generation, with Reflexes (01/19/2024 11:50 AM EDT) [facility] HIV AB/AG Nonreactive Nonreactive [facility] Comment:HIV-1 p24 Ag and/or HIV-1/HIV-2 Ab not detected.A test result that is nonreactive does not exclude thepossibility of exposure to or infection with HIV-1 and/orHIV-2. Nonreactive results in this assay for individualswith prior exposure to HIV-1 and/or HIV-2 may be due toantigen and antibody levels that are below the limit ofdetection of this assay.The [employer] HIV Ag/Ab Combo assay result andsupplemental assay results should be interpreted inconjunction with the patient's clinical presentation,history and other laboratory results. If the results areinconsistent with clinical evidence, additional testing issuggested to confirm the result. Blood Venous blood specimen / Unknown 01/19/2024 11:50 AM EDT 01/19/2024 1:11 PM EDT us Angelia Minor MD LAB BLOOD ORDERAB LES Final Result [facility] [address] [place] [phone] * BI Mammogram Screening Tomosynthesis Bilateral (01/02/2024 1:52 PM EDT) Anatomical Region Laterality Modality Breast Bilateral Mammography 01/02/2024 1:52 PM EDT Narrative 01/24/2024 12:23 AM EDT ? [facility] ? [address] ?[place] [address] ? Mammography Report ? Signed ? Patient: Armijo,Siobhan ?MR#: [id number] ?? 98 ? : 1975 ?Acct:[id number] ? Age/Sex: 48 / F ?ADM Date: 01/02/24 ? Loc: HO.MAMMO ? Attending Dr: Sheyla Harris MD ? Ordering Physician: Angelia Magdaleno MD ?Re ?? sults: 1Negative ? Date of Service: 01/02/24 ?Follow Up: 1 Year From Orig ?? inal Mammogram ? Procedure(s): MM tomosynthesis screening BI ?? Accession Number(s): [id number] ? cc: Sheyla Harris MD; Angelia Magdaleno [...] by Yoana Bruno MD in OV> ? 01/24/24 0019 ? DD/ 1352 ? TD/TT: ? Medical Coding Manager: ? Procedure Note Rc Reese - 01/24/2024 [facility] [address] [place] [address] Mammography Report Signed Patient: ArmijoBaldev#: [id number] 98 : 1975Acct:[id number] Age/Sex: 48 / FADM Date: 01/02/24 Loc: HO.MAMMO Attending Dr: Sheyla Harris MD Ordering Physician: Angelia Magdaleno sults: 1Negative Date of Service: 01/02/24Follow Up: 1 Year From Orig inal Mammogram Procedure(s): MM tomosynthesis screening BI Accession Number(s): [id number] cc: Sheyla Harris MD; Angelia Magdaleno MD [...] in OV> 01/24/24 0019 DD/ 1352 TD/TT: Medical Coding Manager: us Angelia Minor MD IMG BI PROCEDURES Final Result from Last 3 Months or Most Recently Relevant to Health Maintenance 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
--- OUTSIDE RECORDS SUMMARY | 2025-01-13 16:25 | XMS_ITS | Encounter Summary ---
Author Organization [employer] Address [address] [place] [address] [address] [place] [address] Care Team Providers Care Control Panel Operator Name Role Phone Sheyla Harris MD Primary Care Provider [phone] Madison Epstein Unavailable Meka García OD Unavailable Sheryl Marti MD Unavailable [phone] Joy James PharmD Unavailable Reason for Visit * Reason Comments Med Refill Encounter Details Date Type Department Care Team (Late st Contact Info) Description 05/30/2023 Refill [facility] [address] [place] [address] Ayesha Shannon MD [address] [place] [address] Gastroesophageal reflux disease, unspecified whether esophagitis present [...] Description 01/15/2025 10:30 AM EDT Medication Management [facility] [address] [place] [address] PiersJoy Robin PharmD [address] [place] [address] 02/17/2025 11:00 AM EDT Office Visit [facility] [address] [place] [address] Sheyla Harris MD [address] [place] [address] documented as of this encounter Visit Diagnoses Diagnosis Gastroesophageal reflux disease, unspecified whether esophagitis present documented in this encounter Care Teams Control Panel Operator Relationship Specialty Start Date End Date Sheyla Harris MD [address] [place] [address] PCP - General Family Medicine 10/16/18 Madison Epstein [address] [address] Gynecology 10/30/24 Meka García OD [address] [place] [address] Optometry 10/30/24 Sheryl Marti MD [address] [place] [address] Hematology and Oncology 12/13/24 Joy James, Elena [address] [place] [phone] Pharmacist Internal Medicine 12/31/24 documented as of this encounter
--- OUTSIDE RECORDS SUMMARY | 2025-01-13 16:25 | XMS_ITS | Encounter Summary ---
Author Organization [facility] Address [address] [place] [address] Phone Care Team Providers Care Warping Mill Operator Name Role Phone Sheyla Harris MD Primary Care Provider U keya Encounter Details Date Type Department Care Team (Late st Contact Info) Description 09/01/2022 Documentation Only [facility] [address] [place] [phone] Azra Coreas Social History Tobacco [...] on filedocumented in this encounter Care Teams Warping Mill Operator Relationship Specialty Start Date End Date Sheyla Harris MD PCP - General Family Medicine 04/19/22 documented as of this encounter
[2025-01-13 16:37] LABS: Basophils Absolute Auto 0.1 X10*3/uL (0.0-0.2); Basophils Percent Auto 0.8 % (0-2); Eosinophils Absolute Auto 0.1 X10*3/uL (0.0-0.4); Eosinophils Percent Auto 1.7 % (0-4); Hematocrit 33.8 % (37.0-47.0); Hemoglobin 9.9 g/dl (12.0-16.0); Imm Gran Abs Auto 0.05 X10*3/uL (0.00-0.03); Imm Gran Pct Auto 0.8 % (0.0-0.4); Lymphocytes Absolute Auto 1.9 X10*3/uL (1.2-4.9); Lymphocytes Percent Auto 28.6 % (20-40); Mean Corpuscular HGB Conc 29.3 g/dl (31.0-35.0); Mean Corpuscular Hemoglobin 20.8 pg (27.0-33.0); Mean Corpuscular Volume 70.9 fL (80.0-98.0); Monocytes Absolute Auto 0.4 X10*3/uL (0.1-1.2); Monocytes Percent Auto 6.5 % (2-11); Neutrophils Absolute Auto 4.1 x10*3/uL (2.0-8.3); Neutrophils Percent Auto 61.6 % (45-73); Platelet Count 278 X10*3/uL (160-400); Red Blood Count 4.77 X10*6/uL (4.20-5.50); Red Cell Distribution Width 22.8 % (11.0-16.0); White Blood Count 6.6 X10*3/uL (4.8-10.8)
[2025-01-13 17:14] LABS: Ferritin 14 ng/mL (10-250)
[2025-01-13 17:21] LABS: Alanine Aminotransferase 26 U/L (0-31); Albumin Level 4.5 g/dL (3.5-5.0); Alkaline Phosphatase 71 U/L (39-117); Anion Gap 14 (12-20); Aspartate Amino Transferase 34 U/L (5-31); Bilirubin Total 0.2 mg/dL (0.0-1.0); Blood Urea Nitrogen 13 mg/dL (9-16); Calcium 9.7 mg/dL (8.4-10.2); Carbon Dioxide 27 mmol/L (22-29); Chloride 102 mmol/L (96-108); Estimated Glomerular Filt Rate > 60; Glucose Random 128 mg/dL (60-115); Potassium 4.3 mmol/L (3.3-5.1); Sodium 139 mmol/L (135-145); Total Protein 7.4 g/dL (6.5-8.0)
== END 2025-01-13 14:32 | disposition home or self-care (01) ==
LOC: HO.HHCL 14:31
PROVIDERS: Internal Medicine Medical Oncology; Visit Provider Family Medicine
DX: D50.9 Iron deficiency anemia, unspecified (principal)
CPT/HCPCS: 36415; 80053; 82728; 85025

== ENCOUNTER 2025-02-26 10:30 | Outpatient (RCR) | payer MEDICAID, SELFPAY ==
[2025-01-22 10:51] VITALS: BP 120/85; PULSE 90; RESP 16; TEMP 36.9; O2SAT 99
[2025-01-22] MEDS: Iron Sucrose Complex 200 MG/10 ML VIAL IVPUSH (10:57)
[2025-01-29 12:08] VITALS: BP 139/77; PULSE 96; RESP 16; TEMP 36.4; O2SAT 100
[2025-01-29] MEDS: Iron Sucrose Complex 200 MG in 0.9 % Sodium Chloride 100 ML 440 MG IV (12:13)
[2025-02-05 10:17] VITALS: BP 121/81; PULSE 80; RESP 16; TEMP 36.3; O2SAT 100
[2025-02-05] MEDS: Iron Sucrose Complex 200 MG in 0.9 % Sodium Chloride 100 ML 440 MG IV (10:21)
[2025-02-12 11:19] VITALS: BP 125/77; PULSE 106; RESP 16; TEMP 37.2; O2SAT 99
[2025-02-12] MEDS: Iron Sucrose Complex 200 MG in 0.9 % Sodium Chloride 100 ML 440 MG IV (11:34)
[2025-02-12 11:53] LABS: Hematocrit 39.1 % (37.0-47.0); Hemoglobin 12.2 g/dl (12.0-16.0); Mean Corpuscular HGB Conc 31.2 g/dl (31.0-35.0); Mean Corpuscular Hemoglobin 23.9 pg (27.0-33.0); Mean Corpuscular Volume 76.5 fL (80.0-98.0); Platelet Count 260 X10*3/uL (160-400); Red Blood Count 5.11 X10*6/uL (4.20-5.50); Red Cell Distribution Width 22.5 % (11.0-16.0); White Blood Count 4.9 X10*3/uL (4.8-10.8)
[2025-02-12 12:25] LABS: Ferritin 375 ng/mL (10-250)
[2025-02-19 10:19] VITALS: BP 150/100; PULSE 90; RESP 16; TEMP 36.6; O2SAT 99
[2025-02-19] MEDS: Iron Sucrose Complex 200 MG in 0.9 % Sodium Chloride 100 ML 440 MG IV (10:26)
[2025-02-26 10:20] VITALS: BP 155/78; PULSE 90; RESP 16; TEMP 36.7; O2SAT 99
[2025-02-26] MEDS: Iron Sucrose Complex 200 MG in 0.9 % Sodium Chloride 100 ML 440 MG IV (10:40)
[2025-02-26 10:41] LABS: Hematocrit 42.7 % (37.0-47.0); Hemoglobin 13.7 g/dl (12.0-16.0); Mean Corpuscular HGB Conc 32.1 g/dl (31.0-35.0); Mean Corpuscular Hemoglobin 24.8 pg (27.0-33.0); Mean Corpuscular Volume 77.4 fL (80.0-98.0); Mean Platelet Volume 9.8 fL (9.4-12.3); Platelet Count 231 X10*3/uL (160-400); Red Blood Count 5.52 X10*6/uL (4.20-5.50); Red Cell Distribution Width 21.6 % (11.0-16.0); White Blood Count 7.2 X10*3/uL (4.8-10.8)
[2025-02-26 11:12] LABS: Ferritin 424 ng/mL (10-250)
== END 2025-02-26 11:10 | disposition home or self-care (01) ==
LOC: HO.INF 10:30
PROVIDERS: PCP Family Medicine; Visit Provider Internal Medicine Medical Oncology
DX: D50.9 Iron deficiency anemia, unspecified (principal)
CPT/HCPCS: 36415; 82728; 85027; 96365; 96374; J1756

== ENCOUNTER 2025-05-16 10:02 | Outpatient (REF) | payer MEDICAID, SELFPAY ==
--- OUTSIDE RECORDS SUMMARY | 2025-05-16 10:11 | XMS_ITS | Clinical Summary ---
Author Organization [facility] Facility Address [address] [address] Care Team Providers Care Mosaic Tile Maker Name Role Phone Sheyla Harris MD Primary Care Provider U navailable Allergies No known active allergies Medications omeprazole (PriLOSEC) [address] capsule TAKE 1 CAPSULE BY MOUTH EVERY DAY BEFORE A MEAL NEEDED 2 Active Vitamin D, Ergocalciferol, 44750 units capsule Take 1,000 mg by mouth [...] Anemia, not otherwise specified 07/19/2022 Dyslipidemia 07/19/2022 Social History Tobacco Use Types Packs/Day Years [...] 3 - 19+ 3-dose series) 1996 02/28/2024 Diabetes: Hemoglobin A1C 11/12/2024 01/19/2024, 09/15 Diabetes: Ophthalmology Exam 11/12/2024 Diabetes: Pedal Pulse Checked 11/12/2024 Diabetes: Sensory Foot Exam 11/12/2024 Diabetes: Visual Foot Exam 11/12/2024 Influenza Vaccine (#1) 2025 12/06/2023, 2021 Pneumococcal Vaccine: Peds ( 0 to 5 Years) and At-Risk Patients (6 to 49 Years) Completed 02/28/2024 Procedures Procedure Name Priority [...] Most Recently Relevant to Health [place] Care Teams Mosaic Tile Maker Relationship Specialty Start Date End Date Toombs, Sheyla Jackson MD PCP - General Family Medicine 04/19/22
[2025-05-16 12:19] LABS: MANUAL DIFF FLAG NO
[2025-05-16 12:20] LABS: Hematocrit 42.1 % (37.0-47.0); Hemoglobin 14.7 g/dl (12.0-16.0); Imm Gran Abs Auto 0.03 X10*3/uL (0.00-0.03); Imm Gran Pct Auto 0.4 % (0.0-0.4); Lymphocytes Absolute Auto 1.4 X10*3/uL (1.2-4.9); Mean Corpuscular HGB Conc 34.9 g/dl (31.0-35.0); Mean Corpuscular Hemoglobin 28.1 pg (27.0-33.0); Mean Corpuscular Volume 80.3 fL (80.0-98.0); NRBC Abs Auto 0.000 X10*3/uL (0.0-0.012); NRBC Pct Auto 0.0 /100WBC (0.0-0.2); Platelet Count 207 X10*3/uL (160-400); Red Blood Count 5.24 X10*6/uL (4.20-5.50); White Blood Count 6.8 X10*3/uL (4.8-10.8)
[2025-05-16 13:09] LABS: Alanine Aminotransferase 24 U/L (0-31); Albumin Level 4.5 g/dL (3.5-5.0); Alkaline Phosphatase 72 U/L (39-117); Anion Gap 14 (12-20); Aspartate Amino Transferase 46 U/L (5-31); Blood Urea Nitrogen 9 mg/dL (9-16); Calcium 8.9 mg/dL (8.4-10.2); Carbon Dioxide 29 mmol/L (22-29); Chloride 102 mmol/L (96-108); Cholesterol 134 mg/dL (<200); Estimated Glomerular Filt Rate > 60; Ferritin 191 ng/mL (10-250); HDL Cholesterol 36 mg/dL (>40); Iron 72 mcg/dL (30-160); Percent Iron Saturation 24 % (15-50); Potassium 3.4 mmol/L (3.3-5.1); Sodium 142 mmol/L (135-145); Total Iron Binding Capacity 306 mcg/dL (228-428); Total Protein 7.0 g/dL (6.5-8.0); Triglycerides 232 mg/dL (<150); Unsaturated Iron Binding 234 ug/dL
== END 2025-05-16 10:03 | disposition home or self-care (01) ==
LOC: HO.HHCL 10:02
PROVIDERS: PCP Family Medicine; Visit Provider Family Medicine
DX: E87.5 Hyperkalemia (principal); E78.5 Hyperlipidemia, unspecified; D50.9 Iron deficiency anemia, unspecified
CPT/HCPCS: 36415; 80053; 80061; 80076; 82248; 82728; 83540; 85025